=== PATIENT | male | born 1935 | race Caucasian/White ===

== ENCOUNTER → 2017-03-19 | Outpatient (CLI) | payer OTHER ==
[~2017-03-19] MED LIST: ASCO500T16 PO; ASPI325T45 PO; CHOL400C7 PO; DILT240C75 PO; TRIA37.5 PO
[2017-03-19 17:45] LABS: ALT/SGPT 17 U/L (12-78); AST/SGOT 17 U/L (15-37); BLOOD UREA NITROGEN 8 mg/dl (7-18); BUN/CREATININE RATIO 11.7 (10-20); CALCIUM 9.2 mg/dl (8.5-10.1); CARBON DIOXIDE 24 mmol/L (21-32); CHLORIDE 101 mmol/L (98-107); CREATININE 0.72 mg/dl (0.60-1.40); GLUCOSE 86 mg/dl (70-99); SODIUM 134 mmol/L (136-145)
[2017-03-19 17:55] LABS: ALB/GLOB RATIO 0.8 (0.9-2); ALKALINE PHOSPHATASE 102 U/L (45-117)
== END | disposition home or self-care (01) ==
LOC: C.LABPVFM 16:05
PROVIDERS: ATTEND Family Medicine
DX: R63.4 Abnormal weight loss (principal)

== ENCOUNTER 2018-07-21 07:35 | Inpatient (IN) ==
[2018-07-21] MEDS ORDERED: ALBUT/IPRATROP 3MG/0.5MG NEB 3 ML VIAL ONE (07:38)
[2018-07-21] MEDS ORDERED: SODIUM CHLORIDE 0.9% 500 ML IV SCH (07:45)
[2018-07-21] MEDS ORDERED: methylPREDNISolone 125 MG/2 ML VIAL IV STA (07:46)
[2018-07-21] MEDS ORDERED: ALBUT/IPRATROP 3MG/0.5MG NEB 3 ML VIAL NEB ONE (07:46)
--- NOTE | 2018-07-21 08:12 | XRay Report ---
XR chest 1V portable CLINICAL HISTORY: Chest Pain COMPARISON STUDY: Chest CT and chest radiograph July 20, 2018. FINDINGS: Moderate cardiomegaly is unchanged. There is no pneumothorax. Small bilateral pleural effus ions persist. Bibasilar opacities are again noted. Pulmonary edema has slightly increased. IMPRESSION: 1. Slight increase in pulmonary edema. 2. Persistent small bilateral pleural effusions and bibasilar opacities. Electronically signed by: Irving Hassan M.D. 07/21/2018 8:10 AM
[2018-07-21 08:46] LABS: Basophils # (auto) 0.02 K/uL (0-0.2); Basophils % (auto) 0.2 %; Eosinophils # (auto) 0.03 K/uL (0-0.5); Eosinophils % (auto) 0.4 %; Hematocrit (blood only) 37.8 % (42-52); Hemoglobin 12.8 g/dL (14.0-18.0); Immature Granulocytes # (auto) 0.02 K/uL (0.00-0.02); Immature Granulocytes % (auto) 0.2 %; Lymphocytes # (auto) 0.96 K/uL (1.2-3.4); Mean Corpuscular Hgb Conc 33.9 g/dL (32-36); Mean Corpuscular Volume 82.2 fL (80-100); Mean Platelet Volume 8.3 fL (7.4-10.4); Monocytes # (auto) 0.76 K/uL (0.11-0.59); Monocytes % (auto) 9.5 %; Neutrophils # (auto) 6.24 K/uL (1.4-6.5); Neutrophils % (auto) 77.7 %; Platelet Count 269 K/uL (130-400); RDW Coefficient of Variation 14.3 % (11.5-14.5); RDW Standard Deviation 42.9 fL (36.4-46.3); White Blood Count 8.03 K/uL (4.8-10.8)
[2018-07-21 08:52] LABS: Base Excess VBG -2.3 mEq/L; HCO3 VBG 23 mmol/L; PCO2 VBG 41 mmHg (38-50); PO2 VBG 24 mmHg; pH VBG 7.37 (7.36-7.41)
[2018-07-21] MEDS ORDERED: NITROGLYCERIN SL 0.4 MG/TAB TAB SL STA (09:01)
[2018-07-21 09:07] LABS: Alanine Aminotransferase 20 U/L (12-78); Albumin Level 3.4 gm/dl (3.4-5.0); Aspartate Aminotransferase 19 U/L (15-37); BUN Creatinine Ratio 16.1 (10-20); Blood Urea Nitrogen 15 mg/dl (7-18); Calcium 8.8 mg/dl (8.5-10.1); Carbon Dioxide 20 mmol/L (21-32); Chloride 99 mmol/L (98-107); Creatinine Clr Calc Pharmacy 51.3 ml/min; Est GFR (African American) 85.5; Est GFR (Non-African American) 73.7; Glucose 92 mg/dl (70-99); Magnesium 2.2 mg/dl (1.8-2.4); Oxygen Saturation VBG < 60.0 %; Sodium 132 mmol/L (136-145)
[2018-07-21 09:13] LABS: Albumin Globulin Ratio 0.8 (0.9-2); Alkaline Phosphatase 112 U/L (45-117); Globulin 4.4 gm/dl (2.5-4.0); NT Pro B Type Natriuretic Pept 2129 pg/ml (0-1800); Phosphorus 2.8 mg/dl (2.5-4.9); Total Protein 7.8 gm/dl (6.4-8.2); Troponin I < 0.015 ng/ml (0-0.045)
--- NOTE | 2018-07-21 10:39 | Emergency Department Note ---
Entered by Mitzi Shaver acting as a scribe for History of Present Illness General Chief complaint: Shortness of Breath/Dyspnea Time Seen by Provider: 07/21/18 07:38 Source: patient and other (nursing staff) History of Present Illness Onset (ago): day(s) (this morning) Location: chest Pain Consistency: + other (worsening) Quality: + other (shortness of breath) Relieved By: + medication (Duoneb) Associated symptoms: + denies other symptoms (diarrhea); no fever/chills (fever ) and no nausea/vomiting The patient is an 82 year old male who presents to the Emergency Room with complaints of worsening shortness of breath starting this morning. Per nursing staff, the patient was here yesterday for similar symptoms. He states that the patient was supposed to be admitted, but it sounds like he signed out AMA. He reports that that this morning the patient woke up and was unable to catch his breath so he called EMS. He reports that the patient received a Duoneb on the way in and it offered some relief, but not much. The patient notes that he is not normally on oxygen. The patient denies fever, nausea, vomiting, and diarrhea. Home Medications Home Medications Medication Instructions Recorded Confirmed Type aspirin 325 mg PO DAILY 06/12/18 07/21/18 History diltiazem HCl 360 mg PO QAM 06/12/18 07/21/18 History famotidine [Pepcid] 20 mg PO HS 06/12/18 07/21/18 History losartan [Cozaar] 25 mg PO QAM 06/12/18 07/21/18 History nitroglycerin [Nitrostat] 0.4 mg SUBLINGUAL UD PRN 06/12/18 07/21/18 History sennosides-docusate sodium 2 tab PO BID PRN 06/12/18 07/21/18 History [Senokot-S] albuterol sulfate [Ventolin HFA] 1 - 2 puff INHALATION QID PRN 07/20/18 History Allergies Allergy/AdvReac Type Severity Reaction Status Date / Time No Known Allergies Allergy Unverified 07/21/18 07:48 Past Med/Surg History Medical History Diaphragmatic hernia (Acute) Left sided chest pain (Acute) Chronic hyponatremia (Acute) Exposure to chemical inhalation (Acute) Hematuria (Acute) Generalized weakness (Acute) Hypokalemia (Acute) Hypomagnesemia (Acute) Hypokalemia (Chronic) Hypomagnesemia (Chronic) Surgical History Lower limb amputation status (Chronic) Family History Other Family history non-contributory Social History marital status: / Current Living Situation: Alone current occupational status: retired Other Information That Helps Us Care for You: No Feels Safe at Home: Yes Safety Concerns: Feels Safe At This Time Smoking Status: Current every day smoker Tobacco Type: pipe Do You Dip or Chew Tobacco: No Second Hand Exposure: Yes Tobacco Cessation Education Requested by Patient: No Hx Alcohol Use: Yes Alcohol type: hard liquor Alcohol Intake Frequency: a few times a week Hx Substance Use: No Beliefs That Will Affect Care: None Communication Ability: Effective Corrosion Technician Required: Yes Review of Systems See HPI for pertinent positives & negatives. and A total of 10 systems reviewed and were otherwise negative Physical Exam Vital Signs Vital Signs - 24 hr 07/21/18 07:46 07/21/18 07:49 07/21/18 08:00 Temperature 37 C Temperature Source Oral Sepsis Recent Fever Within 48 Hours No Sepsis Action Taken by Nursing No Action Required Pulse Rate 49 L 57 L 57 L Pulse Rate [Finger] Pulse Rhythm Regular Pulse Rhythm [Finger] Pulse Strength Normal Pulse Strength [Finger] Respiratory Rate 22 26 H 28 H Respiratory Effort / Characteristics Spontaneous Labored Respiratory Depth Shallow Respiratory Pattern Regular Blood Pressure 202/64 H 200/77 H Blood Pressure [Left Arm] Blood Pressure [Right Arm] Blood Pressure Mean 110 118 Blood Pressure Mean [Left Arm] Blood Pressure Mean [Right Arm] Blood Pressure Position Lying Blood Pressure Position [Left Arm] Blood Pressure Position [Right Arm] Pulse Oximetry 98 100 98 Oxygen Delivery Method Nasal Cannula Nasal Cannula Oxygen Flow Rate 3 Fraction of Inspired Oxygen 07/21/18 08:02 07/21/18 08:12 07/21/18 08:30 Temperature Temperature Source Sepsis Recent Fever Within 48 Hours Sepsis Action Taken by Nursing Pulse Rate 56 L 55 L Pulse Rate [Finger] 56 L Pulse Rhythm Pulse Rhythm [Finger] Pulse Strength Pulse Strength [Finger] Respiratory Rate 22 22 25 H Respiratory Effort / Characteristics Spontaneous Respiratory Depth Respiratory Pattern Blood Pressure 200/77 H Blood Pressure [Left Arm] Blood Pressure [Right Arm] Blood Pressure Mean 118 Blood Pressure Mean [Left Arm] Blood Pressure Mean [Right Arm] Blood Pressure Position Blood Pressure Position [Left Arm] Blood Pressure Position [Right Arm] Pulse Oximetry 100 98 100 Oxygen Delivery Method Nasal Cannula Nasal Cannula Nebulizer Oxygen Flow Rate 3 Fraction of Inspired Oxygen 07/21/18 08:31 07/21/18 08:32 07/21/18 09:00 Temperature Temperature Source Sepsis Recent Fever Within 48 Hours Sepsis Action Taken by Nursing Pulse Rate 54 L 58 L 58 L Pulse Rate [Finger] Pulse Rhythm Pulse Rhythm [Finger] Pulse Strength Pulse Strength [Finger] Respiratory Rate 26 H 25 H 28 H Respiratory Effort / Characteristics Respiratory Depth Respiratory Pattern Blood Pressure 211/65 H Blood Pressure [Left Arm] Blood Pressure [Right Arm] Blood Pressure Mean 113 Blood Pressure Mean [Left Arm] Blood Pressure Mean [Right Arm] Blood Pressure Position Blood Pressure Position [Left Arm] Blood Pressure Position [Right Arm] Pulse Oximetry 98 99 96 Oxygen Delivery Method Nebulizer Nasal Cannula Oxygen Flow Rate Fraction of Inspired Oxygen 07/21/18 09:02 07/21/18 09:03 07/21/18 09:20 Temperature Temperature Source Sepsis Recent Fever Within 48 Hours Sepsis Action Taken by Nursing Pulse Rate 62 60 55 L Pulse Rate [Finger] Pulse Rhythm Pulse Rhythm [Finger] Pulse Strength Pulse Strength [Finger] Respiratory Rate 16 30 H 28 H Respiratory Effort / Characteristics Spontaneous Respiratory Depth Normal Respiratory Pattern Regular Blood Pressure 181/70 H Blood Pressure [Left Arm] Blood Pressure [Right Arm] Blood Pressure Mean 107 Blood Pressure Mean [Left Arm] Blood Pressure Mean [Right Arm] Blood Pressure Position Blood Pressure Position [Left Arm] Blood Pressure Position [Right Arm] Pulse Oximetry 99 100 100 Oxygen Delivery Method Nasal Cannula Oxygen Flow Rate Fraction of Inspired Oxygen 30 07/21/18 09:30 07/21/18 09:31 07/21/18 10:00 Temperature Temperature Source Sepsis Recent Fever Within 48 Hours Sepsis Action Taken by Nursing Pulse Rate 56 L 55 L 57 L Pulse Rate [Finger] Pulse Rhythm Pulse Rhythm [Finger] Pulse Strength Pulse Strength [Finger] Respiratory Rate 26 H 22 23 Respiratory Effort / Characteristics Respiratory Depth Respiratory Pattern Blood Pressure 174/57 H Blood Pressure [Left Arm] Blood Pressure [Right Arm] Blood Pressure Mean 96 Blood Pressure Mean [Left Arm] Blood Pressure Mean [Right Arm] Blood Pressure Position Blood Pressure Position [Left Arm] Blood Pressure Position [Right Arm] Pulse Oximetry 98 98 97 Oxygen Delivery Method Oxygen Flow Rate Fraction of Inspired Oxygen 07/21/18 10:01 07/21/18 10:30 07/21/18 10:56 Temperature Temperature Source Sepsis Recent Fever Within 48 Hours Sepsis Action Taken by Nursing Pulse Rate 59 L 63 Pulse Rate [Finger] Pulse Rhythm Pulse Rhythm [Finger] Pulse Strength Pulse Strength [Finger] Respiratory Rate 22 21 Respiratory Effort / Characteristics Respiratory Depth Respiratory Pattern Blood Pressure 193/70 H Blood Pressure [Left Arm] Blood Pressure [Right Arm] Blood Pressure Mean 111 Blood Pressure Mean [Left Arm] Blood Pressure Mean [Right Arm] Blood Pressure Position Blood Pressure Position [Left Arm] Blood Pressure Position [Right Arm] Pulse Oximetry 99 96 Oxygen Delivery Method Nasal Cannula Oxygen Flow Rate 3 Fraction of Inspired Oxygen 07/21/18 11:42 07/21/18 15:36 07/21/18 19:04 Temperature 36.6 C 36.4 C L 36.7 C Temperature Source Oral Oral Oral Sepsis Recent Fever Within 48 Hours Sepsis Action Taken by Nursing Pulse Rate Pulse Rate [Finger] 66 64 83 Pulse Rhythm Pulse Rhythm [Finger] Regular Pulse Strength Pulse Strength [Finger] Normal Respiratory Rate 18 20 16 Respiratory Effort / Characteristics Non-Labored Spontaneous Non-Labored Spontaneous Respiratory Depth Normal Respiratory Pattern Regular Blood Pressure Blood Pressure [Left Arm] 199/67 H 184/70 H 94/71 L Blood Pressure [Right Arm] Blood Pressure Mean Blood Pressure Mean [Left Arm] 111 108 78 Blood Pressure Mean [Right Arm] Blood Pressure Position Blood Pressure Position [Left Arm] Sitting Sitting Sitting Blood Pressure Position [Right Arm] Pulse Oximetry 97 98 96 Oxygen Delivery Method Nasal Cannula Nasal Cannula Room Air Oxygen Flow Rate 3 1 Fraction of Inspired Oxygen 07/21/18 20:08 Temperature Temperature Source Sepsis Recent Fever Within 48 Hours Sepsis Action Taken by Nursing Pulse Rate Pulse Rate [Finger] Pulse Rhythm Pulse Rhythm [Finger] Pulse Strength Pulse Strength [Finger] Respiratory Rate Respiratory Effort / Characteristics Respiratory Depth Respiratory Pattern Blood Pressure Blood Pressure [Left Arm] Blood Pressure [Right Arm] 202/92 H Blood Pressure Mean Blood Pressure Mean [Left Arm] Blood Pressure Mean [Right Arm] 128 Blood Pressure Position Blood Pressure Position [Left Arm] Blood Pressure Position [Right Arm] Lying Pulse Oximetry 97 Oxygen Delivery Method Room Air Oxygen Flow Rate Fraction of Inspired Oxygen GENERAL: Awake, alert, dyspneic, in no distress HENT: Normocephalic, atraumatic. Oropharynx with dry mucous membranes and otherwise unremarkable. EYES: Normal conjunctiva. Sclera non-icteric. NECK: Supple. No nuchal rigidity. FROM. No JVD. RESPIRATORY: Scattered wheezes bilaterally. CARDIAC: Regular rate, normal rhythm. Extremities warm and well perfused. Pulses equal. ABDOMEN: Soft, non-distended. No tenderness to palpation. No rebound or guarding. No masses. RECTAL: Deferred. MUSCULOSKELETAL: Chest examination reveals no tenderness. The back is symmetrical on inspection without obvious abnormality. There is no CVA tenderness to palpation. No joint edema. LOWER EXTREMITIES: Right lower extremity BKA. Calf is non-tender. No edema. No discoloration. NEURO: Normal sensorium. No sensory or motor deficits noted. SKIN: No rash or jaundice noted. Course 0740: Past medical records reviewed. The patient was evaluated in room B2, and a complete history and physical examination were performed. 0902: I reevaluated the patient and updated him on his test results. I discussed the treatment plan with him. He verbally agrees and understands. 0931: I paged the hospitalist at this time. 0937: I reviewed the patient's case with Dr. Cruz Hospitalist. He will evaluate the patient for further management. 0943: I reevaluated the patient and he is feeling better. Consultations Consultation #1: I reviewed the patient's case with Dr. Cruz Hospitalist. He will evaluate the patient for further management. Time: 09:37 Administered Medications Albuterol (Duoneb) 3 ml NEB QIDR KAREN Stop: 08/20/18 15:59 Last Admin: 07/21/18 19:00 Dose: 3 ml Admin: 07/21/18 16:45 Dose: Not Given Clonidine HCl (Catapres) 0.1 mg PO Q8 PRN PRN Reason: Blood Pressure - High Stop: 08/20/18 11:41 Last Admin: 07/21/18 20:12 Dose: 0.1 mg Famotidine (Pepcid) 20 mg PO HS KAREN Stop: 08/20/18 20:59 Last Admin: 07/21/18 20:04 Dose: 20 mg Heparin Sodium (Porcine) (Heparin Sodium (Porcine)) 5,000 units SQ Q12 KAREN Stop: 08/20/18 20:59 Last Admin: 07/21/18 20:04 Dose: 5,000 units Losartan Potassium (Cozaar) 25 mg PO QAM KAREN Stop: 08/20/18 11:41 Last Admin: 07/21/18 14:04 Dose: 25 mg Prednisone (Prednisone) 40 mg PO DAILY KAREN Stop: 08/20/18 15:44 Last Admin: 07/21/18 17:22 Dose: 40 mg Discontinued Medications Albuterol (Duoneb) 12 ml NEB ONE ONE Stop: 07/21/18 07:47 Last Admin: 07/21/18 08:11 Dose: 12 ml Sodium Chloride (Nss) 500 mls @ 999 mls/hr IV .Q31M KAREN Stop: 07/21/18 08:15 Last Admin: 07/21/18 08:33 Dose: Not Given Methylprednisolone (Solumedrol) 125 mg IV NOW STA Stop: 07/21/18 07:47 Last Admin: 07/21/18 08:00 Dose: 125 mg Nitroglycerin (Nitrostat) 0.4 mg SL NOW STA Stop: 07/21/18 09:02 Last Admin: 07/21/18 09:05 Dose: 0.4 mg Medical Decision Making Differential Diagnosis Differential diagnosis: Etiologies such as infections, reactive airway disease, COPD, pneumonia, pleural effusion, pulmonary edema, ARDS, pneumothorax, CHF, cardiac ischemia, cardiac tamponade, dysrhythmia, anemia, pulmonary embolism, musculoskeletal, gastrointestinal process, as well as others were entertained. Medical Records Attestation: I reviewed the patient's medical records. Home Medications Current Medication List: was personally reviewed by me Laboratory Data Attestation: I reviewed the patient's lab results. Result diagrams: 07/21/18 08:32 07/21/18 08:32 Lab Results 07/21/18 07/21/18 07/21/18 Range/Units 08:32 08:32 08:32 WBC 8.03 (4.8-10.8) K/uL RBC 4.60 L (4.7-6.1) M/uL Hgb 12.8 L (14.0-18.0) g/dL Hct 37.8 L (42-52) % MCV 82.2 (80-100) fL MCH 27.8 (25-34) pg MCHC 33.9 (32-36) g/dL RDW Std Deviation 42.9 (36.4-46.3) fL RDW Coeff of Casimiro 14.3 (11.5-14.5) % Plt Count 269 (130-400) K/uL MPV 8.3 (7.4-10.4) fL Immature Gran % (Auto) 0.2 % Neut % (Auto) 77.7 % Lymph % (Auto) 12.0 % [place] % (Auto) 9.5 % Eos % (Auto) 0.4 % Baso % (Auto) 0.2 % Immature Gran # (Auto) 0.02 (0.00-0.02) K/uL Neut # (Auto) 6.24 (1.4-6.5) K/uL Lymph # (Auto) 0.96 L (1.2-3.4) K/uL Schoolcraft # (Auto) 0.76 H (0.11-0.59) K/uL Eos # (Auto) 0.03 (0-0.5) K/uL Baso # (Auto) 0.02 (0-0.2) K/uL PT (9.0-12.0) Seconds INR (0.9-1.1) VBG pH 7.37 (7.36-7.41) VBG pCO2 41 (38-50) mmHg VBG pO2 24 mmHg VBG HCO3 23 mmol/L VBG O2 Saturation < 60.0 % VBG Base Excess -2.3 mEq/L Barometric Pressure 736.4 mm/Hg Sodium 132 L (136-145) mmol/L Potassium 4.0 (3.5-5.1) mmol/L Chloride 99 (98-107) mmol/L Carbon Dioxide 20 L (21-32) mmol/L Anion Gap 13.0 H (3-11) BUN 15 (7-18) mg/dl Creatinine 0.95 (0.6-1.4) mg/dl Est Cr Clr Drug Dosing 51.3 ml/min Est GFR ( Amer) 85.5 Est GFR (Non-Af Amer) 73.7 BUN/Creatinine Ratio 16.1 (10-20) Glucose 92 (70-99) mg/dl Osmolality (280-300) mOsm/kg Calcium 8.8 (8.5-10.1) mg/dl Phosphorus 2.8 (2.5-4.9) mg/dl Magnesium 2.2 (1.8-2.4) mg/dl Total Bilirubin 1.0 (0.2-1) mg/dl AST 19 (15-37) U/L ALT 20 (12-78) U/L Alkaline Phosphatase 112 (45-117) U/L Troponin I < 0.015 (0-0.045) ng/ml NT-Pro-B Natriuret Pep 2129 H (0-1800) pg/ml Total Protein 7.8 (6.4-8.2) gm/dl Albumin 3.4 (3.4-5.0) gm/dl Globulin 4.4 H (2.5-4.0) gm/dl Albumin/Globulin Ratio 0.8 L (0.9-2) Lipase 81 (73-393) U/L 07/21/18 07/21/18 Range/Units 08:33 08:39 WBC (4.8-10.8) K/uL RBC (4.7-6.1) M/uL Hgb (14.0-18.0) g/dL Hct (42-52) % MCV (80-100) fL MCH (25-34) pg MCHC (32-36) g/dL RDW Std Deviation (36.4-46.3) fL RDW Coeff of Casimiro (11.5-14.5) % Plt Count (130-400) K/uL MPV (7.4-10.4) fL Immature Gran % (Auto) % Neut % (Auto) % Lymph % (Auto) % [place] % (Auto) % Eos % (Auto) % Baso % (Auto) % Immature Gran # (Auto) (0.00-0.02) K/uL Neut # (Auto) (1.4-6.5) K/uL Lymph # (Auto) (1.2-3.4) K/uL Schoolcraft # (Auto) (0.11-0.59) K/uL Eos # (Auto) (0-0.5) K/uL Baso # (Auto) (0-0.2) K/uL PT 10.6 (9.0-12.0) Seconds INR 1.1 (0.9-1.1) VBG pH (7.36-7.41) VBG pCO2 (38-50) mmHg VBG pO2 mmHg VBG HCO3 mmol/L VBG O2 Saturation % VBG Base Excess mEq/L Barometric Pressure mm/Hg Sodium (136-145) mmol/L Potassium (3.5-5.1) mmol/L Chloride (98-107) mmol/L Carbon Dioxide (21-32) mmol/L Anion Gap (3-11) BUN (7-18) mg/dl Creatinine (0.6-1.4) mg/dl Est Cr Clr Drug Dosing ml/min Est GFR ( Amer) Est GFR (Non-Af Amer) BUN/Creatinine Ratio (10-20) Glucose (70-99) mg/dl Osmolality 303 H (280-300) mOsm/kg Calcium (8.5-10.1) mg/dl Phosphorus (2.5-4.9) mg/dl Magnesium (1.8-2.4) mg/dl Total Bilirubin (0.2-1) mg/dl AST (15-37) U/L ALT (12-78) U/L Alkaline Phosphatase (45-117) U/L Troponin I (0-0.045) ng/ml NT-Pro-B Natriuret Pep (0-1800) pg/ml Total Protein (6.4-8.2) gm/dl Albumin (3.4-5.0) gm/dl Globulin (2.5-4.0) gm/dl Albumin/Globulin Ratio (0.9-2) Lipase (73-393) U/L Imaging Data Radiologist's Impression: Radiology results as stated below per my review and the radiologist's interpretation: XR chest 1V portable CLINICAL HISTORY: Chest Pain COMPARISON STUDY: Chest CT and chest radiograph July 20, 2018. FINDINGS: Moderate cardiomegaly is unchanged. There is no pneumothorax. Small bilateral pleural effusions persist. Bibasilar opacities are again noted. Pulmonary edema has slightly increased. IMPRESSION: 1. Slight increase in pulmonary edema. 2. Persistent small bilateral pleural effusions and bibasilar opacities. Electronically signed by: Irving Hassan M.D. 07/21/2018 8:10 AM ECG Data Attestation: I personally reviewed and interpreted this ECG as follows: Indication: SOB/dyspnea Rate (beats per minute): 55 Rhythm: sinus bradycardia Findings: + other (LVH with repolarization abnormality), + 1st degree AV block and + PVC; no acute ischemic change Comparison ECG Date: from (07/20/2018) Change: no significant change Blood Pressure Blood Pressure Findings: Elevated blood pressure Blood Pressure Disposition: further management by hospitalist DAMARIS Narrative The patient is a pleasant 82-year-old gentleman with a past medical history of paroxysmal A. fib not on Coumadin who presents emergency department with worsening shortness of breath after being seen in emergency department yesterday for shortness of breath per hpi. Yesterday the patient had a CT which demonstrated a hiatal hernia for which it was unclear if it was contributing the patient's symptoms. The patient was discharged although there is question of whether this was against medical advice as reported by EMS. On arrival the patient is mildly dyspneic but no acute distress, afebrile with blood pressure 200/70s and otherwise stable vital signs. Patient O2 saturation 94% on room air however with work of breathing. Chest x-ray demonstrates increasing pulmonary edema observed yesterday. EKG without acute ischemia and similar to prior. WBC within normal limits. Chemistry without signal acidosis. Troponin negative. BNP 2000s however without priors for comparison. Given the patient's persistent hypertension in the setting of pulmonary edema, symptoms suspicious for hypertensive emergency therefore patient was given nitroglycerin for afterload reduction and placed on BiPAP with improvement in his dyspnea. The patient does appear euvolemic at this time therefore will defer diuresis for now. Case was discussed with Dr. Escalante, [facility] hospitalist , who will evaluate the patient for admission. Impression & Plan Hypertensive emergency, Pulmonary edema Discharge Plan Visit Data *Final* Discharge Date/Time: 07/21/18 10:56 Chief Complaint: Shortness of Breath/Dyspnea ED Provider: Ford Gamino Discharge Problem: Hypertensive emergency, Pulmonary edema Patient Disposition: Admitted As Inpatient Discharge Instructions Interventions: ED Discharge Assessment Last Done: 07/21/18 10:56 The scribe's documentation has been prepared under my direction and personally reviewed by me in its entirety. I confirm that the note above accurately reflects all work, treatment, procedures, and medical decision making performed by me.
[2018-07-21] MEDS ORDERED: ONDANSETRON INJ 2 MG/ML 2 ML VIAL IV PRN (11:42)
[2018-07-21] MEDS ORDERED: NITROGLYCERIN SL 0.4 MG/TAB TAB SL PRN ×2 (11:42)
[2018-07-21] MEDS ORDERED: ALBUTEROL HFA 8 GM INHALER INH PRN (11:42)
[2018-07-21] MEDS: LOSARTAN POTASSIUM 25 MG TAB PO SCH (14:04)
--- NOTE | 2018-07-21 15:22 | History & Physical Report ---
Date of Service July 21, 2018 Assessment & Plan (1) Acute respiratory distress: Patient's acute respiratory distress is likely tobacco related and COPD. Emergency room doctor was concerned there may be some pulmonary edema seen on chest x-ray however this appears slight to my reading. The patient's clinical exam does reveal some wheezes and we will treat as such as COPD exacerbation. With oral prednisone and DuoNeb therapy (2) Diaphragmatic hernia: This was noted and apparently large. Dr. Almeida has been consulted (3) Left sided chest pain: Left-sided chest pain is not been ongoing will use aspirin therapy and recheck a troponin in the morning Regarding hypertensive urgency he will be started on his losartan with clonidine backup for blood pressure control if needed, he has relative bradycardia in the emergency department we will hold his diltiazem at this point in time but if we need rate and blood pressure control may consider a beta -radha (4) Chronic hyponatremia: Patient has had chronic hyponatremic which has been stable (5) DVT prophylaxis: heparin sc History of Present Illness Primary Care Provider: Nicole Quesada MD Patient is a difficult historian he comes in with increased shortness of breath and accelerated hypertension possible hypertensive urgency. Patient did not take any of his medications today. Patient states she had a 3-week history of having no energy and feeling short of breath. He has occasional chest discomfort associated with it. Patient has atrial fibrillation by history in his chart however he does not recollect ever being told atrial fibrillation. Other than not being on an anticoagulant he is on diltiazem which may support this. Patient states he lives alone does not have any local help. He was feeling better in the ER after having BiPAP and nitro started Allergies Allergy/AdvReac Type Severity Reaction Status Date / Time No Known Allergies Allergy Unverified 07/21/18 07:48 Home Medications Home Medications Medication Instructions Recorded Confirmed Type aspirin 325 mg PO DAILY 06/12/18 07/21/18 History diltiazem HCl 360 mg PO QAM 06/12/18 07/21/18 History famotidine [Pepcid] 20 mg PO HS 06/12/18 07/21/18 History losartan [Cozaar] 25 mg PO QAM 06/12/18 07/21/18 History nitroglycerin [Nitrostat] 0.4 mg SUBLINGUAL UD PRN 06/12/18 07/21/18 History sennosides-docusate sodium 2 tab PO BID PRN 06/12/18 07/21/18 History [Senokot-S] albuterol sulfate [Ventolin HFA] 1 - 2 puff INHALATION QID PRN 07/20/18 History Past Med/Surg History Medical History Diaphragmatic hernia (Acute) Left sided chest pain (Acute) Chronic hyponatremia (Acute) Exposure to chemical inhalation (Acute) Hematuria (Acute) Generalized weakness (Acute) Hypokalemia (Acute) Hypomagnesemia (Acute) Hypokalemia (Chronic) Hypomagnesemia (Chronic) Surgical History Lower limb amputation status (Chronic) Family History Other Family history non-contributory Social History marital status: / Current Living Situation: Alone current occupational status: retired Other Information That Helps Us Care for You: No Feels Safe at Home: Yes Safety Concerns: Feels Safe At This Time Smoking Status: Current every day smoker Tobacco Type: pipe Do You Dip or Chew Tobacco: No Second Hand Exposure: Yes Tobacco Cessation Education Requested by Patient: No Hx Alcohol Use: Yes Alcohol type: hard liquor Alcohol Intake Frequency: a few times a week Hx Substance Use: No Beliefs That Will Affect Care: None Communication Ability: Effective Shank Sorter Required: Yes Review of Systems ROS: Patient is thin has decreased strength and increased work of breathing No double vision blurry vision No problems with speech or swallowing No palpitations, suspension centralized chest pain which he describes as tight Dyspnea on exertion which is been significant progressive dyspnea at rest No abdominal pain nausea vomiting diarrhea changes in appetite or weight No burning urine urine frequency or changes in color No focal joint pain or muscle pain no pain to his left BKA stump area No skin rashes or oral lesions no skin breakdown on his BKA stump No unusual bruising or bleeding No focused back pain or numbness or loss of strength No changes in memory or confusion Physical Exam 2 Vital Signs (Past 24 Hours): Last Vital Signs Temp 36.6 C 07/21/18 11:42 Pulse 66 07/21/18 11:42 Resp 18 07/21/18 11:42 BP 199/67 H 07/21/18 11:42 Pulse Ox 97 07/21/18 11:42 The patient appeared well nourished and normally developed. Patient has some tobacco staining to his fingers Vital signs as documented. He is not stable vital signs after being treated with nitro and BiPAP Head exam is unremarkable. normocephalic, atraumatic Neck is without jugular venous distension, thyromegaly, or lymphademopathy Lungs are diminished bilaterally with expiratory wheezing Cardiac exam reveals Rhythm is regular. First and second heart sounds normal. Abdominal exam reveals normal bowel sounds, no masses, no organomegaly Right lower extremity is nonedematous Neurologic exam is A&Ox3, no focal deficits, strength is equal bilateral to upper extremities Psychologically seems neither anxious or depressed Skin is warm Dry without bruises or lesions _ (1) Diaphragmatic hernia Obstruction and gangrene presence: without obstruction or gangrene Qualified Code(s): K44.9 - Diaphragmatic hernia without obstruction or gangrene
[2018-07-21] MEDS ORDERED: METOPROLOL TARTRATE 1 MG/ML VIAL IV PRN (15:42)
[2018-07-21 16:16] LABS: INR 1.1 (0.9-1.1); Prothrombin Time 10.6 Seconds (9.0-12.0)
[2018-07-21] MEDS: ALBUT/IPRATROP 3MG/0.5MG NEB 3 ML VIAL NEB SCH ×2 (16:45→19:00)
[2018-07-21] MEDS: predniSONE 20 MG TAB PO SCH (17:22)
[2018-07-21] MEDS: HEPARIN SOD 5,000 UNIT/0.5 ML VIAL SQ SCH (20:04)
[2018-07-21] MEDS: FAMOTIDINE 20 MG TAB PO SCH (20:04)
[2018-07-21] MEDS: cloNIDine HCl 0.1 MG TAB PO PRN (20:12)
[2018-07-22] MEDS ORDERED: ACETAMINOPHEN 325 MG TAB PO PRN (06:12)
[2018-07-22 06:50] LABS: BUN Creatinine Ratio 20.6 (10-20); Calcium 8.6 mg/dl (8.5-10.1); Est GFR (African American) 93.8; Potassium 4.3 mmol/L (3.5-5.1)
[2018-07-22 06:54] LABS: Troponin I 0.019 ng/ml (0-0.045)
[2018-07-22] MEDS: ALBUT/IPRATROP 3MG/0.5MG NEB 3 ML VIAL NEB SCH ×4 (07:19→18:59)
[2018-07-22] MEDS: predniSONE 20 MG TAB PO SCH (07:38)
[2018-07-22] MEDS: LOSARTAN POTASSIUM 25 MG TAB PO SCH (07:38)
[2018-07-22] MEDS: HEPARIN SOD 5,000 UNIT/0.5 ML VIAL SQ SCH (07:38)
[2018-07-22] MEDS: ASPIRIN 325 MG ECTAB PO SCH (07:38)
[2018-07-22 10:11] LABS: Lyme Ab IgG w/WB Rflx Negative (Negative); Lyme Ab IgM w/WB Rflx Negative (Negative)
[2018-07-22] MEDS ORDERED: LIDOCAINE 2% JELLY 5 ML TUBE ONE (10:41)
[2018-07-22] MEDS ORDERED: COUGH DROP (SUGAR FREE) LOZ 24 LOZ/1 BOX BUCCAL ONE (10:46)
[2018-07-22] MEDS: LOSARTAN POTASSIUM 50 MG TAB PO SCH (12:12)
--- NOTE | 2018-07-22 14:57 | Hospitalist Progress Note ---
Date of Service July 22, 2018 Assessment & Plan (1) Acute respiratory distress: Patient's acute respiratory distress is likely tobacco related and COPD. Emergency room doctor was concerned there may be some pulmonary edema seen on chest x-ray however this appears slight to my reading. The patient's clinical exam does reveal some wheezes and we will treat as such as COPD exacerbation. Patient is improved with the steroids and inhaled medications will continue to use prednisone 40 with an outpatient taper echocardiogram is not you return to completely rule out the diagnosis of heart failure (2) Diaphragmatic hernia: This was noted and apparently large. Dr. Almeida has been consulted no surgical intervention is planned until his respiratory status is secured. The patient will see Dr. Almeida as an outpatient patient has no complaints of eating or other symptomatology associated with any chest pain is not return (3) Left sided chest pain: Left-sided chest pain is not been ongoing we will need to hold his aspirin therapy because of his gross hematuria There is been a favorable trend of his troponin to suggest this is not Court acute coronary syndrome Regarding hypertensive urgency escalation in dosing of his losartan with continue clonidine backup for blood pressure control if needed, he has relative bradycardia has improved with cessation of his diltiazem we will plan on stopping this at time of discharge (4) Chronic hyponatremia: Patient has had chronic hyponatremic which remains stable (5) DVT prophylaxis: heparin sc this will be held given his gross hematuria we will place him on SCDs (6) Hematuria: The patient is a Nguyễn catheter remain even at time of discharge due to his urinary retention. He will have a urine ultrasound and will follow up with urology Subjective Patient states he feels much better today and his breathing is better. He did have problems urinating overnight a Nguyễn catheter was placed with resultant gross hematuria this is not been lightening during the day but there is been no clots or decreased flow. We are pending an echocardiogram result Review of Systems ROS: well nourished well developed. No double vision blurry vision No problems with speech or swallowing No palpitations, chest pain or pressure No Wheezing or improve dyspnea on exertion but still present No abdominal pain nausea vomiting diarrhea changes in appetite or weight No burning urine urine frequency or does have blood in his urine was complaining of having some retention No focal joint pain or muscle pain No skin rashes or oral lesions No unusual bruising or bleeding No focused back pain or numbness or loss of strength No changes in memory or confusion Physical Exam 2 Vital Signs (Past 24 Hours): Last Vital Signs Temp 36.5 C 07/22/18 10:43 Pulse 67 07/22/18 11:34 Resp 16 07/22/18 11:34 BP 180/69 H 07/22/18 10:43 Pulse Ox 95 07/22/18 11:34 the patient appeared well nourished and normally developed. Vital signs as documented. Head exam is unremarkable. normocephalic, atraumatic Neck is without jugular venous distension, thyromegaly, or lymphademopathy Lungs wheezing is resolved the patient repeat remains mildly dyspneic at rest Cardiac exam reveals Rhythm is regular. First and second heart sounds normal. Abdominal exam reveals normal bowel sounds, no masses, no organomegaly Extremities are nonedematous and both pedal pulses are present Neurologic exam is A&Ox3, no focal deficits, strength is equal bilateral Psychologically seems neither anxious or depressed Skin is warm Dry without bruises or lesions Grossly bloody urine is seen _ (1) Diaphragmatic hernia Obstruction and gangrene presence: without obstruction or gangrene Qualified Code(s): K44.9 - Diaphragmatic hernia without obstruction or gangrene
[2018-07-22] MEDS: FAMOTIDINE 20 MG TAB PO SCH (21:57)
[2018-07-23] MEDS ORDERED: HALOPERIDOL LACTATE 5 MG/ML 1 ML VIAL IV STA (01:45)
--- NOTE | 2018-07-23 01:52 | Family Medicine Progress Note ---
Date of Service July 23, 2018 Subjective Spoke to RN at 2300 requesting order for soft non-violent restraints due to combative behaviour (throwing objects and kicking at the staff) Soft Restraints applied Around midnight spoke to RN that his pressures have been poorly controlled throughout entire admission. They have been unable to get a good reading at times because of his combative nature. Spoke to Dr. Correa at 0130 regarding blood pressure and combative nature. Recommendations made to discontinue restraints to prevent injury. Further recommendations to give Haldol 5mg IV for combativeness and 1mg Ativan if Haldol does not work. Soft restaints discontinued. 5mg Haldol held while Dr. Correa evaluates the patient. Day Team: Please address the patients uncontrolled hypertension and underlying causes/ reason for combative nature. Thank you. Physical Exam 2 Vital Signs (Past 24 Hours): Last Vital Signs Temp 36.5 C 07/22/18 23:15 Pulse 66 07/22/18 23:15 Resp 20 07/22/18 23:15 BP 195/79 H 07/22/18 23:15 Pulse Ox 98 07/22/18 23:15
[2018-07-23] MEDS ORDERED: HALOPERIDOL LACTATE 5 MG/ML 1 ML VIAL IV SCH (04:17)
[2018-07-23 06:20] LABS: Hemoglobin 11.4 g/dL (14.0-18.0); Mean Corpuscular Hgb Conc 33.5 g/dL (32-36); Mean Corpuscular Volume 81.5 fL (80-100); Mean Platelet Volume 8.9 fL (7.4-10.4); Platelet Count 223 K/uL (130-400); RDW Coefficient of Variation 14.3 % (11.5-14.5); RDW Standard Deviation 42.2 fL (36.4-46.3); Red Blood Count 4.17 M/uL (4.7-6.1); White Blood Count 14.08 K/uL (4.8-10.8)
[2018-07-23] MEDS ORDERED: ENALAPRILAT 2.5 MG in DEXTROSE 5% 25 ML IV ONE (06:30)
[2018-07-23 06:54] LABS: BUN Creatinine Ratio 21.1 (10-20); Calcium 8.4 mg/dl (8.5-10.1); Creatinine Clr Calc Pharmacy 60.7 ml/min; Est GFR (African American) 96.7; Est GFR (Non-African American) 83.5; Potassium 3.6 mmol/L (3.5-5.1)
[2018-07-23] MEDS: LOSARTAN POTASSIUM 50 MG TAB PO SCH ×2 (08:35→09:44)
[2018-07-23] MEDS: predniSONE 20 MG TAB PO SCH ×2 (08:36→09:45)
--- NOTE | 2018-07-23 08:51 | Hospitalist Progress Note ---
Date of Service July 23, 2018 Assessment & Plan (1) Delirium: Patient episode of hospital delirium last evening. It was associate with continued hypertension. His losartan has been increased on 07/22 and the patient had as needed clonidine for use. The patient did have hypertension while agitated. Is unclear whether he could have some alcohol withdrawal associated with it. He is now currently sedated we will continue to follow for symptom resolution. (2) Acute respiratory distress: COPD exacerbation. Patient is improved with the steroids and inhaled medications will continue to use prednisone 40 with an outpatient taper (3) Diaphragmatic hernia: This was noted and apparently large. Dr. Almeida has been consulted no surgical intervention is planned until his respiratory status is secured. The patient will see Dr. Almeida as an outpatient patient has no complaints of eating or other symptomatology associated with any chest pain is not return (4) Left sided chest pain: Left-sided chest pain is not been ongoing we will need to hold his aspirin therapy because of his gross hematuria There is been a favorable trend of his troponin to suggest this is supportive of acute coronary syndrome Regarding hypertensive urgency blood pressure was elevated with agitation, did have escalation in dosing of his losartan07/22, adding amlodipine 07/23 with continue clonidine backup for blood pressure control if needed, he has relative bradycardia has improved with cessation of his diltiazem we will plan on stopping this at time of discharge (5) Chronic hyponatremia: Patient has had chronic hyponatremic which remains stable (6) DVT prophylaxis: heparin sc this will be held given his gross hematuria we will place him on SCDs (7) Hematuria: The patient is a Nguyễn catheter remain even at time of discharge due to his urinary retention. Urine culture has been negative he will need outpatient follow-up with urology as he states he has had pre-hospital symptoms of urinary retention Subjective Patient has significant sundowning episode last evening requiring chemical restraints he is now sedate he does awake tell me his name knows is in the hospital but falls quickly back to sleep he denies focus problems he is laying flat in bed and breathing easily. He does have some suggestion of persistent hypertensive problems. Review of Systems Unobtainable due to cognitive status Physical Exam 2 Vital Signs (Past 24 Hours): Last Vital Signs Temp 36.4 C L 07/23/18 06:58 Pulse 48 L 07/23/18 06:58 Resp 18 07/23/18 06:58 BP 147/48 H 07/23/18 06:58 Pulse Ox 98 07/23/18 06:58 The patient appeared well nourished and normally developed. Is sedate Vital signs as documented. Blood pressure has been controlled by dose of enalapril IV Head exam is unremarkable. normocephalic, atraumatic Neck is without jugular venous distension, thyromegaly, or lymphademopathy Lungs are clear to auscultation and percussion but slightly diminished. Cardiac exam reveals Rhythm is regular with slightly bradycardic. First and second heart sounds normal. Abdominal exam reveals normal bowel sounds, no masses, no organomegaly Extremities are nonedematous and both pedal pulses are present Neurologic exam lethargic and sedate _ (1) Diaphragmatic hernia Obstruction and gangrene presence: without obstruction or gangrene Qualified Code(s): K44.9 - Diaphragmatic hernia without obstruction or gangrene
[2018-07-23] MEDS: ALBUT/IPRATROP 3MG/0.5MG NEB 3 ML VIAL NEB SCH ×4 (08:56→19:52)
[2018-07-23] MEDS: AMLODIPINE BESYLATE 5 MG TAB PO SCH (09:42)
[2018-07-23] MEDS: FAMOTIDINE 20 MG TAB PO SCH (20:47)
[2018-07-24] MEDS ORDERED: ENALAPRILAT 2.5 MG in DEXTROSE 5% 25 ML IV STA (04:41)
[2018-07-24] MEDS: ALBUT/IPRATROP 3MG/0.5MG NEB 3 ML VIAL NEB SCH ×2 (07:04→11:07)
[2018-07-24 07:31] LABS: Hematocrit (blood only) 35.6 % (42-52); Mean Corpuscular Hgb Conc 33.7 g/dL (32-36); Mean Corpuscular Volume 81.7 fL (80-100); Mean Platelet Volume 8.8 fL (7.4-10.4); Platelet Count 221 K/uL (130-400); RDW Coefficient of Variation 14.2 % (11.5-14.5); RDW Standard Deviation 42.4 fL (36.4-46.3); Red Blood Count 4.36 M/uL (4.7-6.1)
[2018-07-24] MEDS: AMLODIPINE BESYLATE 5 MG TAB PO SCH (08:08)
[2018-07-24] MEDS: LOSARTAN POTASSIUM 50 MG TAB PO SCH (08:08)
[2018-07-24] MEDS: predniSONE 20 MG TAB PO SCH (08:08)
[2018-07-24 08:13] LABS: BUN Creatinine Ratio 21.5 (10-20); Calcium 8.4 mg/dl (8.5-10.1); Creatinine Clr Calc Pharmacy 55.8 ml/min; Est GFR (African American) 93.8; Potassium 3.7 mmol/L (3.5-5.1)
--- NOTE | 2018-07-24 15:20 | Hospitalist Progress Note ---
Date of Service July 24, 2018 Assessment & Plan (1) Delirium: Patient episode of hospital delirium 07/22-. It was associate with continued hypertension. His losartan has been increased on 07/22 and amlodipine at 07/23 the patient has as needed clonidine for use. The patient did have hypertension while agitated. His mental status is cleared his systolic hypertension remains this will continue to be addressed (2) Acute respiratory distress: COPD exacerbation. Transitioning to metered-dose inhalers from nebulizers continuing prednisone with taper Patient is improved with the steroids and inhaled medications will continue to use prednisone 40 with an outpatient taper As mentioned is right lower lobe changes on auscultation exam chest x-ray is pending (3) Diaphragmatic hernia: This was noted and apparently large. Dr. Almeida has been consulted no surgical intervention is planned until his respiratory status is improved. The patient will see Dr. Almeida as an outpatient patient has no complaints of eating or other symptomatology associated with any chest pain is not return (4) Left sided chest pain: Left-sided chest pain is not been ongoing his gross hematuria has resolved we will restart his aspirin but continue to hold his chemoprophylaxis for DVT There is been a favorable trend of his troponin to suggest this is supportive of acute coronary syndrome Regarding hypertensive urgency blood pressure was elevated with agitation, did have escalation in dosing of his losartan07/22, adding amlodipine 07/23 with continue clonidine backup for blood pressure control if needed, he has relative bradycardia has improved with cessation of his diltiazem we will plan on stopping this at time of discharge (5) Chronic hyponatremia: Patient has had chronic hyponatremic which remains stable (6) DVT prophylaxis: heparin sc this will be held given his gross hematuria we will place him on SCDs (7) Hematuria: The patient is a Nguyễn catheter remain even at time of discharge due to his urinary retention. Urine culture has been negative he will need outpatient follow-up with urology as he states he has had pre-hospital symptoms of urinary retention Subjective Patient is much less agitated than the prior day he is now stating he is not sure about his final disposition. Initially he had some discordance with his son however son was in the room and he now asked his son to be his power of consumer attorney. Patient is still fairly weak he is resistant to considering a subacute rehab facility his breathing has improved but is still labored and he now has new found right lower lobe rales. This is concerning given the lethargy and a possible pneumonia x-ray is pending Review of Systems ROS: He is then and feels weak and tired No double vision blurry vision No problems with speech or swallowing No palpitations, chest pain or pressure No Wheezing or chronic coughing and dyspnea at rest No abdominal pain nausea vomiting diarrhea changes in appetite or weight No burning urine urine frequency or changes in color No focal joint pain or muscle pain No skin rashes or oral lesions No unusual bruising or bleeding No focused back pain or numbness or loss of strength No changes in memory or confusion Physical Exam 2 Vital Signs (Past 24 Hours): Last Vital Signs Temp 36.6 C 07/24/18 12:40 Pulse 68 07/24/18 12:40 Resp 16 07/24/18 12:40 BP 187/75 H 07/24/18 12:40 Pulse Ox 98 07/24/18 12:40 The patient appeared thin Vital signs as documented. Head exam is unremarkable. normocephalic, atraumatic Neck is without jugular venous distension, thyromegaly, or lymphademopathy Lungs are bibasilar rales and prolonged expiratory phase consistent with COPD Cardiac exam reveals Rhythm is regular. First and second heart sounds normal. Abdominal exam reveals normal bowel sounds, no masses, no organomegaly Extremities are nonedematous he does have a previous BKA Neurologic exam is A&Ox3, no focal deficits to cranial nerves Psychologically seems neither depressed he is concerned about his final disposition Skin is warm Dry without bruises or lesions _ (1) Diaphragmatic hernia Obstruction and gangrene presence: without obstruction or gangrene Qualified Code(s): K44.9 - Diaphragmatic hernia without obstruction or gangrene
--- NOTE | 2018-07-24 16:48 | XRay Report ---
XR chest 2V routine HISTORY: 82 years-old Male eval RLL ? aspiration acute shortness of breath with possible aspiration pneumonitis COMPARISON: CTA of the chest 07/20/2017, chest radiograph 07/21/2017 TECHNIQUE: Portable AP and lateral views of the chest FINDINGS: Cardiac silhouette is enlarged, unchanged. Lungs are hyperinflated. Pulmonary vascular congestion wit h interstitial coarsening redemonstrated. Bilateral pleural effusions with bibasilar opacities redemo nstrated. Slightly improved aeration noted about the left lung base. Degenerative changes of the shou lders and spine. IMPRESSION: 1. Cardiomegaly with mild pulmonary edema. 2. Small bilateral pleural effusions 3. Persistent bibasilar opacities, slightly decreased about the left lung base suggestive of atelecta sis with pneumonitis considered less likely. The above report was generated using voice recognition software. It may contain grammatical, syntax o r spelling errors. Electronically signed by: Sandro Art M.D. 07/24/2018 4:47 PM
[2018-07-24] MEDS: IPRATROPIUM BROMIDE/ALBUTEROL respimat INH INH SCH ×2 (17:06→21:13)
[2018-07-24] MEDS: TAMSULOSIN HCL 0.4 MG CAP PO SCH (21:14)
[2018-07-24] MEDS: FAMOTIDINE 20 MG TAB PO SCH (21:14)
[2018-07-25 06:41] LABS: Hematocrit (blood only) 37.2 % (42-52); Hemoglobin 12.6 g/dL (14.0-18.0); Mean Corpuscular Hgb Conc 33.9 g/dL (32-36); Mean Corpuscular Volume 81.2 fL (80-100); Mean Platelet Volume 8.8 fL (7.4-10.4); Platelet Count 240 K/uL (130-400); RDW Coefficient of Variation 14.1 % (11.5-14.5); Red Blood Count 4.58 M/uL (4.7-6.1); White Blood Count 9.96 K/uL (4.8-10.8)
[2018-07-25 07:15] LABS: Calcium 8.5 mg/dl (8.5-10.1); Creatinine Clr Calc Pharmacy 56.5 ml/min; Est GFR (African American) 94.3; Est GFR (Non-African American) 81.4; Potassium 3.7 mmol/L (3.5-5.1)
[2018-07-25] MEDS: LOSARTAN POTASSIUM 50 MG TAB PO SCH (08:39)
[2018-07-25] MEDS: IPRATROPIUM BROMIDE/ALBUTEROL respimat INH INH SCH ×4 (08:39→20:53)
[2018-07-25] MEDS: ASPIRIN 325 MG ECTAB PO SCH (08:39)
[2018-07-25] MEDS: predniSONE 20 MG TAB PO SCH (08:40)
[2018-07-25] MEDS: cloNIDine HCl 0.1 MG TAB PO PRN (08:40)
[2018-07-25] MEDS: AMLODIPINE BESYLATE 5 MG TAB PO SCH (08:40)
[2018-07-25] MEDS: FINASTERIDE 5 MG TAB PO SCH (08:40)
[2018-07-25] MEDS ORDERED: LOSARTAN POTASSIUM 25 MG TAB PO ONE (09:29)
[2018-07-25] MEDS ORDERED: hydroCHLOROthiazide 25 MG TAB PO STA (09:30)
[2018-07-25] MEDS: FLUTICASONE/SALMETEROL 250/50 (ADVAIR) 14 PUFF/1 INHALER INH SCH ×2 (10:10→20:53)
--- NOTE | 2018-07-25 15:29 | Hospitalist Progress Note ---
Date of Service July 25, 2018 Assessment & Plan (1) Delirium: Patient episode of hospital delirium 07/22-. It was associate with continued hypertension. His losartan has been increased on 07/22 and amlodipine at 07/23 the patient has as needed clonidine for use. The patient did have hypertension while agitated. His mental status is cleared his systolic hypertension remains this will continue to be addressed (2) Acute respiratory distress: COPD exacerbation. Transitioning to metered-dose inhalers adding Advair on 07/25 continuing prednisone with taper Patient is improved with the steroids and inhaled medications but not significantly over the last 2 days A chest x-ray from 07/24 is without infiltrate or concern for aspiration pneumonia (3) Diaphragmatic hernia: This was noted and apparently large. Dr. Almeida has been consulted no surgical intervention is planned until his respiratory status is improved. The patient will see Dr. Almeida as an outpatient patient has no complaints of eating or other symptomatology associated with any chest pain is not return (4) Left sided chest pain: Left-sided chest pain had recurred on 07/25 EKG without significant recurrence of acute injury seems to be sharp in nature and likely may be related to his hiatal hernia and is did follow administration of medication by mouth Regarding hypertensive urgency blood pressure was elevated with agitation, did have escalation in dosing of his losartan07/22, adding amlodipine 07/23 with scheduled and as needed clonidine backup for blood pressure control if needed, he has relative bradycardia has improved with cessation of his diltiazem we will plan on stopping this at time of discharge (5) Chronic hyponatremia: Patient has had chronic hyponatremic which remains stable (6) DVT prophylaxis: heparin sc this will be held given his gross hematuria we will place him on SCDs hematuria is resolved (7) Hematuria: The patient is a Nguyễn catheter remain even at time of discharge due to his urinary retention. Urine culture has been negative he will need outpatient follow-up with urology as he states he has had pre-hospital symptoms of urinary retention Subjective Patient is not clear about his decision for final disposition. He is still having some persistent shortness of breath and his blood pressures been challenging to control. Hydrochlorothiazide is been added to his losartan will add additional scheduled clonidine is not seem to be affecting his blood pressures much as diltiazem has reduced heart rate Review of Systems ROS: well patient is weak and tired he seems short of breath No double vision blurry vision No problems with speech or swallowing No palpitations, chest pain or pressure Persistently dyspneic nonproductive cough No abdominal pain nausea vomiting diarrhea changes in appetite or weight No burning urine urine frequency or changes in color No focal joint pain or muscle pain No skin rashes or oral lesions No unusual bruising or bleeding No focused back pain or numbness or loss of strength No changes in memory or confusion Physical Exam 2 Vital Signs (Past 24 Hours): Last Vital Signs Temp 36.5 C 07/25/18 08:03 Pulse 69 07/25/18 09:08 Resp 16 07/25/18 09:08 BP 189/70 H 07/25/18 09:08 Pulse Ox 99 07/25/18 09:08 The patient appeared thin poor self-care still short of breath Vital signs as documented. Tachypneic and hypertensive Head exam is unremarkable. normocephalic, atraumatic Neck is without jugular venous distension, thyromegaly, or lymphademopathy Lungs are diminished throughout with prolonged expiratory phase Cardiac exam reveals Rhythm is regular. Systolic murmur is heard Abdominal exam reveals normal bowel sounds, no masses, no organomegaly Extremitie BK is present other legs without edema Neurologic exam is A&Ox3, no focal deficits, strength is equal bilateral Psychologically seems neither depressed Skin is warm Dry without bruises or lesions _ (1) Diaphragmatic hernia Obstruction and gangrene presence: without obstruction or gangrene Qualified Code(s): K44.9 - Diaphragmatic hernia without obstruction or gangrene
[2018-07-25] MEDS: cloNIDine HCl 0.1 MG TAB PO SCH (20:54)
[2018-07-25] MEDS: FAMOTIDINE 20 MG TAB PO SCH (20:54)
[2018-07-25] MEDS: TAMSULOSIN HCL 0.4 MG CAP PO SCH (20:54)
[2018-07-26] MEDS: IPRATROPIUM BROMIDE/ALBUTEROL respimat INH INH SCH ×4 (09:16→21:31)
[2018-07-26] MEDS: FLUTICASONE/SALMETEROL 250/50 (ADVAIR) 14 PUFF/1 INHALER INH SCH ×2 (09:16→21:30)
[2018-07-26] MEDS: ASPIRIN 325 MG ECTAB PO SCH (09:17)
[2018-07-26] MEDS: cloNIDine HCl 0.1 MG TAB PO SCH ×2 (09:17→21:31)
[2018-07-26] MEDS: AMLODIPINE BESYLATE 5 MG TAB PO SCH (09:18)
[2018-07-26] MEDS: LOSARTAN POTASSIUM 50 MG TAB PO SCH (09:18)
[2018-07-26] MEDS: FINASTERIDE 5 MG TAB PO SCH (09:19)
[2018-07-26] MEDS: hydroCHLOROthiazide 25 MG TAB PO SCH (09:19)
[2018-07-26] MEDS: predniSONE 10 MG TABLET PO SCH (09:20)
[2018-07-26] MEDS: DOCUSATE SODIUM/SENNA 50/8.6MG TAB PO PRN (13:40)
--- NOTE | 2018-07-26 14:39 | Hospitalist Progress Note ---
Date of Service July 26, 2018 Assessment & Plan (1) Delirium: Patient episode of hospital delirium 07/22-. It was associate with continued hypertension. His losartan has been increased on 07/22 and amlodipine at 07/23, hctz added to lorsartan and scheduled clonidine also added (2) Acute respiratory distress: COPD exacerbation. Transitioning to metered-dose inhalers improved after adding Advair on 07/25 continuing prednisone with taper A chest x-ray from 07/24 is without infiltrate or concern for aspiration pneumonia (3) Diaphragmatic hernia: This was noted and apparently large. Dr. Almeida has been consulted no surgical intervention is planned until his respiratory status is improved. The patient will see Dr. Almeida as an outpatient patient has no complaints of eating or other symptomatology associated with any chest pain is not return (4) Left sided chest pain: Left-sided chest pain had recurred on 07/25 EKG without significant recurrence of acute injury seems to be sharp in nature and likely may be related to his hiatal hernia and is did follow administration of medication by mouth he has relative bradycardia has improved with cessation of his diltiazem we will plan on stopping this at time of discharge (5) Chronic hyponatremia: Patient has had chronic hyponatremia which remains stable (6) DVT prophylaxis: heparin sc this will be held given his gross hematuria we will place him on SCDs hematuria has subsequently resolved (7) Hematuria: pt wishes to try to void witout martines, will still recommend urology follow up after discharge if able to remove martines Subjective Patient states he feels much better he looks improved after adding the Advair to his pulmonary regimen. He is encouraged to try to have his Martines catheter removed his hematuria has resolved we did start Proscar and Flomax and hopefully he will be able to tolerate Review of Systems ROS: well nourished well developed. No double vision blurry vision No problems with speech or swallowing No palpitations, chest pain or pressure No Wheezing or breathing issues No abdominal pain nausea vomiting diarrhea changes in appetite or weight No burning urine urine frequency or changes in color No skin rashes or oral lesions No unusual bruising or bleeding No focused back pain or numbness or loss of strength No changes in memory or confusion Physical Exam 2 Vital Signs (Past 24 Hours): Last Vital Signs Temp 36.6 C 07/26/18 07:30 Pulse 54 L 07/26/18 07:30 Resp 18 07/26/18 07:30 BP 165/58 H 07/26/18 07:30 Pulse Ox 100 07/26/18 07:30 The patient appeared thin and in no distress Vital signs as documented. Head exam is unremarkable. normocephalic, atraumatic Neck is without jugular venous distension, thyromegaly, or lymphademopathy Lungs are clear but with poor air movement no wheezes Cardiac exam reveals Rhythm is regular. First and second heart sounds normal. Abdominal exam reveals normal bowel sounds, no masses, no organomegaly Neurologic exam is A&Ox3, there is no deficits of facial innervation Psychologically seems neither anxious or depressed Skin is warm Dry without bruises or lesions _ (1) Diaphragmatic hernia Obstruction and gangrene presence: without obstruction or gangrene Qualified Code(s): K44.9 - Diaphragmatic hernia without obstruction or gangrene
[2018-07-26] MEDS: FAMOTIDINE 20 MG TAB PO SCH (21:31)
[2018-07-26] MEDS: TAMSULOSIN HCL 0.4 MG CAP PO SCH (21:32)
[2018-07-26] MEDS ORDERED: COUGH DROP (SUGAR FREE) LOZ 24 LOZ/1 BOX BUCCAL PRN (21:40)
[2018-07-27 07:55] LABS: Hematocrit (blood only) 39.2 % (42-52); Hemoglobin 13.2 g/dL (14.0-18.0); Mean Corpuscular Hgb Conc 33.7 g/dL (32-36); Mean Corpuscular Volume 81.5 fL (80-100); Mean Platelet Volume 8.8 fL (7.4-10.4); Platelet Count 292 K/uL (130-400); RDW Coefficient of Variation 13.9 % (11.5-14.5); RDW Standard Deviation 41.6 fL (36.4-46.3); Red Blood Count 4.81 M/uL (4.7-6.1); White Blood Count 9.21 K/uL (4.8-10.8)
--- NOTE | 2018-07-27 08:47 | Hospitalist Progress Note ---
Date of Service July 27, 2018 Assessment & Plan (1) Delirium: Patient episode of hospital delirium 07/22-. It was associate with continued hypertension. His losartan has been increased on 07/22 and amlodipine at 07/27, hctz added to lorsartan and stopped scheduled clonidine due to recurrence of bradycardia (2) Acute respiratory distress: COPD exacerbation. Transitioning to metered-dose inhalers improved after adding Advair on 07/25 continuing prednisone with taper A chest x-ray from 07/24 is without infiltrate or concern for aspiration pneumonia (3) Diaphragmatic hernia: This was noted and apparently large. Dr. Almeida has been consulted no surgical intervention is planned until his respiratory status is improved. The patient will see Dr. Almeida as an outpatient patient has no complaints of eating or other symptomatology associated with any chest pain is not return (4) Left sided chest pain: Left-sided chest pain had recurred on 07/25 EKG without significant recurrence of acute injury seems to be sharp in nature and likely may be related to his hiatal hernia and is did follow administration of medication by mouth he has return of bradycardia seems to be sensitive to diltiazem and clonidine (5) Chronic hyponatremia: Patient has had chronic hyponatremia which remains stable (6) DVT prophylaxis: heparin sc this will be held given his gross hematuria we will place him on SCDs hematuria has subsequently resolved (7) Hematuria: pt wishes to try to void witout martines, will still recommend urology follow up after discharge if able to remove martines Subjective Patient is improved greatly however he is now changing his treatment about his disposition. He still does not wish to go to group home he says he cannot afford a boarding home he does not want to go to assisted living but he feels his own home is unfit for living he says it is a mobile home in bad condition he is heating it with kerosene heaters a lot of work. I been in touch with case management area association of aging is involved Review of Systems ROS: Thin and weak No double vision blurry vision No problems with speech or swallowing No palpitations, chest pain or pressure No Wheezing baseline dyspnea No abdominal pain nausea vomiting diarrhea changes in appetite or weight No burning urine urine frequency or changes in color No focal joint pain or muscle pain does have an amputation No skin rashes or oral lesions No unusual bruising or bleeding No focused back pain or numbness or loss of strength globally weak No changes in memory or confusion Physical Exam 2 Vital Signs (Past 24 Hours): Last Vital Signs Temp 36.4 C L 07/27/18 07:51 Pulse 46 L 07/27/18 07:51 Resp 16 07/27/18 07:51 BP 137/62 07/27/18 07:51 Pulse Ox 98 07/27/18 07:51 The patient appeared thin and initially was uncapped Vital signs as documented. Head exam is unremarkable. normocephalic, atraumatic Neck is without jugular venous distension, thyromegaly, or lymphademopathy Lungs are diminished bilaterally no wheezes Cardiac exam reveals Rhythm is regular. First and second heart sounds normal. Abdominal exam reveals normal bowel sounds, no masses, soft nontender Patient is an amputation and prosthesis no lower extremity edema Neurologic exam is A&Ox3, globally weak but can move about the room with a wheelchair and his prosthesis when applied Psychologically seems anxious and depressed _ (1) Diaphragmatic hernia Obstruction and gangrene presence: without obstruction or gangrene Qualified Code(s): K44.9 - Diaphragmatic hernia without obstruction or gangrene
[2018-07-27] MEDS: IPRATROPIUM BROMIDE/ALBUTEROL respimat INH INH SCH ×4 (08:50→21:19)
[2018-07-27] MEDS: FLUTICASONE/SALMETEROL 250/50 (ADVAIR) 14 PUFF/1 INHALER INH SCH ×2 (08:51→21:18)
[2018-07-27] MEDS: LOSARTAN POTASSIUM 50 MG TAB PO SCH (08:52)
[2018-07-27] MEDS: FINASTERIDE 5 MG TAB PO SCH (08:53)
[2018-07-27] MEDS: hydroCHLOROthiazide 25 MG TAB PO SCH (08:53)
[2018-07-27] MEDS: ASPIRIN 325 MG ECTAB PO SCH (08:53)
[2018-07-27] MEDS: predniSONE 10 MG TABLET PO SCH (08:54)
[2018-07-27] MEDS: DOCUSATE SODIUM/SENNA 50/8.6MG TAB PO PRN (08:57)
[2018-07-27] MEDS: AMLODIPINE BESYLATE 5 MG TAB PO SCH (09:20)
[2018-07-27] MEDS: TAMSULOSIN HCL 0.4 MG CAP PO SCH (21:20)
[2018-07-27] MEDS: FAMOTIDINE 20 MG TAB PO SCH (21:20)
[2018-07-28] MEDS: IPRATROPIUM BROMIDE/ALBUTEROL respimat INH INH SCH ×4 (09:03→16:59)
[2018-07-28] MEDS: FLUTICASONE/SALMETEROL 250/50 (ADVAIR) 14 PUFF/1 INHALER INH SCH (09:03)
[2018-07-28] MEDS: LOSARTAN POTASSIUM 50 MG TAB PO SCH (09:04)
[2018-07-28] MEDS: hydroCHLOROthiazide 25 MG TAB PO SCH (09:05)
[2018-07-28] MEDS: AMLODIPINE BESYLATE 5 MG TAB PO SCH (09:05)
[2018-07-28] MEDS: ASPIRIN 325 MG ECTAB PO SCH (09:05)
[2018-07-28] MEDS: FINASTERIDE 5 MG TAB PO SCH (09:06)
[2018-07-28] MEDS: predniSONE 10 MG TABLET PO SCH (09:06)
[2018-07-28] MEDS: TAMSULOSIN HCL 0.4 MG CAP PO SCH (16:59)
--- NOTE | 2018-07-31 16:20 | Discharge Summary ---
Date of Service July 28, 2018 Admission HPI Per Admitting Provider Patient is a difficult historian he comes in with increased shortness of breath and accelerated hypertension possible hypertensive urgency. Patient did not take any of his medications today. Patient states she had a 3-week history of having no energy and feeling short of breath. He has occasional chest discomfort associated with it. Patient has atrial fibrillation by history in his chart however he does not recollect ever being told atrial fibrillation. Other than not being on an anticoagulant he is on diltiazem which may support this. Patient states he lives alone does not have any local help. He was feeling better in the ER after having BiPAP and nitro started Principal Diagnosis Delirium Discharge Exam The patient appeared thin and initially was uncapped Vital signs as documented. Head exam is unremarkable. normocephalic, atraumatic Neck is without jugular venous distension, thyromegaly, or lymphademopathy Lungs are clear, no wheezing. Cardiac exam reveals Rhythm is regular. First and second heart sounds normal. Abdominal exam reveals normal bowel sounds, no masses, soft nontender Patient is an amputation and prosthesis no lower extremity edema Neurologic exam is A&Ox3, globally weak but can move about the room with a wheelchair and his prosthesis when applied Discharge Data Allergies Allergy/AdvReac Type Severity Reaction Status Date / Time No Known Allergies Allergy Unverified 07/21/18 07:48 Consultations 07/21/18 09:32 ED Decision to Admit Stat 07/21/18 11:42 Consult Case Management - Discharge Planning Routine 07/24/18 13:28 Consult Case Management - Discharge Planning Routine Hospital Course (1) Delirium: Patient episode of hospital delirium 07/22-. It was associate with continued hypertension. His losartan has been increased on 07/22 and amlodipine at 07/27, hctz added to lorsartan and stopped scheduled clonidine due to recurrence of bradycardia. His delirium has resolved. (2) Acute respiratory distress: COPD exacerbation. Transitioning to metered-dose inhalers improved after adding Advair on 07/25 continuing prednisone with taper A chest x-ray from 07/24 is without infiltrate or concern for aspiration pneumonia Patient improved on Advair during hospital course. Will continue this as an outpatinet. (3) Diaphragmatic hernia: This was noted and apparently large. Dr. Almeida has been consulted no surgical intervention is planned until his respiratory status is improved. The patient will see Dr. Almeida as an outpatient patient has no complaints of eating or other symptomatology associated with any chest pain is not return (4) Left sided chest pain: Left-sided chest pain had recurred on 07/25 EKG without significant recurrence of acute injury seems to be sharp in nature and likely may be related to his hiatal hernia and is did follow administration of medication by mouth he has return of bradycardia seems to be sensitive to diltiazem and clonidine. These medications were stopped prior to discharge. In regards to his Hypertension, patient was discharged on Losartan, amlodipine, HCTZ (5) Chronic hyponatremia: Patient has had chronic hyponatremia which remains stable (6) DVT prophylaxis: heparin sc this will be held given his gross hematuria we will place him on SCDs hematuria has subsequently resolved (7) Hematuria: pt wishes to try to void witout martines, will still recommend urology follow up after discharge if able to remove martines. Patient was able to remove martines on day of discharge. Patient was able to void, no hematuria noted, however will have patient f/u with Urology as an outpatient. Total Time Total Time Spent Total Time Spent (In Minutes): 33 minutes Discharge Plan Discharge Items Patient Disposition: Home - Self-Care Reason For Visit: HYPERTENSIVE URGENCY Discharge Diagnosis: Hypertensive Urgency Discharge Goals: Decrease discomfort Activity: Resume your previous activity Non-emergency contact: Primary Care Provider Call non-emergency contact if: you have any medication questions Follow-up/Referrals: Cesar Colon MD [Surgeon] - 08/20/18 3:50 pm (Please, follow up at [facility] Urology Office with Dr. Cesar Colon on SaturdayAugust 20 at 3:50 pm. *This office is located at [address] [place] [address] in [facility] [place]. If you need to change this appointment, call the office at [phone].) Nicole Quesada MD [Primary Care Provider] - 08/01/18 11:30 am (Please, follow up at [facility] with Dr. Quesada on SaturdayAugust 01 at 11:30 am. *If you need to change this appointment, call the office at [phone].) Diet: Regular Addtl Provider Instructions: Start Advair tonight. Rinse mouth after each use. Followup with Urology as an outpatient. Prescriptions: New losartan 50 mg Tablet 50 mg PO QAM Qty: 30 RF: 0 amlodipine [Norvasc] 5 mg Tablet 10 mg PO QAM Qty: 30 RF: 0 tamsulosin 0.4 mg Capsule 0.4 mg PO HS Qty: 30 RF: 0 hydrochlorothiazide 25 mg Tablet 25 mg PO QAM Qty: 30 RF: 0 fluticasone-salmeterol [Advair Diskus] 250-50 mcg/dose Blister With Device 1 puff Inhalation BID Qty: 1 RF: 0 finasteride [Proscar] 5 mg Tablet 5 mg PO QAM Qty: 30 RF: 0 prednisone 10 mg tablet 10 mg PO DAILY Qty: 12 RF: 0 Continue aspirin 325 mg Tablet 325 mg PO DAILY RF: 0 sennosides-docusate sodium [Senokot-S] 8.6-50 mg Tablet 2 tab PO BID PRN (Reason: Constipation) RF: 0 famotidine [Pepcid] 20 mg tablet 20 mg PO HS RF: 0 nitroglycerin [Nitrostat] 0.4 mg Tablet, Sublingual 0.4 mg Sublingual UD PRN (Reason: Chest Pain) RF: 0 albuterol sulfate [Ventolin HFA] 90 mcg/actuation Hfa Aerosol Inhaler 1 - 2 puff INHALATION QID PRN (Reason: Shortness Of Breath Or Wheezing) RF: 0 Discontinued diltiazem HCl 360 mg capsule,extended release 24 hr 360 mg PO QAM RF: 0 losartan [Cozaar] 25 mg tablet 25 mg PO QAM RF: 0 Stand-Alone Forms: [facility] Discharge Orders: Discharge Order (Routine); Ordered 07/28/18 Ordered By: German Sanchez Admission Data Admit Date/Time: 07/21/18 10:16 Attending Provider: German Sanchez Admit Provider: David Escalanet Primary Care Provider: Nicole Quesada Other Providers: David Escalante Service: Medical Other Interventions: Discharge Summary Assessment (RN) Last Done: 07/28/18 16:49 DC Date/Time DO NOT enter until pt leaves facility: 07/28/18 17:42
== END 2018-07-28 17:42 | disposition home or self-care (01) | DRG 191 ==
LOC: ED 07:35 → SUATTDRO 10:16 → 2S 10:16 → 4W 07-24 13:07

== ENCOUNTER 2019-02-22 07:55 | Inpatient (IN) ==
[2019-02-22] MEDS ORDERED: LIDOCAINE 5% 1 PATCH TD STA (08:00)
[2019-02-22] MEDS ORDERED: ALBUTEROL 0.083% NEBU SOLN 3 ML VIAL NEB STA (08:00)
[2019-02-22] MEDS ORDERED: HYDROmorphone INJ 0.5 MG/0.5 ML SYR IV PRN ×2 (08:00→11:45)
--- NOTE | 2019-02-22 08:28 | XRay Report ---
XR chest 1V portable HISTORY: 83 years-old Male Chest Pain acute atypical chest pain COMPARISON: Chest radiograph 02/20/2019 TECHNIQUE: Portable AP view of the chest FINDINGS: Cardiac silhouette is enlarged, unchanged. Left hemidiaphragmatic elevation with mild gaseous distent ion of the splenic flexure just beneath the hemidiaphragm redemonstrated. There is no pneumothorax, p leural effusion, focal airspace consolidation or overt pulmonary edema. Mild subsegmental left basila r atelectasis/scarring. Degenerative changes of the shoulders and spine. IMPRESSION: 1. Cardiomegaly without acute process. 2. Chronic left hemidiaphragmatic elevation. The above report was generated using voice recognition software. It may contain grammatical, syntax o r spelling errors. Electronically signed by: Sandro Art M.D. 02/22/2019 8:27 AM
[2019-02-22 08:39] LABS: Basophils # (auto) 0.02 K/uL (0-0.2); Basophils % (auto) 0.2 %; Eosinophils # (auto) 0.03 K/uL (0-0.5); Eosinophils % (auto) 0.3 %; Hematocrit (blood only) 26.5 % (42-52); Hemoglobin 8.9 g/dL (14.0-18.0); Immature Granulocytes # (auto) 0.02 K/uL (0.00-0.02); Immature Granulocytes % (auto) 0.2 %; Lymphocytes # (auto) 0.95 K/uL (1.2-3.4); Lymphocytes % (auto) 10.3 %; Mean Corpuscular Hemoglobin 27.1 pg (25-34); Mean Corpuscular Hgb Conc 33.6 g/dL (32-36); Mean Corpuscular Volume 80.5 fL (80-100); Mean Platelet Volume 8.5 fL (7.4-10.4); Monocytes # (auto) 0.99 K/uL (0.11-0.59); Monocytes % (auto) 10.7 %; Neutrophils # (auto) 7.22 K/uL (1.4-6.5); Neutrophils % (auto) 78.3 %; Platelet Count 304 K/uL (130-400); RDW Coefficient of Variation 14.2 % (11.5-14.5); RDW Standard Deviation 41.9 fL (36.4-46.3); Red Blood Count 3.29 M/uL (4.7-6.1); White Blood Count 9.23 K/uL (4.8-10.8)
[2019-02-22 08:52] LABS: Alanine Aminotransferase 17 U/L (12-78); Albumin Level 3.5 gm/dl (3.4-5.0); Aspartate Aminotransferase 41 U/L (15-37); BUN Creatinine Ratio 23.5 (10-20); Blood Urea Nitrogen 41 mg/dl (7-18); Calcium 8.7 mg/dl (8.5-10.1); Carbon Dioxide 22 mmol/L (21-32); Chloride 102 mmol/L (98-107); Est GFR (African American) 41.4; Est GFR (Non-African American) 35.7; Glucose 104 mg/dl (70-99); Lipase 60 U/L (73-393); Potassium 3.7 mmol/L (3.5-5.1); Sodium 133 mmol/L (136-145)
[2019-02-22] MEDS ORDERED: SODIUM CHLORIDE 0.9% 1000ML 1,000 ML IV ONE ×2 (08:56→09:54)
[2019-02-22 09:07] LABS: Albumin Globulin Ratio 0.9 (0.9-2); Alkaline Phosphatase 85 U/L (45-117); Bilirubin,Total 0.6 mg/dl (0.2-1); Creatine Kinase 1161 U/L (39-308); Creatine Kinase MB 12.1 ng/ml (0.5-3.6); Globulin 3.8 gm/dl (2.5-4.0); Total Protein 7.3 gm/dl (6.4-8.2); Troponin I < 0.015 ng/ml (0-0.045)
[2019-02-22] MEDS ORDERED: IOVERSOL 100ml IV PRN (09:25)
--- NOTE | 2019-02-22 09:57 | CT Scan Report ---
ABDOMEN AND PELVIS CT WITH IV CONTRAST CT DOSE: 266.23 mGy.cm HISTORY: Acute anemia with abdominal trauma. Pt c/o loss of HGB, trauma TECHNIQUE: Multiaxial CT images of the abdomen and pelvis were performed following the use of intrave nous contrast. A dose lowering technique was utilized adhering to the principles of ALARA. COMPARISON STUDY: CT abdomen and pelvis 07/25/2014 FINDINGS: Chronic left hemidiaphragmatic elevation with subsegmental left basilar atelectasis/scarring. Respira tory motion limits evaluation of the lung bases. Study is mildly motion degraded. There is no pneumat osis or pneumoperitoneum. Marked cardiomegaly with coronary arterial calcifications. No pericardial e ffusion. Mild gallbladder distention containing hyperattenuating intraluminal material suggestive of gallbladder sludge and/or vicarious excretion of IV contrast. No gallbladder wall thickening or cata lithiasis identified. No biliary ductal dilation. Hypodense 3 mm lesion of the left hepatic lobe is t oo small to characterize however suggests probable cyst. Liver is otherwise unremarkable. Spleen is u nremarkable with a few adjacent splenule is present. Pancreas and adrenal glands are unremarkable. Ki dneys are unremarkable. Probable cyst of the inferior pole left kidney, 4 mm. No renal or ureteral ca lculi or obstructive uropathy. Ureters are unremarkable. Marked urinary bladder distention measures u p to 15.5 cm in length. Thickened urinary bladder isaac with trabeculation multiple diverticula noted . Prostamegaly. Severe mixed plaque about the abdominal aorta and iliac arteries without aneurysm. No nspecific mildly prominent bilateral inguinal chain lymph nodes. No pathologically enlarged nodes by CT size criteria. Small hiatal hernia with mild distal esophageal wall thickening. No bowel obstruction or bowel wall t hickening. Mild gaseous distention of the colon with mild to moderate fecal retention. Nonvisualizati on of the appendix. No secondary signs to suggest acute appendicitis. No ascites or mesenteric inflam mation. There is asymmetric mild enlargement of the left sartorius muscle with mild surrounding stran ding. Partially imaged increased attenuation, heterogeneity and enlargement about the left proximal q uadriceps noted on image 436 of series 3. No retroperitoneal hematoma. Convex right curvature of the lumbar spine. Degenerative changes of the spine, pelvis and hips. No acute fracture identified. IMPRESSION: 1. Partially imaged heterogeneity with increased attenuation about the left proximal quadriceps muscu lature is suggestive of intramuscular hematoma. This could be correlated with clinical exam and focus ed ultrasound. 2. No retroperitoneal hematoma. 3. No bowel obstruction or bowel wall thickening. 4. Prostamegaly with chronic bladder outlet obstruction. 5. Additional findings as above. Electronically signed by: Sandro Art M.D. 02/22/2019 9:55 AM
--- NOTE | 2019-02-22 10:52 | History & Physical Report ---
Date of Service February 22, 2019 Assessment & Plan (1) Rhabdomyolysis: -Admit to med surg w/ tele - CK elevated at 1161 -Has received 2 L of fluid so far in the ER, continue NSS at 125 mL/h -Holding ARB, HCTZ -Follow am ck level -PT/OT consults (2) TREY (acute kidney injury): - Holding ARB, HCTZ and other nephrotoxins - Continue fluids as above - Follow am PRP (3) Left rib fracture: - Imaging reviewed from 02/20/2019-showing 6, 7, 8 left rib fractures - Pain control with lidocaine patch, Dilaudid IV as needed, oxycodone p.o. as needed, will place on scheduled Tylenol - Bowel regimen ordered as pt notes has not had a BM in past 2 days (4) Chronic anemia: - Acute drop on chronic - Hgb is decreased at 8.9 today, has dropped from 10.7 where was initially check ed on 02/19/19 during first ER visit. Baseline appears to be 11-12. No need for blood transfusion currently. - CT imaging reviewed left proximal quadricieps musculature which has new intramuscular hematoma. Likely source of acute drop. - Heme negative by ER physician check. No complaints of hematuria. - follow cbc with am labs (5) Atrial fibrillation: - Hx of such, paroxysmal - Pt noted to have this back in 2010 where he was seen by Dr. Fernando - he is not on any blood thinning agents, possible due to falls and gait dysfunction from the left leg prosthetic. But he also appears to be a very noncompliant pt with medication from previous providers notes. Will need close follow up upon discharge. - Pt noted to be bradycardic with HR in the 50s on exam (6) COPD (chronic obstructive pulmonary disease): - Continue advair, duonebs qid prn - Smoking cessation encouraged - pt denies need for nicotine patch (7) GERD without esophagitis: - Continue pepcid 20 mg HS (8) Hyponatremia: - Appears to be chronic, follow am prp - 133 on admission, this appears to be around the patient baseline (9) DVT prophylaxis: - rimma on RLE, heparin subq Disposition: From home, lives with son, likely to remain in the hospital for 1-2 days History of Present Illness Primary Care Provider: Nicole Quesada MD This is an 83-year-old male with past medical history of HTN, atrial fibrillation, COPD, history of chronic hyponatremia and hematuria, 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 Patient initially presented on 02/19/2019 to the ER with complaint of falling from his motorized scooter, stating that it happened several days prior to his visit there, documented that he fell off his scooter twice and that the scooter possibly landed on top of his left chest. This is a new motorized scooter so he was a slightly unfamiliar with the controls. He was found to have had injury to the left leg and 3 left-sided rib fractures. He represented yesterday on 02/20 as his pain was uncontrolled and although his son was given a prescription to have it filled, the son did not return to the house before the ambulance arrived due to the patient calling because his pain was so great. Patient comes back today again because his pain is unable to be controlled. He was found to be in TREY, with a CK elevation greater than 1000, and in mild rhabdomyolysis. His hemoglobin is decreased at 8.9, which is down from his baseline of 10. Allergies Allergy/AdvReac Type Severity Reaction Status Date / Time No Known Drug Allergies Allergy Verified 02/22/19 09:49 Home Medications Home Medications Medication Instructions Recorded Confirmed Type aspirin 325 mg PO DAILY 06/12/18 02/22/19 History famotidine [Pepcid] 20 mg PO HS 06/12/18 02/22/19 History nitroglycerin [Nitrostat] 0.4 mg SUBLINGUAL UD PRN 06/12/18 02/22/19 History sennosides-docusate sodium 2 tab PO BID PRN 06/12/18 02/22/19 History [Senokot-S] albuterol sulfate [Ventolin HFA] 1 - 2 puff INHALATION QID PRN 07/20/18 02/22/19 History fluticasone propion-salmeterol 1 puff INHALATION BID #1 ea 07/28/18 02/22/19 Rx [Advair Diskus] hydrochlorothiazide 25 mg PO QAM #30 tab 07/28/18 02/22/19 Rx losartan 50 mg PO QAM #30 tab 07/28/18 02/22/19 Rx amlodipine 10 mg tablet 10 mg PO DAILY #30 tab 12/05/18 02/22/19 Rx tamsulosin 0.4 mg capsule 0.4 mg PO HS #30 cap 12/05/18 02/22/19 Rx hydrocodone-acetaminophen [Creola] 1 tab PO Q6H PRN #10 tab 02/19/19 02/22/19 Rx lidocaine [Lidoderm] 1 patch TOP DAILY #30 ea 02/19/19 02/22/19 Rx Past Med/Surg History Medical History TREY (acute kidney injury) Rhabdomyolysis Fall from motorized mobility scooter, initial encounter (Acute) Left rib fracture (Acute) Benign essential hypertension (Chronic) COPD (chronic obstructive pulmonary disease) (Chronic) GERD without esophagitis (Acute) Macular degeneration (Acute) Problem with literacy (Acute) Exposure to chemical inhalation (Acute) Hematuria (Acute) Generalized weakness (Acute) Hypokalemia (Acute) Hypomagnesemia (Acute) Hypokalemia (Chronic) Hypomagnesemia (Chronic) Chronic hyponatremia (Inactive) Diaphragmatic hernia (Inactive) Left sided chest pain (Inactive) Surgical History Lower limb amputation status (Chronic) Family History Other Family history non-contributory Social History Preferred Language: Mongolian Communication Ability: Effective Bottle Cleaner Required: Yes Beliefs That Will Affect Care: None marital status: / Current Living Situation: Family Current Living Situation Comment: son lives with him current occupational status: retired Other Information That Helps Us Care for You: No Feels Safe at Home: Yes Safety Concerns: Feels Safe At This Time Smoking Status: Current every day smoker Tobacco Type: pipe ; Second Hand Exposure: Yes ; Tobacco Cessation Education Requested by Patient: No Hx Alcohol Use: Yes Alcohol type: beer and hard liquor Hx Substance Use: No Review of Systems Review of Systems: Constitutional: No fever, sweats or chills Eyes: No diplopia, no worsening or blurred vision ENT: normal hearing, no trouble swallowing Respiratory: No cough, sputum, dyspnea at rest or on exertion, + pain with deep inspiration Cardiovascular: No chest pain, tightness or palpitations Abdomen: No pain, nausea, vomiting, diarrhea or constipation Musculoskeletal: No joint pain, calf pain, swelling Neurologic: No weakness, numbness/tingling, or balance problems, + uses motorized scooter for ambulation assistance Psychiatric: No anxiety or depression Skin: No rash or itch Physical Exam Physical Exam: General: awake, alert, no apparent distress, + thin, + smells of smoke Head: Normocephalic, atraumatic ENT: PERRL, EOMI, no pharyngeal exudate, mucous membranes moist Chest: Clear to auscultation, on room air, + barrel chested, ecchymotic area over the left chest wall, Lidoderm patch in place, pain with deep inspiration, faint crackles bibasilarly. Cardiac: + Bradycardic HR in 50s, no murmur, no JVD, normal peripheral pulses, good capillary refill Abdominal: NABS x 4 quadrants, soft, nondistended, nontender to palpation, no rebound, guarding or tenderness Extremities: + Left mid femur prosthetic, otherwise normal inspection, no per ipheral edema or erythema, calfs nontender to palpation Psych: Normal mood and affect Neuro: AAO x 3, strength intact bilaterally and related 5/5, no motor deficits, speech is clear, no peripheral sensory deficits Skin: no rash or erythema Results & Data Vital Signs (Past 12 Hours) Vital Signs Temp Pulse Pulse Resp BP BP Pulse Ox 02/22/19 09:39 53 L 18 105/42 L 96 02/22/19 08:34 42 L 20 111/50 L 99 02/22/19 08:23 45 L 16 98 02/22/19 08:08 99 02/22/19 08:02 36.5 C 69 18 102/58 L 98 Diagnostic Findings XR chest 1V portable HISTORY: 83 years-old Male Chest Pain acute atypical chest pain COMPARISON: Chest radiograph 02/20/2019 TECHNIQUE: Portable AP view of the chest FINDINGS: Cardiac silhouette is enlarged, unchanged. Left hemidiaphragmatic elevation with mild gaseous distention of the splenic flexure just beneath the hemidiaphragm redemonstrated. There is no pneumothorax, pleural effusion, focal airspace consolidation or overt pulmonary edema. Mild subsegmental left basilar atelecta sis/scarring. Degenerative changes of the shoulders and spine. IMPRESSION: 1. Cardiomegaly without acute process. 2. Chronic left hemidiaphragmatic elevation. The above report was generated using voice recognition software. It may contain grammatical, syntax or spelling errors. ABDOMEN AND PELVIS CT WITH IV CONTRAST CT DOSE: 266.23 mGy.cm HISTORY: Acute anemia with abdominal trauma. Pt c/o loss of HGB, trauma TECHNIQUE: Multiaxial CT images of the abdomen and pelvis were performed following the use of intravenous contrast. A dose lowering technique was utilized adhering to the principles of ALARA. COMPARISON STUDY: CT abdomen and pelvis 07/25/2014 FINDINGS: Chronic left hemidiaphragmatic elevation with subsegmental left basilar atelectasis/scarring. Respiratory motion limits evaluation of the lung bases. Study is mildly motion degraded. There is no pneumatosis or pneumoperitoneum. Marked cardiomegaly with coronary arterial calcifications. No pericardial effusion. Mild gallbladder distention containing hyperattenuating intraluminal material suggestive of gallbladder sludge and/or vicarious excretion of IV contrast. No gallbladder wall thickening or cholelithiasis identified. No biliary ductal dilation. Hypodense 3 mm lesion of the left hepatic lobe is too small to characterize however suggests probable cyst. Liver is otherwise unremarkable. Spleen is unremarkable with a few adjacent splenule is present. Pancreas and adrenal glands are unremarkable. Kidneys are unremarkable. Probable cyst of the inferior pole left kidney, 4 mm. No renal or ureteral calculi or ob structive uropathy. Ureters are unremarkable. Marked urinary bladder distention measures up to 15.5 cm in length. Thickened urinary bladder isaac with trabeculation multiple diverticula noted. Prostamegaly. Severe mixed plaque about the abdominal aorta and iliac arteries without aneurysm. Nonspecific mildly prominent bilateral inguinal chain lymph nodes. No pathologically enlarged nodes by CT size criteria. Small hiatal hernia with mild distal esophageal wall thickening. No bowel obstruction or bowel wall thickening. Mild gaseous distention of the colon with mild to moderate fecal retention. Nonvisualization of the appendix. No secondary signs to suggest acute appendicitis. No ascites or mesenteric inflammation. There is asymmetric mild enlargement of the left sartorius muscle with mild s urrounding stranding. Partially imaged increased attenuation, heterogeneity and enlargement about the left proximal quadriceps noted on image 436 of series 3. No retroperitoneal hematoma. Convex right curvature of the lumbar spine. Degenerative changes of the spine, pelvis and hips. No acute fracture identified. IMPRESSION: 1. Partially imaged heterogeneity with increased attenuation about the left proximal quadriceps musculature is suggestive of intramuscular hematoma. This could be correlated with clinical exam and focused ultrasound. 2. No retroperitoneal hematoma. 3. No bowel obstruction or bowel wall thickening. 4. Prostamegaly with chronic bladder outlet obstruction. 5. Additional findings as above. ECG Additional Comments: 22-FEB-2019 08:25:23 [facility]-EDSTAT ROUTINE RETRIEVAL Undetermined rhythm (sinus bradycardic on my exam) Nonspecific ST and T wave abnormality Abnormal ECG When compared with ECG of 20-FEB-2019 11:49, Current undetermined rhythm precludes rhythm comparison, needs review Inverted T waves have replaced nonspecific T wave abnormality in Lateral leads 25mm/s 10mm/mV 150Hz 9.0.9 12SL 241 LEWIS: 13 Referred by: REFERRED SELF Unconfirmed Vent. rate 41 BPM VT interval * ms QRS duration 102 ms QT/QTc 494/407 ms P-R-T axes * 17 7 Code Status & VTE Plan Code Status Full code -discussed with the patient at bedside Supervising Physician Co-Signing Physician Notes I supervised Nanda Denton PA-C on this patient's care. I examined the patient today independently of her. I discussed the plan of care with her with the plan being as written in her note except for any following changes/exceptions: None. 83-year-old male with a history of high blood pressure and COPD who presents with rhabdomyolysis and TREY after falling off his lawn tractor several times several days ago. The patient was at the [facility] and I guess was using his lawn tractor (not a great historian) and fell off several times while trying to drive it. It is unclear why he did not present immediately after his falls. At present he has no complaints other than some left-sided rib pain. We will treat with IV fluids, pain control, and continue his home meds. PG Care Time/CCT Total # of Minutes Spent Total Time Spent with Patient: Total time spent is greater than 50% in coordination of care (as documented) at patient's floor/unit and/or counseling patient: (1) Left rib fracture Encounter type: initial encounter Fracture type: closed Rib fracture type: multiple ribs Qualified Code(s): S22.42XA - Multiple fractures of ribs, left side, initial encounter for closed fracture
[2019-02-22] MEDS ORDERED: HYDROCODONE/ACETAMOPHEN 5/325MG TAB PO PRN ×2 (11:45)
[2019-02-22] MEDS ORDERED: SENNA 8.6 MG TAB PO PRN (11:45)
[2019-02-22] MEDS ORDERED: BISACODYL 5 MG TABEC PO PRN (11:45)
[2019-02-22] MEDS ORDERED: ALBUTEROL HFA 8 GM INHALER INH PRN (11:45)
[2019-02-22] MEDS ORDERED: POLYETHYLENE (MIRALAX) 17 GM PACK PO PRN (11:45)
[2019-02-22] MEDS ORDERED: DOCUSATE SODIUM/SENNA 50/8.6MG TAB PO PRN (11:45)
[2019-02-22] MEDS ORDERED: ACETAMINOPHEN 325 MG TAB PO PRN (11:45)
[2019-02-22] MEDS ORDERED: ONDANSETRON INJ 2 MG/ML 2 ML VIAL IV PRN (11:45)
[2019-02-22] MEDS: SODIUM CHLORIDE 0.9% 1000ML 1,000 ML IV SCH ×2 (12:07→20:29)
[2019-02-22] MEDS: ACETAMINOPHEN 500 MG TAB PO SCH ×2 (14:05→20:32)
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
[2019-02-22] MEDS: FLUTICASONE/SALMETEROL 250/50 (ADVAIR) 14 PUFF/1 INHALER INH SCH (20:29)
[2019-02-22] MEDS: FAMOTIDINE 20 MG TAB PO SCH (20:31)
[2019-02-23] MEDS: ACETAMINOPHEN 500 MG TAB PO SCH ×3 (05:15→22:33)
[2019-02-23] MEDS: SODIUM CHLORIDE 0.9% 1000ML 1,000 ML IV SCH (06:13)
[2019-02-23 07:06] LABS: Hematocrit (blood only) 23.3 % (42-52); Hemoglobin 7.9 g/dL (14.0-18.0); Mean Corpuscular Hemoglobin 27.5 pg (25-34); Mean Corpuscular Hgb Conc 33.9 g/dL (32-36); Mean Corpuscular Volume 81.2 fL (80-100); Mean Platelet Volume 7.9 fL (7.4-10.4); Platelet Count 289 K/uL (130-400); RDW Coefficient of Variation 14.6 % (11.5-14.5); RDW Standard Deviation 43.4 fL (36.4-46.3); Red Blood Count 2.87 M/uL (4.7-6.1); White Blood Count 5.72 K/uL (4.8-10.8)
[2019-02-23 07:40] LABS: Albumin Level 3.1 gm/dl (3.4-5.0); BUN Creatinine Ratio 28.9 (10-20); Calcium 8.1 mg/dl (8.5-10.1); Creatinine Clr Calc Pharmacy 45.8 ml/min; Est GFR (Non-African American) 66.4
[2019-02-23] MEDS: FLUTICASONE/SALMETEROL 250/50 (ADVAIR) 14 PUFF/1 INHALER INH SCH ×2 (07:51→22:24)
[2019-02-23] MEDS: LIDOCAINE 5% 1 PATCH TD SCH (07:51)
[2019-02-23 07:54] LABS: Bilirubin,Total 0.8 mg/dl (0.2-1); Globulin 3.2 gm/dl (2.5-4.0); Total Protein 6.3 gm/dl (6.4-8.2)
[2019-02-23] MEDS ORDERED: ASPIRIN 325 MG ECTAB PO SCH (09:00)
[2019-02-23] MEDS: OXYCODONE HCL IR 5 MG TAB (IMMEDIATE RELEASE) PO PRN ×3 (09:49→23:55)
--- NOTE | 2019-02-23 10:34 | CT Scan Report ---
CT hip LT wo con HISTORY: 83 years-old Male left hip pain s/p fall acute left hip and left leg pain status post fall COMPARISON: CT abdomen and pelvis 02/22/2019, radiographs of the left femur 02/20/2019 TECHNIQUE: Multiple axial CT images of the left hip were obtained without the use of IV contrast. A d ose lowering technique was used consistent with the principals of CHARY. FINDINGS: Prostamegaly with urinary bladder wall thickening, trabeculation and bladder diverticula are noted wi th distention and retained IV contrast. Nonspecific prominent left inguinal chain lymph nodes measure up to 9 mm. Partially imaged moderate subcutaneous and deep tissue edema about the proximal anterome dial left thigh with intramuscular hematoma of the vastus intermedius measuring up to 4.5 x 4.5 x 8.7 cm. The craniocaudal extent is only partially imaged. Hematoma likely extends into the proximal aspe ct of the vastus lateralis as well. Bone windows demonstrate no acute fracture or dislocation of the left hip or pelvis. Moderate osteoar thritis of the left femoral acetabular joint. No avascular necrosis or opaque foreign body. IMPRESSION: 1. No acute fracture or dislocation. 2. Large intramuscular hematoma of the vastus intermedius and vastus lateralis measures up to 8.7 cm in length. 3. Prostamegaly with evidence of chronic bladder outlet obstruction redemonstrated. The above report was generated using voice recognition software. It may contain grammatical, syntax o r spelling errors. Electronically signed by: Sandro Art M.D. 02/23/2019 10:33 AM
[2019-02-23 12:14] LABS: Hematocrit (blood only) 24.3 % (42-52); Hemoglobin 8.3 g/dL (14.0-18.0); Mean Corpuscular Hemoglobin 27.9 pg (25-34); Mean Corpuscular Hgb Conc 34.2 g/dL (32-36); Mean Corpuscular Volume 81.5 fL (80-100); Platelet Count 248 K/uL (130-400); RDW Coefficient of Variation 14.7 % (11.5-14.5); RDW Standard Deviation 43.3 fL (36.4-46.3); Red Blood Count 2.98 M/uL (4.7-6.1); White Blood Count 6.13 K/uL (4.8-10.8)
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
[2019-02-23] MEDS ORDERED: TAMSULOSIN HCL 0.4 MG CAP PO SCH (21:00)
[2019-02-23] MEDS: FAMOTIDINE 20 MG TAB PO SCH (22:26)
[2019-02-23] MEDS: DOCUSATE SODIUM/SENNA 50/8.6MG TAB PO SCH (22:27)
[2019-02-24] MEDS: ACETAMINOPHEN 500 MG TAB PO SCH ×2 (06:11→13:47)
[2019-02-24] MEDS: DOCUSATE SODIUM/SENNA 50/8.6MG TAB PO SCH (08:09)
[2019-02-24] MEDS: FLUTICASONE/SALMETEROL 250/50 (ADVAIR) 14 PUFF/1 INHALER INH SCH (08:09)
[2019-02-24] MEDS: LIDOCAINE 5% 1 PATCH TD SCH (08:10)
[2019-02-24 08:17] LABS: Hematocrit (blood only) 24.3 % (42-52); Hemoglobin 8.2 g/dL (14.0-18.0); Mean Corpuscular Hemoglobin 27.7 pg (25-34); Mean Corpuscular Hgb Conc 33.7 g/dL (32-36); Mean Corpuscular Volume 82.1 fL (80-100); Mean Platelet Volume 8.1 fL (7.4-10.4); Platelet Count 276 K/uL (130-400); RDW Standard Deviation 44.5 fL (36.4-46.3); Red Blood Count 2.96 M/uL (4.7-6.1); White Blood Count 7.96 K/uL (4.8-10.8)
[2019-02-24 08:55] LABS: Albumin Level 3.1 gm/dl (3.4-5.0); BUN Creatinine Ratio 23.2 (10-20); Calcium 8.3 mg/dl (8.5-10.1); Creatinine Clr Calc Pharmacy 46.8 ml/min; Est GFR (African American) 80.7; Est GFR (Non-African American) 69.6; Potassium 3.9 mmol/L (3.5-5.1)
[2019-02-24] MEDS ORDERED: FINASTERIDE 5 MG TAB PO SCH (09:00)
[2019-02-24] MEDS ORDERED: FERROUS SULFATE 325 MG TAB PO SCH (09:00)
[2019-02-24 09:09] LABS: Globulin 3.2 gm/dl (2.5-4.0); Total Protein 6.3 gm/dl (6.4-8.2)
--- NOTE | 2019-02-24 10:13 | Orthopedic Progress Note ---
Date of Service February 24, 2019 Assessment & Plan (1) Hematoma: 83 yo male with improved left hip pain/hematoma 1. Med management 2. RICE, conservative care left hip, activity as tolerated 3. Ortho to sign off, please notify if change in pt's condition Subjective Pt resting in bed, denies pain about left hip, has been transferring to toilet without pain Physical Exam Physical Exam: Hip not painful to gentle PROM, mildly tender over lateral hip Results & Data Vital Signs (Past 12 Hours) Vital Signs Temp Pulse Pulse Resp BP Pulse Ox 02/24/19 07:37 36.5 C 84 18 136/61 96 02/24/19 07:34 84 02/24/19 04:00 36.6 C 96 H 22 132/62 97 02/23/19 22:59 36.1 C L 88 140/57 L 95
[2019-02-24] MEDS ORDERED: SODIUM CHLORIDE 0.9% 500 ML IV SCH (13:15)
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
== END 2019-02-24 16:41 | DRG 184 ==
LOC: ED 07:55 → SUATTDRO 10:24 → 3W 10:24 → 2N 13:41

== ENCOUNTER 2021-04-05 08:38 | Observation (INO) ==
[2021-04-05] MEDS ORDERED: SODIUM CHLORIDE 0.9% 500 ML IV SCH (09:00)
--- NOTE | 2021-04-05 09:05 | Emergency Department Note ---
History of Present Illness General Chief complaint: Urinary Symptoms Stated complaint: CONSTIPATION & URINARY ISSUES Time Seen by Provider: 04/05/21 08:48 Source: patient Mode of arrival: ambulatory Limitations: no limitations History of Present Illness This patient is a 85-year-old male who comes in after having urinary frequency. He was seen a couple days ago with constipation and urinary retention. He says the constipation is gotten better he had a normal bowel and last night without blood. He said frequency for about a week he is not been eating. EMS brought him in and were very concerned about the living conditions he is in. He has had no blood in his urine. No fever. He has lost some weight and tells me he just eats when he wants to eat. He had no fall. He felt a little short of breath of the last 3 to 4 weeks. No chest pain or cough. He has not had the Covid vaccine he feels generally weak but nonfocal. No rash no abdominal pain. 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 Home Medications Medication Instructions Recorded Confirmed Type acetaminophen 500 mg tablet 1,000 mg PO Q8H #30 tab 02/24/19 04/05/21 Rx (Tylenol Extra Strength) aspirin 325 mg tablet,delayed 325 mg PO QAM 07/23/19 04/05/21 History release (Ecotrin) hydrochlorothiazide 25 mg tablet 25 mg PO QAM #30 tab 12/27/20 04/05/21 Rx amlodipine 10 mg tablet (Norvasc) 10 mg PO QAM 04/01/21 04/05/21 History bisacodyl 5 mg tablet 5 mg PO BID PRN #20 tab 04/01/21 04/05/21 Rx docusate sodium 50 mg capsule 50 mg PO BID PRN #60 cap 04/01/21 04/05/21 Rx (Colace Clear) famotidine 20 mg tablet (Pepcid) 20 mg PO HS 04/01/21 04/05/21 History finasteride 5 mg tablet (Proscar) 5 mg PO QAM 04/01/21 04/05/21 History losartan 50 mg tablet (Cozaar) 50 mg PO DAILY 04/01/21 04/05/21 History melatonin 5 mg capsule 5 mg PO HS 04/01/21 04/05/21 History sennosides 8.6 mg-docusate sodium 2 tab PO DAILY PRN 04/01/21 04/05/21 History 50 mg tablet (Senokot-S) tamsulosin 0.4 mg capsule (Flomax) 0.4 mg PO QAM 04/01/21 04/05/21 History Allergies Allergy/AdvReac Type Severity Reaction Status Date / Time No Known Drug Allergies Allergy Verified 04/05/21 10:15 Past Med/Surg History Medical History (Updated 04/05/21 @ 15:14 by Taiwo Burton MD) Benign essential hypertension Chronic hyponatremia COPD (chronic obstructive pulmonary disease) Diaphragmatic hernia Fall from motorized mobility scooter, initial encounter GERD without esophagitis Hypokalemia Hypomagnesemia Left rib fracture Left sided chest pain Macular degeneration Problem with literacy Rhabdomyolysis Surgical History Lower limb amputation status Family History Other Family history non-contributory Denies family history of Ovarian cancer Prostate cancer Myocardial infarction Breast cancer Colorectal cancer Social History Smoking Status: Unknown if ever smoked Second Hand Exposure: Yes; Hx Alcohol Use: Yes Alcohol type: beer and hard liquor Hx Substance Use: No Preferred Language: Ukrainian Communication Ability: Effective Dress Draper Required: Yes Beliefs That Will Affect Care: None marital status: / Current Living Situation: Family Current Living Situation Comment: son lives with him current occupational status: retired Feels Safe at Home: Yes Dental Care, Regularly: No Seatbelt Use: always Sunscreen Use: No Assistive Devices: Prosthesis Review of Systems A total of 10 systems reviewed and were otherwise negative Physical Exam Vital Signs Vital Signs - 24 hr 04/05/21 08:49 04/05/21 08:56 04/05/21 09:44 Temperature 37.5 C 37.5 C Temperature Source Oral Oral Pulse Rate 62 64 Pulse Rate [Apical] 75 Pulse Rhythm Regular Irregular Pulse Rhythm [Apical] Regular Pulse Strength Normal Pulse Strength [Apical] Normal Respiratory Rate 22 22 20 Respiratory Effort / Characteristics Non-Labored Spontaneous Non-Labored Spontaneous Respiratory Depth Normal Normal Respiratory Pattern Blood Pressure 167/58 H Blood Pressure [Right Arm] 167/58 H Blood Pressure Mean 94 Blood Pressure Mean [Right Arm] 94 Blood Pressure Position Semi-fowlers Blood Pressure Position [Right Arm] Semi-fowlers Pulse Oximetry 99 99 97 Oxygen Delivery Method Room Air Room Air Room Air Sepsis Recent Fever Within 48 Hours No Sepsis New/Unexplained Change in Mental Status No Sepsis Action Taken by Nursing No Action Required 04/05/21 10:56 04/05/21 13:54 04/05/21 15:00 Temperature Temperature Source Pulse Rate Pulse Rate [Apical] 66 83 61 Pulse Rhythm Pulse Rhythm [Apical] Regular Regular Pulse Strength Pulse Strength [Apical] Normal Normal Respiratory Rate 20 18 18 Respiratory Effort / Characteristics Non-Labored Spontaneous Non-Labored Spontaneous Non-Labored Spontaneous Respiratory Depth Normal Normal Normal Respiratory Pattern Regular Regular Blood Pressure Blood Pressure [Right Arm] 165/77 H 165/77 H 143/72 H Blood Pressure Mean Blood Pressure Mean [Right Arm] 106 106 95 Blood Pressure Position Blood Pressure Position [Right Arm] Semi-fowlers Semi-fowlers Semi-fowlers Pulse Oximetry 99 96 99 Oxygen Delivery Method Room Air Room Air Room Air Sepsis Recent Fever Within 48 Hours Sepsis New/Unexplained Change in Mental Status Sepsis Action Taken by Nursing General: Well developed well nourished somewhat disheveled older male who appears in no acute distress, breathing comfortably on room air. Normal speech HEENT: Normal cephalic atraumatic. Pupils are equal round and reactive to light. Extraocular movements are intact. Oropharynx is pink with moist mucous membranes. No swelling of the mouth lips or tongue. Neck: Supple with a midline trachea. No meningeal signs or stiffness, no JVD or bruits. No Stridor. Chest: Clear to auscultation bilaterally. No wheezes or rhonchi. No increased work of breathing. Heart: Irregularly irregular rate and rhythm without murmurs or gallops. Abdomen: Soft nontender, nondistended without rebound guarding or rigidity. Extremities: No cyanosis clubbing or edema. No calf tenderness. He has an artificial right lower extremity secondary to old traumatic injury Spine/Back. Non tender to palpation. No CVA tenderness Skin: Good turgor without rashes. Neurologic exam: Cranial nerves two through 12 are intact. Motor and sensation are intact and symmetrical throughout with the exception of artificial right lower extremity. Course Administered Medications Discontinued Medications Sodium Chloride (Nss) 500 mls @ 999 mls/hr IV .Q31M KAREN Stop: 04/05/21 09:30 Last Infusion: 04/05/21 10:55 Dose: 0 mls/hr Documented by: [id number] Admin: 04/05/21 10:03 Dose: 999 mls/hr Documented by: [id number] Ceftriaxone Sodium (Rocephin) 2,000 mg in 70 mls @ 140 mls/hr IV NOW STA Stop: 04/05/21 12:31 Last Infusion: 04/05/21 14:59 Dose: 0 mls/hr Documented by: [id number] Admin: 04/05/21 13:21 Dose: 140 mls/hr Documented by: [id number] Medical Decision Making Differential Diagnosis Urinary retention, UTI, cauda equina/spinal process, intra-abdominal process, kidney stone, Covid, electrolyte or metabolic abnormality, infection/sepsis, inability to care for self, weakness Medical Records Attestation: I reviewed the patient's medical records. Home Medications Current Medication List: was personally reviewed by me Laboratory Data Attestation: I reviewed the patient's lab results. Result diagrams: 04/05/21 09:55 04/05/21 09:55 Lab Results 04/05/21 04/05/21 04/05/21 Range/Units 09:55 09:55 09:55 WBC 12.62 H (4.8-10.8) K/uL RBC 3.97 L (4.7-6.1) M/uL Hgb 11.1 L (14.0-18.0) g/dL Hct 34.2 L (42-52) % MCV 86.1 (80-100) fL MCH 28.0 (25-34) pg MCHC 32.5 (32-36) g/dL RDW Std Deviation 46.2 (36.4-46.3) fL RDW Coeff of Casimiro 14.6 H (11.5-14.5) % Plt Count 316 (130-400) K/uL MPV 8.8 (7.4-10.4) fL Immature Gran % (Auto) 0.2 % Neut % (Auto) 85.3 % Lymph % (Auto) 6.1 % [place] % (Auto) 7.7 % Eos % (Auto) 0.5 % Baso % (Auto) 0.2 % Neut # (Auto) 10.77 H (1.4-6.5) K/uL Lymph # (Auto) 0.77 L (1.2-3.4) K/uL [place] # (Auto) 0.97 H (0.11-0.59) K/uL Eos # (Auto) 0.06 (0-0.5) K/uL Baso # (Auto) 0.02 (0-0.2) K/uL Immature Gran # (Auto) 0.03 H (0.00-0.02) K/uL Sodium 138 (136-145) mmol/L Potassium 4.3 (3.5-5.1) mmol/L Chloride 106 (98-107) mmol/L Carbon Dioxide 25 (21-32) mmol/L Anion Gap 6.0 (3-11) BUN 19 H (7-18) mg/dl Creatinine 0.96 (0.6-1.4) mg/dl Est Cr Clr Drug Dosing 41.3 ml/min Est GFR ( Amer) 82.6 ml/min Est GFR (Non-Af Amer) 71.3 ml/min BUN/Creatinine Ratio 20.3 H (10-20) Glucose 82 (70-99) mg/dl Calcium 9.1 (8.5-10.1) mg/dl Magnesium 2.6 H (1.8-2.4) mg/dl Total Bilirubin 1.2 H (0.2-1) mg/dl AST 9 L (15-37) U/L ALT 9 L (12-78) U/L Alkaline Phosphatase 81 (45-117) U/L Total Creatine Kinase 52 (39-308) U/L CK-MB (CK-2) < 1.0 (0.5-3.6) ng/ml CK/CKMB % Calc TNP Troponin I < 0.015 (0-0.045) ng/ml Total Protein 7.3 (6.4-8.2) gm/dl Albumin 3.1 L (3.4-5.0) gm/dl Globulin 4.2 H (2.5-4.0) gm/dl Albumin/Globulin Ratio 0.7 L (0.9-2) TSH 0.756 (0.300-4.500) uIu/ml Urine Color Urine Appearance (Clear) Urine pH (4.5-7.5) POC Urine pH (4.5-7.5) Ur Specific [place] (1.000-1.030) Urine Protein (Negative) POC Urine Protein (Negative) Urine Glucose (UA) (Negative) POC Ur Glucose (UA) (Normal) Urine Ketones (Negative) POC Urine Ketones (Negative) Urine Blood (Negative) POC Urine Blood (Negative) Urine Nitrite (Negative) POC Urine Nitrite (Negative) Urine Bilirubin (Negative) POC Urine Bilirubin (Negative) Urine Urobilinogen (Negative) POC Urine Urobilinogen (Normal) Ur Leukocyte Esterase (Negative) POC U Leukocyte Esteras (Negative) Urine WBC (Auto) (0-5) /hpf Urine RBC (Auto) (0-4) /hpf U Hyaline Cast (Auto) (0-5) /lpf U Epithel Cells (Auto) (0-5) /lpf Urine Bacteria (Auto) (Negative) COVID-19 Eval Order Covid19 at [facility] SARS-CoV-2 (PCR) (Negative) 04/05/21 04/05/21 04/05/21 Range/Units 09:55 11:11 11:17 WBC (4.8-10.8) K/uL RBC (4.7-6.1) M/uL Hgb (14.0-18.0) g/dL Hct (42-52) % MCV (80-100) fL MCH (25-34) pg MCHC (32-36) g/dL RDW Std Deviation (36.4-46.3) fL RDW Coeff of Casimiro (11.5-14.5) % Plt Count (130-400) K/uL MPV (7.4-10.4) fL Immature Gran % (Auto) % Neut % (Auto) % Lymph % (Auto) % [place] % (Auto) % Eos % (Auto) % Baso % (Auto) % Neut # (Auto) (1.4-6.5) K/uL Lymph # (Auto) (1.2-3.4) K/uL [place] # (Auto) (0.11-0.59) K/uL Eos # (Auto) (0-0.5) K/uL Baso # (Auto) (0-0.2) K/uL Immature Gran # (Auto) (0.00-0.02) K/uL Sodium (136-145) mmol/L Potassium (3.5-5.1) mmol/L Chloride (98-107) mmol/L Carbon Dioxide (21-32) mmol/L Anion Gap (3-11) BUN (7-18) mg/dl Creatinine (0.6-1.4) mg/dl Est Cr Clr Drug Dosing ml/min Est GFR ( Amer) ml/min Est GFR (Non-Af Amer) ml/min BUN/Creatinine Ratio (10-20) Glucose (70-99) mg/dl Calcium (8.5-10.1) mg/dl Magnesium (1.8-2.4) mg/dl Total Bilirubin (0.2-1) mg/dl AST (15-37) U/L ALT (12-78) U/L Alkaline Phosphatase (45-117) U/L Total Creatine Kinase (39-308) U/L CK-MB (CK-2) (0.5-3.6) ng/ml CK/CKMB % Calc Troponin I (0-0.045) ng/ml Total Protein (6.4-8.2) gm/dl Albumin (3.4-5.0) gm/dl Globulin (2.5-4.0) gm/dl Albumin/Globulin Ratio (0.9-2) TSH (0.300-4.500) uIu/ml Urine Color Dark Yellow Urine Appearance Cloudy A (Clear) Urine pH 8.5 H (4.5-7.5) POC Urine pH 9 H (4.5-7.5) Ur Specific [place] 1.020 (1.000-1.030) Urine Protein 3+ H (Negative) POC Urine Protein Negative (Negative) Urine Glucose (UA) Negative (Negative) POC Ur Glucose (UA) Normal (Normal) Urine Ketones 2+ H (Negative) POC Urine Ketones 2+ (Moderate) H (Negative) Urine Blood 3+ H (Negative) POC Urine Blood 250 H (Negative) Urine Nitrite Positive A (Negative) POC Urine Nitrite Positive A (Negative) Urine Bilirubin Negative (Negative) POC Urine Bilirubin Negative (Negative) Urine Urobilinogen Negative (Negative) POC Urine Urobilinogen Normal (Normal) Ur Leukocyte Esterase 2+ H (Negative) POC U Leukocyte Esteras 2+ H (Negative) Urine WBC (Auto) >30 H (0-5) /hpf Urine RBC (Auto) >30 H (0-4) /hpf U Hyaline Cast (Auto) 1-5 (0-5) /lpf U Epithel Cells (Auto) 5-10 H (0-5) /lpf Urine Bacteria (Auto) 3+ H (Negative) COVID-19 Eval Order SARS-CoV-2 (PCR) NEGATIVE (Negative) Imaging Data Attestation: I personally reviewed and interpreted this imaging study as follo ws: My Impression: Chest x-rayno acute infiltrate, failure, pneumothorax seen Radiologist's Impression: Chest X-Ray 04/05/21 08:59 XR chest 1V portable INDICATION: MN ^weakness . TECHNIQUE: Single frontal radiograph of the chest was obtained. Comparison: Comparison is made to chest one view 02/22/2019 FINDINGS: No lines and tubes are seen. Cardiomegaly is noted. The lungs are clear. No evidence of pleural effusion or pneumothorax. Again noted is eventration/elevation of the left hemidiaphragm. IMPRESSION: Stable cardiomegaly. Otherwise no acute abnormalities. ACT 112: Negative or not required by law. Electronically signed by: Nikolas Coello M.D. 04/05/2021 9:38 AM Abdomen/Pelvis CT 04/05/21 09:00 CT abd pelvis wo con CLINICAL INDICATION: MN ^CTR C4 ^urine rentention, urinary symptoms. TECHNIQUE: Helical axial images of the abdomen and pelvis were obtained. Automated dose lowering techniques and/or adjustment according to patient size were utilized for this exam. This exam was performed without intravenous contrast. COMPARISON: Comparison is made to CT abdomen and pelvis 02/22/2019 FINDINGS: Lower chest: Eventration of the left hemidiaphragm is again noted. There is marked cardiomegaly. Liver: Unremarkable. No focal lesions are seen. Gallbladder and biliary tree: Cholelithiasis is seen without evidence of cholecystitis. No intra- or extrahepatic biliary ductal dilation. Pancreas: Unremarkable, no focal lesions. Spleen: Unremarkable. Adrenals: Thickening of the bilateral adrenal glands is again seen. Kidneys and ureters: Perinephric stranding is noted bilaterally. Bladder: Diffuse smooth bladder wall thickening is seen. Layering radiodense material is seen in the bladder. Reproductive organs: Prostatomegaly is seen. Bowel: Unremarkable. Lymph nodes Retroperitoneal: Unremarkable. Mesenteric: Unremarkable. Pelvic: Unremarkable. Peritoneum: Normal Vessels: Atherosclerotic calcifications are seen. Abdominal wall: Unremarkable. Bones: Degenerative changes in the visualized spine. IMPRESSION: 1. Marked thickening of the bladder wall, new from prior exam, compatible with chronic bladder outlet obstruction this patient with prostatomegaly. Layering material in the bladder is favored to represent stones. No hydronephrosis or nephroureterolithiasis is seen. 2. Additional findings as above. ACT 112: Negative or not required by law. Electronically signed by: Nikolas Coello M.D. 04/05/2021 11:[address] 04/05/21 09:00 CT lumbar spine wo con HISTORY: 85 years-old Male urinary retention chronic low back pain with reported urinary retention. COMPARISON: CT abdomen and pelvis of same day and also 02/22/2019 TECHNIQUE: Multiple axial CT images of the lumbar spine were obtained without the use of IV contrast A dose lowering technique was used consistent with the principals of ALARA. FINDINGS: Demineralized appearance of the bones. 20 degrees lumbar levoscoliosis redemonst rated measured from L3-L5. Mild to moderate multilevel intervertebral disc space narrowing with vacuum disc phenomena and advanced spondylitic spurring with severe facet arthrosis. Unchanged endplate irregularity at L5. 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 No acute fracture, subluxation or endplate erosion. The imaged sacrum and iliac bones appear intact. No suspicious bone lesions. Evaluation of the central canal and neuroforamina is better assessed by MRI. Multilevel neural foraminal narrowing. There is at least moderate central canal stenosis at L3-L4. No paravertebral edema identified. Bilateral perinephric edema. Moderate fecal retention. Extensive calcified plaque of the abdominal aorta. IMPRESSION: 1. No acute fracture or subluxation. 2. Scoliosis with multilevel intervertebral disc space narrowing, spondylitic spurring and facet arthrosis as detailed above. 3. 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 ACT 112: Negative or not required by law. The above report was generated using voice recognition software. It may contain grammatical, syntax or spelling errors. Electronically signed by: Shin Art M.D. 04/05/2021 11:50 AM ECG Data Attestation: I personally reviewed and interpreted this ECG as follows: Indication: + weakness Rate (beats per minute): 65 Rhythm: + atrial fibrillation ECG Intervals/blocks: + Normal QRS and + Normal QT ECG Findings: + PVCs; no PACs Comparison ECG Date: from (02/22/19) Change: the following changes noted (Rate has increased) MDM Narrative This patient comes in as described above. He was placed on a quality assurance monitor body in room C4. He comes back with urinary frequency. I did a bladder scan to evaluate for possible retention. He has no acute neurologic deficits on exam. no numbness in his buttocks to suggest cauda equina. He is generally weak and EMS was concerned about his living conditions. Extensive work-up was done here. Looking back through his chart he does have history of A. fib but is not on any blood thinners. IV access established, blood work was obtained he was hydrated with an IV normal saline bolus. I did CAT scans of the abdomen and back. CAT scan does not show any acute abnormalities which would explain his symptoms there is no obstructive uropathy there are findings consistent with a cystitis. His urinalysis does suggest a UTI as well. Does have an elevated white count. He was given Rocephin 2 g IV. I do think he needs to be admitted for his weakness UTI I am concerned about his inability to care for himself at home. EM S was concerned about the situation at his house. I did consult Dr. Gerard to see him in ER for these measures. Continuous cardiac monitoring: Orders placed in EMR for continuous quality assurance monitor body. Upon my interpretation the patient was noted to be in a rate controlled A. fib with a rate of 65. Impression & Plan Weakness, Atrial fibrillation, Acute UTI (urinary tract infection), Lab test negative for COVID-19 virus Discharge Plan Visit Data Chief Complaint: Urinary Symptoms Stated Complaint: CONSTIPATION & URINARY ISSUES ED Provider: Taiwo Burton Discharge Problem: Weakness, Atrial fibrillation, Acute UTI (urinary tract infection), Lab test negative for COVID-19 virus Forms Stand Alone Forms: My [facility] Prescriptions Prescriptions: No Action hydrochlorothiazide 25 mg tablet 25 mg PO QAM Qty: 30 RF: 5 aspirin [Ecotrin] 325 mg tablet,delayed release (DR/EC) 325 mg PO QAM RF: 0 acetaminophen [Tylenol Extra Strength] 500 mg Tablet 1,000 mg PO Q8H Qty: 30 RF: 0 tamsulosin [Flomax] 0.4 mg capsule 0.4 mg PO QAM RF: 0 losartan [Cozaar] 50 mg tablet 50 mg PO DAILY RF: 0 sennosides-docusate sodium [Senokot-S] 8.6-50 mg tablet 2 tab PO DAILY PRN (Reason: constipation) RF: 0 famotidine [Pepcid] 20 mg tablet 20 mg PO HS RF: 0 amlodipine [Norvasc] 10 mg tablet 10 mg PO QAM RF: 0 finasteride [Proscar] 5 mg tablet 5 mg PO QAM RF: 0 melatonin 5 mg capsule 5 mg PO HS RF: 0 Colace Clear 50 mg capsule 50 mg PO BID PRN (Reason: constipation) Qty: 60 RF: 0 bisacodyl 5 mg tablet 5 mg PO BID PRN (Reason: constipation) Qty: 20 RF: 0 Referrals Referrals: Nicole Quesada MD [Primary Care Provider] -
--- NOTE | 2021-04-05 09:39 | XRay Report ---
XR chest 1V portable INDICATION: MN ^weakness . TECHNIQUE: Single frontal radiograph of the chest was obtained. Comparison: Comparison is made to chest one view 02/22/2019 FINDINGS: No lines and tubes are seen. Cardiomegaly is noted. The lungs are clear. No evidence of pleural effus ion or pneumothorax. Again noted is eventration/elevation of the left hemidiaphragm. IMPRESSION: Stable cardiomegaly. Otherwise no acute abnormalities. ACT 112: Negative or not required by law. Electronically signed by: Nikolas Coello M.D. 04/05/2021 9:38 AM
[2021-04-05 10:11] LABS: Basophils # (auto) 0.02 K/uL (0-0.2); Basophils % (auto) 0.2 %; Eosinophils # (auto) 0.06 K/uL (0-0.5); Eosinophils % (auto) 0.5 %; Hematocrit (blood only) 34.2 % (42-52); Hemoglobin 11.1 g/dL (14.0-18.0); Immature Granulocytes # (auto) 0.03 K/uL (0.00-0.02); Immature Granulocytes % (auto) 0.2 %; Lymphocytes # (auto) 0.77 K/uL (1.2-3.4); Lymphocytes % (auto) 6.1 %; Mean Corpuscular Hgb Conc 32.5 g/dL (32-36); Mean Corpuscular Volume 86.1 fL (80-100); Mean Platelet Volume 8.8 fL (7.4-10.4); Monocytes # (auto) 0.97 K/uL (0.11-0.59); Monocytes % (auto) 7.7 %; Neutrophils # (auto) 10.77 K/uL (1.4-6.5); Neutrophils % (auto) 85.3 %; Platelet Count 316 K/uL (130-400); RDW Coefficient of Variation 14.6 % (11.5-14.5); RDW Standard Deviation 46.2 fL (36.4-46.3); Red Blood Count 3.97 M/uL (4.7-6.1); White Blood Count 12.62 K/uL (4.8-10.8)
[2021-04-05 10:34] LABS: Alanine Aminotransferase 9 U/L (12-78); Albumin Level 3.1 gm/dl (3.4-5.0); Aspartate Aminotransferase 9 U/L (15-37); BUN Creatinine Ratio 20.3 (10-20); Blood Urea Nitrogen 19 mg/dl (7-18); Calcium 9.1 mg/dl (8.5-10.1); Carbon Dioxide 25 mmol/L (21-32); Chloride 106 mmol/L (98-107); Creatinine Clr Calc Pharmacy 41.3 ml/min; Est GFR (African American) 82.6 ml/min; Est GFR (Non-African American) 71.3 ml/min; Glucose 82 mg/dl (70-99); Magnesium 2.6 mg/dl (1.8-2.4); Potassium 4.3 mmol/L (3.5-5.1); Sodium 138 mmol/L (136-145)
[2021-04-05 10:45] LABS: Albumin Globulin Ratio 0.7 (0.9-2); Alkaline Phosphatase 81 U/L (45-117); Bilirubin,Total 1.2 mg/dl (0.2-1); Creatine Kinase 52 U/L (39-308); Creatine Kinase MB < 1.0 ng/ml (0.5-3.6); Globulin 4.2 gm/dl (2.5-4.0); Thyroid Stimulating Hormone 0.756 uIu/ml (0.300-4.500); Total Protein 7.3 gm/dl (6.4-8.2); Troponin I < 0.015 ng/ml (0-0.045)
[2021-04-05 11:22] LABS: POC Urine Bilirubin Negative (Negative); POC Urine Blood 250 (Negative); POC Urine Glucose Normal (Normal); POC Urine Leukocytes 2+ (Negative); POC Urine Nitrite Positive (Negative); POC Urine Protein Negative (Negative); POC Urine Urobilinogen Normal (Normal); POC Urine pH 9 (4.5-7.5)
[2021-04-05 11:36] LABS: Appearance Urine Cloudy (Clear); Bacteria Urine Automated 3+ (Negative); Bilirubin Urine Negative (Negative); Blood Urine 3+ (Negative); Color Urine Dark Yellow; Glucose Urine UA Negative (Negative); Ketones Urine 2+ (Negative); Leukocyte Esterase Urine 2+ (Negative); Nitrite Urine Positive (Negative); Protein Urine 3+ (Negative); RBC Urine Automated >30 /hpf (0-4); Urobilinogen Urine Negative (Negative); WBC Urine Automated >30 /hpf (0-5); pH Urine 8.5 (4.5-7.5)
--- NOTE | 2021-04-05 11:51 | CT Scan Report ---
CT lumbar spine wo con HISTORY: 85 years-old Male urinary retention chronic low back pain with reported urinary retention. COMPARISON: CT abdomen and pelvis of same day and also 02/22/2019 TECHNIQUE: Multiple axial CT images of the lumbar spine were obtained without the use of IV contrast A dose lowering technique was used consistent with the principals of CHARY. FINDINGS: Demineralized appearance of the bones. 20 degrees lumbar levoscoliosis redemonstrated measured from L 3-L5. Mild to moderate multilevel intervertebral disc space narrowing with vacuum disc phenomena and advanced spondylitic spurring with severe facet arthrosis. Unchanged endplate irregularity at L5. Chr onic ununited fractures of the left L3 and L4 transverse processes. No acute fracture, subluxation or endplate erosion. The imaged sacrum and iliac bones appear intact. No suspicious bone lesions. Evalu ation of the central canal and neuroforamina is better assessed by MRI. Multilevel neural foraminal n arrowing. There is at least moderate central canal stenosis at L3-L4. No paravertebral edema identifi ed. Bilateral perinephric edema. Moderate fecal retention. Extensive calcified plaque of the abdominal ao rta. IMPRESSION: 1. No acute fracture or subluxation. 2. Scoliosis with multilevel intervertebral disc space narrowing, spondylitic spurring and facet arth rosis as detailed above. 3. 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 ACT 112: Negative or not required by law. The above report was generated using voice recognition software. It may contain grammatical, syntax o r spelling errors. Electronically signed by: Shin Art M.D. 04/05/2021 11:50 AM
--- NOTE | 2021-04-05 12:01 | CT Scan Report ---
CT abd pelvis wo con CLINICAL INDICATION: MN ^CTR C4 ^urine rentention, urinary symptoms. TECHNIQUE: Helical axial images of the abdomen and pelvis were obtained. Automated dose lowering tech niques and/or adjustment according to patient size were utilized for this exam. This exam was perfor med without intravenous contrast. COMPARISON: Comparison is made to CT abdomen and pelvis 02/22/2019 FINDINGS: Lower chest: Eventration of the left hemidiaphragm is again noted. There is marked cardiomegaly. Liver: Unremarkable. No focal lesions are seen. Gallbladder and biliary tree: Cholelithiasis is seen without evidence of cholecystitis. No intra- or extrahepatic biliary ductal dilation. Pancreas: Unremarkable, no focal lesions. Spleen: Unremarkable. Adrenals: Thickening of the bilateral adrenal glands is again seen. Kidneys and ureters: Perinephric stranding is noted bilaterally. Bladder: Diffuse smooth bladder wall thickening is seen. Layering radiodense material is seen in the bladder. Reproductive organs: Prostatomegaly is seen. Bowel: Unremarkable. Lymph nodes Retroperitoneal: Unremarkable. Mesenteric: Unremarkable. Pelvic: Unremarkable. Peritoneum: Normal Vessels: Atherosclerotic calcifications are seen. Abdominal wall: Unremarkable. Bones: Degenerative changes in the visualized spine. IMPRESSION: 1. Marked thickening of the bladder wall, new from prior exam, compatible with chronic bladder outle t obstruction this patient with prostatomegaly. Layering material in the bladder is favored to repres ent stones. No hydronephrosis or nephroureterolithiasis is seen. 2. Additional findings as above. ACT 112: Negative or not required by law. Electronically signed by: Nikolas Coello M.D. 04/05/2021 11:59 AM
[2021-04-05] MEDS ORDERED: cefTRIAXone SODIUM 2,000 MG/70 ML BAG IV STA (12:02)
--- NOTE | 2021-04-05 13:00 | History & Physical Report ---
Date of Service April 05, 2021 Assessment & Plan (1) BPH w urinary obs/LUTS: Plan: BPH with LUTS/urinary retention- Follow urine culture and sensitivity Increase tamsulosin from 0.4 mg to 0.8 mg and change back to before bedtime Ceftriaxone 1 g IV daily NSS + KCl 20 mEq at 80 mils per hour Continue finasteride. If symptoms persist despite above, would change finasteride to dutasteride (2) Constipation: Plan: In part likely secondary to inadequate fluid intake. Continue with bowel regimen (3) Urinary retention: Plan: See above (4) Weakness: Plan: Weakness/frequent falls/failure to thrive- customer services manager for help regarding assessment of home environment. He has had significant weight loss, looks quite emaciated, and should be considered for either home services or some type of facility (5) Frequent falls: Plan: See above (6) Atrial fibrillation: Plan: Atrial fibrillation/hypertension- Hold HCTZ Hold losartan Continue amlodipine 10 mg daily and aspirin daily. (7) COPD (chronic obstructive pulmonary disease): Plan: Does not report any symptoms of shortness of breath or dyspnea exertion, but likely does not move around his home enough to exert symptoms (8) Benign essential hypertension: Plan: See above (9) GERD without esophagitis: Plan: Continue famotidine (10) Lower limb amputation status: Plan: Has no complaints regarding device, however, looks to have need for routine maintenance History of Present Illness Chief Complaint: The patient presents to the emergency department for assessment of urinary frequency, having been seen in the ED few days ago regarding issues with constipation and urinary retention Primary Care Provider: Nicole Quesada MD The patient is an 85-year-old male with a past medical history including urinary retention, confusion, insomnia, BPH with LUTS, bowel dysfunction, frequent falls, rhabdomyolysis, chronic anemia, atrial fibrillation, hypertension, COPD, GERD without esophagitis, macular degeneration and right lower limb amputation status. He was initially seen in the emergency department on April 01 for constipation and urinary retention issues, and returns today for continued urinary frequency. EMS reports that when they entered his house, they became very concerned about his living conditions. Patient reports he does not eat very often but eats when he wants to. He reports that he does not often feel like cooking and so does not eat very much. He reports that his son does live in the house, but does not see him often, and does not get much help from him as he works a lot. Allergies Allergy/AdvReac Type Severity Reaction Status Date / Time No Known Drug Allergies Allergy Verified 04/05/21 10:15 Home Medications Medication Instructions Recorded Confirmed Type acetaminophen 500 mg tablet 1,000 mg PO Q8H #30 tab 02/24/19 04/05/21 Rx (Tylenol Extra Strength) aspirin 325 mg tablet,delayed 325 mg PO QAM 07/23/19 04/05/21 History release (Ecotrin) hydrochlorothiazide 25 mg tablet 25 mg PO QAM #30 tab 12/27/20 04/05/21 Rx amlodipine 10 mg tablet (Norvasc) 10 mg PO QAM 04/01/21 04/05/21 History bisacodyl 5 mg tablet 5 mg PO BID PRN #20 tab 04/01/21 04/05/21 Rx docusate sodium 50 mg capsule 50 mg PO BID PRN #60 cap 04/01/21 04/05/21 Rx (Colace Clear) famotidine 20 mg tablet (Pepcid) 20 mg PO HS 04/01/21 04/05/21 History finasteride 5 mg tablet (Proscar) 5 mg PO QAM 04/01/21 04/05/21 History losartan 50 mg tablet (Cozaar) 50 mg PO DAILY 04/01/21 04/05/21 History melatonin 5 mg capsule 5 mg PO HS 04/01/21 04/05/21 History sennosides 8.6 mg-docusate sodium 2 tab PO DAILY PRN 04/01/21 04/05/21 History 50 mg tablet (Senokot-S) tamsulosin 0.4 mg capsule (Flomax) 0.4 mg PO QAM 04/01/21 04/05/21 History Past Med/Surg History Medical History (Updated 04/05/21 @ 13:18 by Simon Cherry MD) Benign essential hypertension Chronic hyponatremia COPD (chronic obstructive pulmonary disease) Diaphragmatic hernia Fall from motorized mobility scooter, initial encounter GERD without esophagitis Hypokalemia Hypomagnesemia Left rib fracture Left sided chest pain Macular degeneration Problem with literacy Rhabdomyolysis Surgical History Lower limb amputation status Family History Other Family history non-contributory Denies family history of Ovarian cancer Prostate cancer Myocardial infarction Breast cancer Colorectal cancer Social History Smoking Status: Unknown if ever smoked Second Hand Exposure: Yes; Hx Alcohol Use: Yes Alcohol type: beer and hard liquor Hx Substance Use: No Preferred Language: Indonesian Communication Ability: Effective Car Inspector Required: Yes Beliefs That Will Affect Care: None marital status: / Current Living Situation: Family Current Living Situation Comment: son lives with him current occupational status: retired Feels Safe at Home: Yes Dental Care, Regularly: No Seatbelt Use: always Sunscreen Use: No Assistive Devices: Prosthesis Review of Systems Review of Systems: The patient denies chest pain, palpitations, shortness of breath, dyspnea on exertion, cough, lower extremity swelling, sore throat, fevers, chills, sweats, nausea, vomiting, diarrhea, abdominal pain, pelvic pain, blood in urine or stool, lightheadedness, dizziness, headache, memory loss, loss of consciousness, rash, abnormal bruising or bleeding, focal or generalized weakness, numbness or tingling in arms, generalized arthralgias or myalgias, back or neck pain, or night sweats. The review of systems is otherwise negative other than for that already noted above, and at least 10 systems have been reviewed. Physical Exam Physical Exam: The patient is awake, alert and oriented 3, looks emaciated, normocephalic and atraumatic, lying in bed and in no acute distress. HEENT--PERRL, EOMI, mucous membranes and oropharynx moderately dry. Neck--supple. No JVD. No bruits. Thyroid normal, trachea midline, no adenopathy. Heart--normal S1 and S2. No murmurs, rubs or gallops. Lungs--clear bilaterally, no respiratory distress, no accessory muscle use. Abdomen--normal bowel sounds and soft. Nontender. Nondistended, no hernias or masses, no organomegaly. Extremities--no cyanosis or clubbing. No edema. Dermatologic--skin is very dry Neurologic--cranial nerves II through XII grossly intact. Rheumatologic--limited exam Psychiatric--normal affect. Results & Data Results & Data ([facility]) Vital Signs (Past 12 Hours) Vital Signs Temp Pulse Pulse Resp BP BP Pulse Ox 04/05/21 10:56 66 20 165/77 H 99 04/05/21 09:44 64 20 97 04/05/21 08:56 99.5 F 62 22 167/58 H 99 04/05/21 08:49 99.5 F 75 22 167/58 H 99 Laboratory Results Laboratory Results WBC 12.62 K/uL (4.8-10.8) H 04/05/21 09:55 RBC 3.97 M/uL (4.7-6.1) L 04/05/21 09:55 Hgb 11.1 g/dL (14.0-18.0) L 04/05/21 09:55 Hct 34.2 % (42-52) L 04/05/21 09:55 MCV 86.1 fL (80-100) 04/05/21 09:55 MCH 28.0 pg (25-34) 04/05/21 09:55 MCHC 32.5 g/dL (32-36) 04/05/21 09:55 RDW Std Deviation 46.2 fL (36.4-46.3) 04/05/21 09:55 RDW Coeff of Casimiro 14.6 % (11.5-14.5) H 04/05/21 09:55 Plt Count 316 K/uL (130-400) 04/05/21 09:55 MPV 8.8 fL (7.4-10.4) 04/05/21 09:55 Immature Gran % (Auto) 0.2 % 04/05/21 09:55 Neut % (Auto) 85.3 % 04/05/21 09:55 Lymph % (Auto) 6.1 % 04/05/21 09:55 [place] % (Auto) 7.7 % 04/05/21 09:55 Eos % (Auto) 0.5 % 04/05/21 09:55 Baso % (Auto) 0.2 % 04/05/21 09:55 Neut # (Auto) 10.77 K/uL (1.4-6.5) H 04/05/21 09:55 Lymph # (Auto) 0.77 K/uL (1.2-3.4) L 04/05/21 09:55 [place] # (Auto) 0.97 K/uL (0.11-0.59) H 04/05/21 09:55 Eos # (Auto) 0.06 K/uL (0-0.5) 04/05/21 09:55 Baso # (Auto) 0.02 K/uL (0-0.2) 04/05/21 09:55 Immature Gran # (Auto) 0.03 K/uL (0.00-0.02) H 04/05/21 09:55 Sodium 138 mmol/L (136-145) 04/05/21 09:55 Potassium 4.3 mmol/L (3.5-5.1) 04/05/21 09:55 Chloride 106 mmol/L (98-107) 04/05/21 09:55 Carbon Dioxide 25 mmol/L (21-32) 04/05/21 09:55 Anion Gap 6.0 (3-11) 04/05/21 09:55 BUN 19 mg/dl (7-18) H 04/05/21 09:55 Creatinine 0.96 mg/dl (0.6-1.4) 04/05/21 09:55 Est Cr Clr Drug Dosing 41.3 ml/min 04/05/21 09:55 Est GFR ( Amer) 82.6 ml/min 04/05/21 09:55 Est GFR (Non-Af Amer) 71.3 ml/min 04/05/21 09:55 BUN/Creatinine Ratio 20.3 (10-20) H 04/05/21 09:55 Glucose 82 mg/dl (70-99) 04/05/21 09:55 Calcium 9.1 mg/dl (8.5-10.1) 04/05/21 09:55 Magnesium 2.6 mg/dl (1.8-2.4) H 04/05/21 09:55 Total Bilirubin 1.2 mg/dl (0.2-1) H 04/05/21 09:55 AST 9 U/L (15-37) L 04/05/21 09:55 ALT 9 U/L (12-78) L 04/05/21 09:55 Alkaline Phosphatase 81 U/L (45-117) 04/05/21 09:55 Total Creatine Kinase 52 U/L (39-308) 04/05/21 09:55 CK-MB (CK-2) < 1.0 ng/ml (0.5-3.6) 04/05/21 09:55 CK/CKMB % Calc TNP 04/05/21 09:55 Troponin I < 0.015 ng/ml (0-0.045) 04/05/21 09:55 Total Protein 7.3 gm/dl (6.4-8.2) 04/05/21 09:55 Albumin 3.1 gm/dl (3.4-5.0) L 04/05/21 09:55 Globulin 4.2 gm/dl (2.5-4.0) H 04/05/21 09:55 Albumin/Globulin Ratio 0.7 (0.9-2) L 04/05/21 09:55 TSH 0.756 uIu/ml (0.300-4.500) 04/05/21 09:55 Urine Color Dark Yellow 04/05/21 11:11 Urine Appearance Cloudy (Clear) A 04/05/21 11:11 Urine pH 8.5 (4.5-7.5) H 04/05/21 11:11 POC Urine pH 9 (4.5-7.5) H 04/05/21 11:17 Ur Specific [place] 1.020 (1.000-1.030) 04/05/21 11:11 Urine Protein 3+ (Negative) H 04/05/21 11:11 POC Urine Protein Negative (Negative) 04/05/21 11:17 Urine Glucose (UA) Negative (Negative) 04/05/21 11:11 POC Ur Glucose (UA) Normal (Normal) 04/05/21 11:17 Urine Ketones 2+ (Negative) H 04/05/21 11:11 POC Urine Ketones 2+ (Moderate) (Negative) H 04/05/21 11:17 Urine Blood 3+ (Negative) H 04/05/21 11:11 POC Urine Blood 250 (Negative) H 04/05/21 11:17 Urine Nitrite Positive (Negative) A 04/05/21 11:11 POC Urine Nitrite Positive (Negative) A 04/05/21 11:17 Urine Bilirubin Negative (Negative) 04/05/21 11:11 POC Urine Bilirubin Negative (Negative) 04/05/21 11:17 Urine Urobilinogen Negative (Negative) 04/05/21 11:11 POC Urine Urobilinogen Normal (Normal) 04/05/21 11:17 Ur Leukocyte Esterase 2+ (Negative) H 04/05/21 11:11 POC U Leukocyte Esteras 2+ (Negative) H 04/05/21 11:17 Urine WBC (Auto) >30 /hpf (0-5) H 04/05/21 11:11 Urine RBC (Auto) >30 /hpf (0-4) H 04/05/21 11:11 U Hyaline Cast (Auto) 1-5 /lpf (0-5) 04/05/21 11:11 U Epithel Cells (Auto) 5-10 /lpf (0-5) H 04/05/21 11:11 Urine Bacteria (Auto) 3+ (Negative) H 04/05/21 11:11 COVID-19 Eval Order Covid19 at [facility] 04/05/21 09:55 SARS-CoV-2 (PCR) NEGATIVE (Negative) 04/05/21 09:55 Impressions Chest X-Ray 04/05/21 08:59 XR chest 1V portable INDICATION: MN ^weakness . TECHNIQUE: Single frontal radiograph of the chest was obtained. Comparison: Comparison is made to chest one view 02/22/2019 FINDINGS: No lines and tubes are seen. Cardiomegaly is noted. The lungs are clear. No evidence of pleural effusion or pneumothorax. Again noted is eventration/elevation of the left hemidiaphragm. IMPRESSION: Stable cardiomegaly. Otherwise no acute abnormalities. ACT 112: Negative or not required by law. Electronically signed by: Nikolas Coello M.D. 04/05/2021 9:38 AM Abdomen/Pelvis CT 04/05/21 09:00 CT abd pelvis wo con CLINICAL INDICATION: MN ^CTR C4 ^urine rentention, urinary symptoms. TECHNIQUE: Helical axial images of the abdomen and pelvis were obtained. Automated dose lowering techniques and/or adjustment according to patient size were utilized for this exam. This exam was performed without intravenous contrast. COMPARISON: Comparison is made to CT abdomen and pelvis 02/22/2019 FINDINGS: Lower chest: Eventration of the left hemidiaphragm is again noted. There is marked cardiomegaly. Liver: Unremarkable. No focal lesions are seen. Gallbladder and biliary tree: Cholelithiasis is seen without evidence of cholecystitis. No intra- or extrahepatic biliary ductal dilation. Pancreas: Unremarkable, no focal lesions. Spleen: Unremarkable. Adrenals: Thickening of the bilateral adrenal glands is again seen. Kidneys and ureters: Perinephric stranding is noted bilaterally. Bladder: Diffuse smooth bladder wall thickening is seen. Layering radiodense material is seen in the bladder. Reproductive organs: Prostatomegaly is seen. Bowel: Unremarkable. Lymph nodes Retroperitoneal: Unremarkable. Mesenteric: Unremarkable. Pelvic: Unremarkable. Peritoneum: Normal Vessels: Atherosclerotic calcifications are seen. Abdominal wall: Unremarkable. Bones: Degenerative changes in the visualized spine. IMPRESSION: 1. Marked thickening of the bladder wall, new from prior exam, compatible with chronic bladder outlet obstruction this patient with prostatomegaly. Layering material in the bladder is favored to represent stones. No hydronephrosis or nephroureterolithiasis is seen. 2. Additional findings as above. ACT 112: Negative or not required by law. Electronically signed by: Nikolas Coello M.D. 04/05/2021 11:[address] 04/05/21 09:00 CT lumbar spine wo con HISTORY: 85 years-old Male urinary retention chronic low back pain with reported urinary retention. COMPARISON: CT abdomen and pelvis of same day and also 02/22/2019 TECHNIQUE: Multiple axial CT images of the lumbar spine were obtained without the use of IV contrast A dose lowering technique was used consistent with the principals of ALARA. FINDINGS: Demineralized appearance of the bones. 20 degrees lumbar levoscoliosis redemonstrated measured from L3-L5. Mild to moderate multilevel intervertebral disc space narrowing with vacuum disc phenomena and advanced spondylitic spurring with severe facet arthrosis. Unchanged endplate irregularity at L5. 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 No acute fracture, subluxation or endplate erosion. The imaged sacrum and iliac bones appear intact. No suspicious bone lesions. Evaluation of the central canal and neuroforamina is better assessed by MRI. Multilevel neural foraminal narrowing. There is at least moderate central canal stenosis at L3-L4. No paravertebral edema identified. Bilateral perinephric edema. Moderate fecal retention. Extensive calcified plaque of the abdominal aorta. IMPRESSION: 1. No acute fracture or subluxation. 2. Scoliosis with multilevel intervertebral disc space narrowing, spondylitic spurring and facet arthrosis as detailed above. 3. 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 ACT 112: Negative or not required by law. The above report was generated using voice recognition software. It may contain grammatical, syntax or spelling errors. Electronically signed by: Shin Art M.D. 04/05/2021 11:50 AM Code Status & VTE Plan Code Status Full code VTE Prophylaxis Plan VTE Prophylaxis will be ordered: Yes PG Care Time/CCT Total # of Minutes Spent Total Time Spent with Patient: Total time spent is greater than 50% in coordination of care (as documented) at patient's floor/unit and/or counseling patient: Coding Level of Care Code 76101 Initial Inpt Care Lvl 3 Diagnoses BPH w urinary obs/LUTS N40.1; N13.8 Constipation K59.09 Constipation type: other constipation type Urinary retention R33.9 Weakness R53.1 Frequent falls R29.6 Atrial fibrillation I48.91 COPD (chronic obstructive pulmonary disease) J44.9 Benign essential hypertension I10 GERD without esophagitis K21.9 Lower limb amputation status Z89.619 (1) Constipation Constipation type: other constipation type Qualified Code(s): K59.09 - Other constipation
[2021-04-05] MEDS ORDERED: ACETAMINOPHEN 325 MG TAB PO PRN (16:17)
[2021-04-05] MEDS ORDERED: DOCUSATE SODIUM/SENNA 50/8.6MG TAB PO PRN (16:17)
[2021-04-05] MEDS ORDERED: ONDANSETRON INJ 2 MG/ML 2 ML VIAL IV PRN (16:17)
[2021-04-05] MEDS: ENOXAPARIN INJ 30 MG/0.3 ML SYR SQ SCH (17:39)
--- NOTE | 2021-04-05 17:52 | Electrocardiogram Report ---
Test Reason : Blood Pressure : / mmHG Vent. Rate : 065 BPM Atrial Rate : 070 BPM P-R Int : 000 ms QRS Dur : 098 ms QT Int : 438 ms P-R-T Axes : 000 002 033 degrees QTc Int : 455 ms Atrial fibrillation with premature ventricular or aberrantly conducted complexes Nonspecific ST and T wave abnormality Abnormal ECG When compared with ECG of 22-FEB-2019 08:25, Vent. rate has increased BY 24 BPM Nonspecific T wave abnormality, improved in Lateral leads QT has lengthened Confirmed by Marquis Block ([id number]) on 04/05/2021 5:52:45 PM Referred By: REFERRED SELF Confirmed By:Arturo Block
[2021-04-05] MEDS: NSS + 20MEQ KCL 20 MEQ/1,000 ML BAG IV SCH (18:49)
[2021-04-05] MEDS: TAMSULOSIN HCL 0.4 MG CAP PO SCH (20:11)
[2021-04-05] MEDS: DOCUSATE SODIUM 100 MG CAP PO SCH (20:11)
[2021-04-05] MEDS: MELATONIN 3 MG TAB PO SCH (20:12)
[2021-04-05] MEDS: FAMOTIDINE 20 MG TAB PO SCH (20:12)
[2021-04-06 06:21] LABS: Basophils # (auto) 0.02 K/uL (0-0.2); Basophils % (auto) 0.2 %; Eosinophils # (auto) 0.12 K/uL (0-0.5); Hematocrit (blood only) 32.3 % (42-52); Hemoglobin 10.6 g/dL (14.0-18.0); Immature Granulocytes # (auto) 0.01 K/uL (0.00-0.02); Immature Granulocytes % (auto) 0.1 %; Lymphocytes # (auto) 0.87 K/uL (1.2-3.4); Lymphocytes % (auto) 7.4 %; Mean Corpuscular Hemoglobin 27.8 pg (25-34); Mean Corpuscular Hgb Conc 32.8 g/dL (32-36); Mean Corpuscular Volume 84.8 fL (80-100); Mean Platelet Volume 9.2 fL (7.4-10.4); Monocytes # (auto) 1.26 K/uL (0.11-0.59); Monocytes % (auto) 10.7 %; Neutrophils # (auto) 9.46 K/uL (1.4-6.5); Neutrophils % (auto) 80.6 %; Platelet Count 321 K/uL (130-400); RDW Coefficient of Variation 14.7 % (11.5-14.5); RDW Standard Deviation 45.9 fL (36.4-46.3); Red Blood Count 3.81 M/uL (4.7-6.1); White Blood Count 11.74 K/uL (4.8-10.8)
[2021-04-06] MEDS: NSS + 20MEQ KCL 20 MEQ/1,000 ML BAG IV SCH ×2 (07:57→21:04)
[2021-04-06] MEDS: FINASTERIDE 5 MG TAB PO SCH (09:00)
[2021-04-06] MEDS: DOCUSATE SODIUM 100 MG CAP PO SCH ×2 (09:01→21:05)
[2021-04-06] MEDS: ASPIRIN 325 MG ECTAB PO SCH (09:01)
--- NOTE | 2021-04-06 10:22 | Hospitalist Progress Note ---
Date of Service April 06, 2021 Assessment & Plan (1) BPH w urinary obs/LUTS: Plan: BPH with LUTS/urinary retention-evidence of cystitis seen on Ct imaging urine culture suggests Gram negative pending identification and sensitivity Increased tamsulosin from 0.4 mg to 0.8 mg and change back to before bedtime Ceftriaxone 1 g IV daily NSS + KCl 20 mEq at 80 mils per hour Continue finasteride. (2) Constipation: Plan: In part likely secondary to inadequate fluid intake. Continue with escalating bowel regimen (3) Urinary retention: Plan: See above (4) Weakness: Plan: Weakness/frequent falls/failure to thrive-could also be an element of sarcopenia and pre existing right lower extremity amputation and prosthesis product manager financial services for help regarding assessment of home environment. He has had significant weight loss, looks quite emaciated, and should be con sidered for either home services or some type of facility PT recommended acute rehab (5) Frequent falls: Plan: PT/OT evaluation recommended rehab, has prostetic limb, attempt reassesment if improved (6) Atrial fibrillation: Plan: permanant Atrial fibrillation/hypertension-not on chronic anticoagulation Hold HCTZ Hold losartan Continue amlodipine 10 mg daily and aspirin daily. (7) COPD (chronic obstructive pulmonary disease): Plan: Does not report any symptoms of shortness of breath or dyspnea exertion, but likely does not move around his home enough to exert symptoms (8) Benign essential hypertension: Plan: controlled with cozaar and amlodipine, continue these (9) GERD without esophagitis: Plan: Continue famotidine (10) Lower limb amputation status: Plan: Has no complaints regarding device, however, will need to ambulate safely with this to go home or have significant help at home Admission and Anticipated Discharge Date Admission Date: April 05, 2021 Subjective this pt wants to go home, he states he does not want to go to rehab. he has his prosthesis and will attempt to ambulate with this Physical Exam Physical Exam: The patient appeared thin and slightly mis kept Vital signs as documented. Head exam is normocephalic atraumatic Neck is without JVD, thyromegaly, or carotid bruits. Lungs are diminished at the bases, no focal loss of breath sounds Cardiac exam, Rhythm is regular.. No murmurs, rubs or gallops. Abdominal exam reveals normal bowel sounds, soft non tender, no masses right bka Neurologic exam is alert and oriented, gruff at times just wants to go home, no focal loss of strength or sensation Skin is without bruises or rashes Psychologically is with concerns for mild dementia Results & Data Results & Data ([facility]) Vital Signs (Past 12 Hours) Vital Signs Temp Pulse Resp BP BP Pulse Ox 04/06/21 08:01 98.2 F 56 L 16 156/52 H 97 04/05/21 23:11 97.3 F L 82 18 185/74 H 100 PG Care Time/CCT Total # of Minutes Spent Total Time Spent with Patient: Total time spent is greater than 50% in coordination of care (as documented) at patient's floor/unit and/or counseling patient: Coding Level of Care Code 38617 Subseq Hosp Care Lvl 3 Diagnoses BPH w urinary obs/LUTS N40.1; N13.8 Constipation K59.09 Constipation type: other constipation type Urinary retention R33.9 Weakness R53.1 Frequent falls R29.6 Atrial fibrillation I48.11 Atrial fibrillation type: longstanding persistent COPD (chronic obstructive pulmonary disease) J44.9 Benign essential hypertension I10 GERD without esophagitis K21.9 Lower limb amputation status Z89.619 (1) Atrial fibrillation Atrial fibrillation type: longstanding persistent Qualified Code(s): I48.11 - Longstanding persistent atrial fibrillation (2) Constipation Constipation type: other constipation type Qualified Code(s): K59.09 - Other constipation
[2021-04-06] MEDS: cefTRIAXone SODIUM 1,000 MG in DEXTROSE 5% 50 ML IV SCH (14:43)
[2021-04-06] MEDS: ENOXAPARIN INJ 30 MG/0.3 ML SYR SQ SCH (16:52)
[2021-04-06] MEDS: MELATONIN 3 MG TAB PO SCH (21:04)
[2021-04-06] MEDS: TAMSULOSIN HCL 0.4 MG CAP PO SCH (21:05)
[2021-04-06] MEDS: FAMOTIDINE 20 MG TAB PO SCH (21:05)
[2021-04-07 08:05] LABS: Basophils # (auto) 0.02 K/uL (0-0.2); Basophils % (auto) 0.2 %; Eosinophils # (auto) 0.09 K/uL (0-0.5); Eosinophils % (auto) 1.1 %; Hematocrit (blood only) 31.9 % (42-52); Hemoglobin 10.6 g/dL (14.0-18.0); Immature Granulocytes # (auto) 0.02 K/uL (0.00-0.02); Immature Granulocytes % (auto) 0.2 %; Lymphocytes # (auto) 0.95 K/uL (1.2-3.4); Lymphocytes % (auto) 11.6 %; Mean Corpuscular Hgb Conc 33.2 g/dL (32-36); Mean Corpuscular Volume 84.2 fL (80-100); Mean Platelet Volume 8.9 fL (7.4-10.4); Monocytes # (auto) 0.82 K/uL (0.11-0.59); Neutrophils # (auto) 6.31 K/uL (1.4-6.5); Neutrophils % (auto) 76.9 %; Platelet Count 344 K/uL (130-400); RDW Coefficient of Variation 14.6 % (11.5-14.5); RDW Standard Deviation 45.3 fL (36.4-46.3); Red Blood Count 3.79 M/uL (4.7-6.1); White Blood Count 8.21 K/uL (4.8-10.8)
[2021-04-07] MEDS: DOCUSATE SODIUM 100 MG CAP PO SCH ×2 (09:20→20:05)
[2021-04-07] MEDS: FINASTERIDE 5 MG TAB PO SCH (09:20)
[2021-04-07] MEDS: ASPIRIN 325 MG ECTAB PO SCH (09:21)
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
[2021-04-07] MEDS: NSS + 20MEQ KCL 20 MEQ/1,000 ML BAG IV SCH (13:19)
[2021-04-07] MEDS: cefTRIAXone SODIUM 1,000 MG in DEXTROSE 5% 50 ML IV SCH (13:46)
[2021-04-07] MEDS ORDERED: HALOPERIDOL LACTATE 5 MG/ML 1 ML VIAL IM STA (16:42)
[2021-04-07] MEDS ORDERED: cefTRIAXone SODIUM 2,000 MG in DEXTROSE 5% 50 ML IV SCH (16:45)
[2021-04-07] MEDS: ENOXAPARIN INJ 30 MG/0.3 ML SYR SQ SCH (18:16)
[2021-04-07] MEDS: TAMSULOSIN HCL 0.4 MG CAP PO SCH (20:04)
[2021-04-07] MEDS: MELATONIN 3 MG TAB PO SCH (20:04)
[2021-04-07] MEDS: CEFDINIR 300 MG CAP PO SCH (20:04)
[2021-04-07] MEDS: FAMOTIDINE 20 MG TAB PO SCH (20:05)
[2021-04-07] MEDS ORDERED: QUEtiapine FUMARATE 25 MG TABLET PO SCH (21:00)
[2021-04-08] MEDS: DOCUSATE SODIUM 100 MG CAP PO SCH (08:50)
[2021-04-08] MEDS: CEFDINIR 300 MG CAP PO SCH (08:50)
[2021-04-08] MEDS: FINASTERIDE 5 MG TAB PO SCH (08:50)
[2021-04-08] MEDS: ASPIRIN 325 MG ECTAB PO SCH (08:50)
[2021-04-08 12:56] LABS: Basophils # (auto) 0.01 K/uL (0-0.2); Basophils % (auto) 0.1 %; Creatinine Clr Calc Pharmacy 59.5 ml/min; Eosinophils # (auto) 0.11 K/uL (0-0.5); Eosinophils % (auto) 1.4 %; Est GFR (African American) 99.6 ml/min; Hematocrit (blood only) 33.1 % (42-52); Hemoglobin 10.9 g/dL (14.0-18.0); Immature Granulocytes # (auto) 0.02 K/uL (0.00-0.02); Immature Granulocytes % (auto) 0.3 %; Lymphocytes # (auto) 0.98 K/uL (1.2-3.4); Lymphocytes % (auto) 12.7 %; Magnesium 2.3 mg/dl (1.8-2.4); Mean Corpuscular Hemoglobin 27.9 pg (25-34); Mean Corpuscular Hgb Conc 32.9 g/dL (32-36); Mean Corpuscular Volume 84.7 fL (80-100); Monocytes % (auto) 10.4 %; Neutrophils % (auto) 75.1 %; Platelet Count 381 K/uL (130-400); RDW Coefficient of Variation 14.6 % (11.5-14.5); RDW Standard Deviation 45.7 fL (36.4-46.3); Red Blood Count 3.91 M/uL (4.7-6.1); White Blood Count 7.72 K/uL (4.8-10.8)
--- NOTE | 2021-04-08 19:01 | Discharge Summary ---
Date of Service April 08, 2021 Admission HPI Per Admitting Provider The patient is an 85-year-old male with a past medical history including urinary retention, confusion, insomnia, BPH with LUTS, bowel dysfunction, frequent falls, rhabdomyolysis, chronic anemia, atrial fibrillation, hypertension, COPD, GERD without esophagitis, macular degeneration and right lower limb amputation status. He was initially seen in the emergency department on April 01 for constipation and urinary retention issues, and returns today for continued urinary frequency. EMS reports that when they entered his house, they became very concerned about his living conditions. Patient reports he does not eat very often but eats when he wants to. He reports that he does not often feel like cooking and so does not eat very much. He reports that his son does live in the house, but does not see him often, and does not get much help from him as he works a lot. Principal Diagnosis metabolic encephalopathy from uti poa Discharge Exam The patient appeared chronically ill and mildly ill kempt Vital signs as documented. Lungs are clear to auscultation and appear unlabored Cardiac exam, Rhythm is regular.. No murmurs, rubs or gallops. Abdominal exam reveals normal bowel sounds, soft non tender, no masses Extremities are nonedematous and both pedal pulses are normal. Neurologic exam is alert and oriented, he is grumbling at times at times with mild confusion spoke to family they said this is typical for him that he needs to get home and he will get better. No focal loss of strength or sensation Skin is without bruises or rashes Psychologically is with concerns for advancing dementia Discharge Data Allergies Allergy/AdvReac Type Severity Reaction Status Date / Time No Known Drug Allergies Allergy Verified 04/05/21 10:15 Consultations 04/05/21 12:19 ED Decision to Admit Stat Ordered Studies 04/05/21 09:00 CT abd pelvis wo con Stat CT lumbar spine wo con Stat Hospital Course (1) Encephalopathy: Pt has waxing and waning metabolic encephalopathy from urinary tract infection present on admission this is improved to the point where I feel he can go home we can have a association of aging home nursing care and his family support him at home patient is a high risk for readmission and is likely on the bubble for needing jail facility. Speaking with son Christiano he feels that his mental status will prove once he comes home. We will continue to treat his infection (2) BPH w urinary obs/LUTS: BPH with LUTS/urinary retention-evidence of cystitis seen on Ct imaging urine culture confirms providencia uti, present on admission he did pull out hi s IV and will have Cefdinir po instead Increased tamsulosin to 0.8 mg before bedtime Continue finasteride. (3) Constipation: Continue with escalating bowel regimen (4) Urinary retention: attempt alpha radha improvement (5) Weakness: Weakness/frequent falls/failure to thrive-could also be an element of sarcopenia and pre existing right lower extremity amputation and prosthesis director of ancillary services for help regarding assessment of home environment. He has had significant weight loss, looks quite emaciated, and will have home nursing and her association of aging involved in post discharge care. PT recommended acute rehab, pt refuses and wants to go home (6) Frequent falls: PT/OT evaluation recommended rehab, has prostetic limb, attempt reassesment if improved (7) Atrial fibrillation: permanant Atrial fibrillation/hypertension-not on chronic anticoagulation not on rate controlling medications patient states he was not interested in these Hold HCTZ Hold losartan Continue amlodipine 10 mg daily and aspirin daily. (8) COPD (chronic obstructive pulmonary disease): Does not report any symptoms of shortness of breath or dyspnea exertion, but likely does not move around his home enough to exert symptoms (9) Benign essential hypertension: controlled with cozaar and amlodipine, continue these (10) GERD without esophagitis: Continue famotidine (11) Lower limb amputation status: Has no complaints regarding device, however, will need to ambulate safely with this to go home or have significant help at home (12) Severe protein-calorie malnutrition: pt raeli has had poor intake at home as is left to himself, will offer supplements here Total Time Total Time Spent Total Time Spent (In Minutes): It required greater than 30 minutes to prepare this patient for discharge Discharge Plan Discharge Items Patient Disposition: Home - Home Health Services Reason For Visit: UTI, BPH/LUTS, FTT Discharge Diagnosis: confusion from urinary tract infection present on admission Activity: Resume your previous activity Non-emergency contact: Primary Care Provider Call non-emergency contact if: you have any medication questions and you have a fever Follow-up/Referrals: Nicole Quesada MD [Primary Care Provider] - Diet: Regular Addtl Attending Provider Instructions: please finish your antibiotics , have good food and drink intake. Keeping well hydrated allows you to treat your urine infection more easily and get rid of it please call your family doctor on saturday to make appointment to see consider a nutritional supplement at home to boost his nutrition Pending Studies at Discharge: No Stand-Alone Forms: My [facility], Smoking Cessation Medications and DC Order Prescriptions: New cefdinir 300 mg Capsule 300 mg PO BID Qty: 14 RF: 0 Continued aspirin [Ecotrin] 325 mg tablet,delayed release (DR/EC) 325 mg PO QAM RF: 0 acetaminophen [Tylenol Extra Strength] 500 mg Tablet 1,000 mg PO Q8H Qty: 30 RF: 0 sennosides-docusate sodium [Senokot-S] 8.6-50 mg tablet 2 tab PO DAILY PRN (Reason: constipation) RF: 0 famotidine [Pepcid] 20 mg tablet 20 mg PO HS RF: 0 finasteride [Proscar] 5 mg tablet 5 mg PO QAM RF: 0 melatonin 5 mg capsule 5 mg PO HS RF: 0 Colace Clear 50 mg capsule 50 mg PO BID PRN (Reason: constipation) Qty: 60 RF: 0 bisacodyl 5 mg tablet 5 mg PO BID PRN (Reason: constipation) Qty: 20 RF: 0 Changed tamsulosin [Flomax] 0.4 mg capsule 0.8 mg PO HS Qty: 60 RF: 3 Discontinued hydrochlorothiazide 25 mg tablet 25 mg PO QAM Qty: 30 RF: 5 losartan [Cozaar] 50 mg tablet 50 mg PO DAILY RF: 0 amlodipine [Norvasc] 10 mg tablet 10 mg PO QAM RF: 0 Discharge Orders: Discharge Order (Routine); Ordered 04/08/21 Ordered By: David Escalante Admission Data Admit Date/Time: 04/05/21 12:58 Attending Provider: David Escalante Admit Provider: Simon Cherry Primary Care Provider: Nicole Quesada Other Providers: Simon Cherry ; [facility] Other Interventions: Discharge Summary Assessment (RN) Last Done: 04/08/21 14:31 Coding Level of Care Code D/C DAY MANAGEMENT >30 MINS Diagnoses Encephalopathy G93.40 BPH w urinary obs/LUTS N40.1; N13.8 Constipation K59.09 Constipation type: other constipation type Urinary retention R33.9 Weakness R53.1 Frequent falls R29.6 Atrial fibrillation I48.11 Atrial fibrillation type: longstanding persistent COPD (chronic obstructive pulmonary disease) J44.9 Benign essential hypertension I10 GERD without esophagitis K21.9 Lower limb amputation status Z89.619 Severe protein-calorie malnutrition E43
== END 2021-04-08 16:16 | disposition home health service (06) ==
LOC: ED 08:38 → SUATTDRO 12:58 → INTOOBSV 12:58 → 3E 12:58

== ENCOUNTER 2021-05-25 11:27 | Observation (INO) ==
[2021-05-25] MEDS ORDERED: dexAMETHasone**PF** 10 MG/ML VIAL IV ONE (11:42)
--- NOTE | 2021-05-25 11:44 | Emergency Department Note ---
Impression & Plan Chest pain, Abnormal EKG, SOB (shortness of breath), Pleural effusion ED Provider Note NAME: TALISHA RIDROXANNA AGE: 85 SEX: M : 1935 ARRIVES VIA: Ambulance INFORMANT: Patient, ED PROVIDER(S): Nuno Chavez DO CHIEF COMPLAINT: Shortness of breath and chest pain HPI: The patient is an 85-year-old male who presented to emergency department for an evaluation of shortness of breath and chest pain. The patient states that he started having symptoms this morning. He states he started to have very severe shortness of breath with any exertion. Has been coughing as well. He denies having any fever. He started to develop chest pain prior to arrival and called 911. He was given nitroglycerin as well as aspirin prior to arrival by the prehospital personnel. At this time his chest pain is completely resolved. He still complains of some shortness of breath. Reportedly he was hypoxic prior to arrival. He was placed on supplemental oxygen. At this time he states his shortness of breath is better as well that he is at rest. He does complain of worsening symptoms with exertion. He states he has been compliant with his usual outpatient medications. The patient denies having any exposure to COVID- 19. He is not vaccinated against COVID-19. He does have a history of atrial fibrillation. He does not take any blood thinners according to the patient. ROS: See above HPI for pertinent positives & negatives. A total of 10 systems reviewed and were otherwise negative. PAST MEDICAL HISTORY: See Below PAST SURGICAL HISTORY: See Below FAMILY HISTORY: See Below SOCIAL HISTORY: See Below HOME MEDICATIONS: See Below ALLERGIES: See Below VITALS: See Below PHYSICAL EXAMINATION: GENERAL: The patient is awake and alert. He is somewhat anxious appearing. EYES: The conjunctivae are clear. The pupils are round and reactive. EARS, NOSE, MOUTH AND THROAT: The nose is without any evidence of any deformity. NECK: The neck is nontender and supple. RESPIRATORY: Diminished breath sounds are noted throughout. There is expiratory wheezing in both upper lung malagon. Mild conversational dyspnea was noted. CARDIOVASCULAR: Irregular heart sounds are noted to auscultation. No definite murmur could be noted to auscultation. GASTROINTESTINAL: The abdomen is soft. Abdomen is nontender. MUSCULOSKELETAL/EXTREMITIES: There is no evidence of gross deformity full range of motion is noted in the hips and shoulders. SKIN: There is no obvious evidence of any rash. NEUROLOGIC: Patient is awake alert and oriented x3 MEDICAL DECISION MAKING: The patient is a 85-year-old male who presented to the emergency department for an evaluation of chest pain. The patient arrived via ambulance. He was given aspirin and nitroglycerin prior to arrival. His symptoms were significantly improved. I discussed the patient's laboratory and radiographic studies with him. I also discussed the limitations of the emergency department work-up for chest pain with him. Ultimately I do feel the patient's risk factors are such that he may require further inpatient management. For this reason [facility] have agreed to evaluate the patient in the emergency department for further management and d isposition. Triage Nursing notes reviewed. Prior medical records reviewed Vital Signs: reviewed and remarkable for elevated blood pressure Differential diagnosis: Cardiac ischemia, aortic dissection, pulmonary embolism, pneumothorax, pneumonia, pericarditis, myocarditis, esophageal rupture, GERD, cholecystitis, pancreatitis, musculoskeletal, as well as other pathologies. ER treatment provided: See below Diagnostics interpreted by me: ECG: EKG was obtained in the emergency department. My interpretation is atrial fibrillation at 77 bpm. LVH was noted by voltage criteria. Lateral and inferior ST depressions were noted. Lateral T wave versions were also noted. This was compared to a tracing from February 032020. The T wave versions are increased compared to the previous tracing otherwise no changes. Cardiac Monitoring: An order was placed for continuous cardiac monitoring. The monitor shows a rate of 75 bpm with sinus rhythm. Laboratory studies: As stated above and show below. Imaging studies: See below Consultation(s): I discussed this case with Dr. Zelaya who is on-call for the [facility] hospitalist group. They will evaluate the patient in the emergency department for further management and disposition. Past Med/Surg History Medical History (Updated 05/25/21 @ 16:21 by Nuno Chavez DO) Benign essential hypertension Chronic hyponatremia COPD (chronic obstructive pulmonary disease) Diaphragmatic hernia Fall from motorized mobility scooter, initial encounter GERD without esophagitis Hypokalemia Hypomagnesemia Left rib fracture Left sided chest pain Macular degeneration Problem with literacy Rhabdomyolysis Surgical History Lower limb amputation status Family History Other Family history non-contributory Denies family history of Ovarian cancer Prostate cancer Myocardial infarction Breast cancer Colorectal cancer Social History Smoking Status: Current every day smoker Second Hand Exposure: Yes; Hx Alcohol Use: No Hx Substance Use: No Preferred Language: Welsh Communication Ability: Effective Die Trouble Shooter Required: No Beliefs That Will Affect Care: None marital status: / Current Living Situation: Family Current Living Situation Comment: son 47yo lives w pt current occupational status: retired Feels Safe at Home: Yes Dental Care, Regularly: No Seatbelt Use: always Sunscreen Use: No Assistive Devices: Glasses Allergies Allergies Allergy/AdvReac Type Severity Reaction Status Date / Time No Known Drug Allergies Allergy Verified 05/25/21 14:35 Home Meds Home Medications Medication Instructions Recorded Confirmed aspirin 325 mg tablet,delayed 325 mg PO QAM 07/23/19 05/25/21 release (Ecotrin) finasteride 5 mg tablet (Proscar) 5 mg PO QAM 04/01/21 05/25/21 sennosides 8.6 mg-docusate sodium 2 tab PO QAM PRN 04/01/21 05/25/21 50 mg tablet (Senokot-S) amlodipine 10 mg tablet 10 mg PO QAM 05/25/21 05/25/21 beta-sitosterol 125 mg-vit D3 10 2 tab PO QAM 05/25/21 05/25/21 hqm-glgxmrhm-tprbqfsmn 250 mg tablet famotidine 10 mg tablet 20 mg PO QAM 05/25/21 05/25/21 hydrochlorothiazide 25 mg tablet 25 mg PO QAM 05/25/21 05/25/21 loperamide-simethicone 2 mg-125 mg 1 tab PO Q3H PRN 05/25/21 05/25/21 tablet losartan 50 mg tablet 50 mg PO QAM 05/25/21 05/25/21 Previous Rx's Medication Instructions Recorded docusate sodium 50 mg capsule 50 mg PO BID PRN #60 cap 04/01/21 (Colace Clear) tamsulosin 0.4 mg capsule (Flomax) 0.8 mg PO HS #60 cap 04/08/21 sulfamethoxazole 800 1 tab PO BID 7 Days #14 tab 05/15/21 mg-trimethoprim 160 mg tablet (Bactrim DS) Results & Data (ED) Vital Signs Vital Signs - 24 hr 05/25/21 11:33 05/25/21 11:40 05/25/21 12:00 Pulse Rate 79 82 92 H Pulse Rate [Left] Pulse Rate from SpO2 Sensor 79 83 Pulse Rhythm [Left] Pulse Strength Normal Pulse Strength [Left] Respiratory Rate 24 25 H 30 H Respiratory Effort / Characteristics Non-Labored Respiratory Depth Normal Respiratory Pattern Regular Blood Pressure 178/106 H 174/85 H Blood Pressure [Right Arm] Blood Pressure Mean 130 114 Blood Pressure Mean [Right Arm] Blood Pressure Position Sitting Blood Pressure Position [Right Arm] Pulse Oximetry 100 100 100 Oxygen Delivery Method Nasal Cannula Room Air Room Air Oxygen Flow Rate 2 Sepsis Recent Fever Within 48 Hours No Sepsis New/Unexplained Change in Mental Status N/A Sepsis Action Taken by Nursing No Action Required 05/25/21 12:30 05/25/21 12:45 05/25/21 12:51 Pulse Rate 58 L Pulse Rate [Left] Pulse Rate from SpO2 Sensor Pulse Rhythm [Left] Pulse Strength Pulse Strength [Left] Respiratory Rate 20 Respiratory Effort / Characteristics Respiratory Depth Respiratory Pattern Blood Pressure Blood Pressure [Right Arm] Blood Pressure Mean Blood Pressure Mean [Right Arm] Blood Pressure Position Blood Pressure Position [Right Arm] Pulse Oximetry 98 98 97 Oxygen Delivery Method Room Air Room Air Room Air Oxygen Flow Rate Sepsis Recent Fever Within 48 Hours Sepsis New/Unexplained Change in Mental Status Sepsis Action Taken by Nursing 05/25/21 13:00 05/25/21 13:30 05/25/21 14:00 Pulse Rate 100 H 92 H 91 H Pulse Rate [Left] Pulse Rate from SpO2 Sensor 95 H 86 Pulse Rhythm [Left] Pulse Strength Pulse Strength [Left] Respiratory Rate 30 H 30 H 34 H Respiratory Effort / Characteristics Respiratory Depth Respiratory Pattern Blood Pressure 179/84 H 191/104 H Blood Pressure [Right Arm] Blood Pressure Mean 115 133 Blood Pressure Mean [Right Arm] Blood Pressure Position Blood Pressure Position [Right Arm] Pulse Oximetry 100 100 96 Oxygen Delivery Method Room Air Room Air Room Air Oxygen Flow Rate Sepsis Recent Fever Within 48 Hours Sepsis New/Unexplained Change in Mental Status Sepsis Action Taken by Nursing 05/25/21 15:10 05/25/21 16:18 Pulse Rate Pulse Rate [Left] 75 Pulse Rate from SpO2 Sensor Pulse Rhythm [Left] Regular Pulse Strength Pulse Strength [Left] Normal Respiratory Rate 19 19 Respiratory Effort / Characteristics Non-Labored Respiratory Depth Normal Normal Respiratory Pattern Regular Regular Blood Pressure Blood Pressure [Right Arm] 126/102 H 179/97 H Blood Pressure Mean Blood Pressure Mean [Right Arm] 110 124 Blood Pressure Position Blood Pressure Position [Right Arm] Lying Lying Pulse Oximetry 97 99 Oxygen Delivery Method Room Air Room Air Oxygen Flow Rate Sepsis Recent Fever Within 48 Hours Sepsis New/Unexplained Change in Mental Status Sepsis Action Taken by Assisted Medications Current Medication List: was personally reviewed by me Laboratory Data Attestation: I reviewed the patient's lab results. Result diagrams: 05/25/21 12:02 05/25/21 12:02 Lab Results 05/25/21 05/25/21 05/25/21 Range/Units 11:46 12:02 12:02 WBC 6.09 (4.8-10.8) K/uL RBC 4.46 L (4.7-6.1) M/uL Hgb 12.2 L (14.0-18.0) g/dL Hct 37.9 L (42-52) % MCV 85.0 (80-100) fL MCH 27.4 (25-34) pg MCHC 32.2 (32-36) g/dL RDW Std Deviation 47.9 H (36.4-46.3) fL RDW Coeff of Casimiro 15.5 H (11.5-14.5) % Plt Count 254 (130-400) K/uL MPV 9.3 (7.4-10.4) fL Immature Gran % (Auto) 0.3 % Neut % (Auto) 76.4 % Lymph % (Auto) 14.1 % Grant % (Auto) 8.2 % Eos % (Auto) 0.3 % Baso % (Auto) 0.7 % Neut # (Auto) 4.65 (1.4-6.5) K/uL Lymph # (Auto) 0.86 L (1.2-3.4) K/uL Grant # (Auto) 0.50 (0.11-0.59) K/uL Eos # (Auto) 0.02 (0-0.5) K/uL Baso # (Auto) 0.04 (0-0.2) K/uL Immature Gran # (Auto) 0.02 (0.00-0.02) K/uL PT (9.0-12.0) Seconds INR (0.9-1.1) APTT (21.0-31.0) Seconds PTT Ratio D-Dimer (0-500) ug/L FEU Sodium 143 (136-145) mmol/L Potassium 4.3 (3.5-5.1) mmol/L Chloride 112 H (98-107) mmol/L Carbon Dioxide 20 L (21-32) mmol/L Anion Gap 10.0 (3-11) BUN 21 H (7-18) mg/dl Creatinine 1.03 (0.6-1.4) mg/dl Est Cr Clr Drug Dosing 42.2 ml/min Est GFR ( Amer) 75.9 ml/min Est GFR (Non-Af Amer) 65.5 ml/min BUN/Creatinine Ratio 20.1 H (10-20) Glucose 102 H (70-99) mg/dl Calcium 9.2 (8.5-10.1) mg/dl Total Bilirubin 1.3 H (0.2-1) mg/dl AST 19 (15-37) U/L ALT 20 (12-78) U/L Alkaline Phosphatase 91 (45-117) U/L Troponin I < 0.015 (0-0.045) ng/ml Total Protein 7.1 (6.4-8.2) gm/dl Albumin 3.1 L (3.4-5.0) gm/dl Globulin 4.0 (2.5-4.0) gm/dl Albumin/Globulin Ratio 0.8 L (0.9-2) Lipase 72 L (73-393) U/L SARS-CoV-2 (PCR) NEGATIVE (Negative) 05/25/21 05/25/21 05/25/21 Range/Units 12:02 12:02 14:41 WBC (4.8-10.8) K/uL RBC (4.7-6.1) M/uL Hgb (14.0-18.0) g/dL Hct (42-52) % MCV (80-100) fL MCH (25-34) pg MCHC (32-36) g/dL RDW Std Deviation (36.4-46.3) fL RDW Coeff of Casimiro (11.5-14.5) % Plt Count (130-400) K/uL MPV (7.4-10.4) fL Immature Gran % (Auto) % Neut % (Auto) % Lymph % (Auto) % Grant % (Auto) % Eos % (Auto) % Baso % (Auto) % Neut # (Auto) (1.4-6.5) K/uL Lymph # (Auto) (1.2-3.4) K/uL Grant # (Auto) (0.11-0.59) K/uL Eos # (Auto) (0-0.5) K/uL Baso # (Auto) (0-0.2) K/uL Immature Gran # (Auto) (0.00-0.02) K/uL PT 11.7 (9.0-12.0) Seconds INR 1.2 H (0.9-1.1) APTT 28.8 (21.0-31.0) Seconds PTT Ratio 1.1 D-Dimer 1190 H* (0-500) ug/L FEU Sodium (136-145) mmol/L Potassium (3.5-5.1) mmol/L Chloride (98-107) mmol/L Carbon Dioxide (21-32) mmol/L Anion Gap (3-11) BUN (7-18) mg/dl Creatinine (0.6-1.4) mg/dl Est Cr Clr Drug Dosing ml/min Est GFR ( Amer) ml/min Est GFR (Non-Af Amer) ml/min BUN/Creatinine Ratio (10-20) Glucose (70-99) mg/dl Calcium (8.5-10.1) mg/dl Total Bilirubin (0.2-1) mg/dl AST (15-37) U/L ALT (12-78) U/L Alkaline Phosphatase (45-117) U/L Troponin I < 0.015 (0-0.045) ng/ml Total Protein (6.4-8.2) gm/dl Albumin (3.4-5.0) gm/dl Globulin (2.5-4.0) gm/dl Albumin/Globulin Ratio (0.9-2) Lipase (73-393) U/L SARS-CoV-2 (PCR) (Negative) Administered Medications Discontinued Medications Amlodipine Besylate (Amlodipine Besylate 5 Mg Tab) 10 mg PO ONE ONE Stop: 05/25/21 14:55 Last Admin: 05/25/21 15:21 Dose: 10 mg Documented by: [id number] Dexamethasone Sodium Phosphate (DexamethasonePf 10 Mg/Ml Vial) 10 mg IV NOW ONE Stop: 05/25/21 11:43 Last Admin: 05/25/21 11:48 Dose: 10 mg Documented by: [id number] Famotidine (Famotidine 20 Mg Tab) 20 mg PO NOW STA Stop: 05/25/21 14:54 Last Admin: 05/25/21 15:21 Dose: 20 mg Documented by: [id number] Ioversol (Optiray 320 125ml) 120 ml IV ONCE ONE Stop: 05/25/21 13:20 Last Admin: 05/25/21 13:19 Dose: 120 ml Documented by: [id number] Losartan Potassium (Losartan Potassium 50 Mg Tab) 50 mg PO ONE STA Stop: 05/25/21 14:54 Last Admin: 05/25/21 15:54 Dose: 50 mg Documented by: [id number] Metoprolol Tartrate (Metoprolol Tartrate 25 Mg Tab) 25 mg PO ONE STA Stop: 05/25/21 14:57 Last Admin: 05/25/21 15:21 Dose: 25 mg Documented by: [id number] Nitroglycerin (Nitroglycerin 2% Ointment 30gm Tube) 1 inch EXT ONE STA Stop: 05/25/21 14:45 Last Admin: 05/25/21 15:22 Dose: 1 inch Documented by: [id number] Imaging Data Radiologist's Impression: Chest X-Ray 05/25/21 11:32 XR chest 1V portable CLINICAL HISTORY: Chest Pain COMPARISON STUDY: Chest radiograph April 05, 2021. FINDINGS: Moderate to marked cardiomegaly is similar to prior exam. There may be a trace right pleural effusion. Old left-sided rib fractures are noted. There is no evidence for pulmonary edema. Skinfold projects over the right chest. Minimal bibasilar opacities favor atelectasis. IMPRESSION: 1. Cardiomegaly without evidence for pulmonary edema. 2. Mild bibasilar opacities which favor atelectasis. 3. Suspected trace right pleural effusion. ACT 112: Negative or not required by law. Electronically signed by: Irving Hassan M.D. 05/25/2021 12:28 PM Chest CTA 05/25/21 12:31 CT ANGIOGRAPHY OF THE CHEST, PULMONARY EMBOLUS PROTOCOL CLINICAL HISTORY: Shortness of breath. Evaluate for pulmonary embolus. COMPARISON STUDY: Chest CT February 19, 2019. Chest radiograph performed earlier today. TECHNIQUE: Following IV administration of 120 mL of Optiray, helical axial images of the chest were obtained utilizing the pulmonary embolus protocol. Maximal intensity projections and sagittal and coronal reformats were viewed on an independent 3D workstation. IV contrast was administered without complication. Automated exposure control was utilized for the study. A dose lowering technique was utilized adhering to the principles of ALARA. CT DOSE: 345.54 mGy.cm FINDINGS: Evaluation for pulmonary emboli is significantly compromised given respiratory motion artifact and suboptimal opacification. Apparent filling defects are likely due to mixing artifact. However, no pulmonary emboli are identified. There is moderate to marked cardiomegaly. Coronary artery calcification is noted. No pericardial effusion. Small bilateral pleural effusions, right larger left, are noted. There is no pneumothorax. Bilateral lower lobe groundglass opacities favor atelectasis. Lungs are suboptimally assessed due to respiratory motion. There is no pneumothorax. There is no thoracic lymphadenopathy. No acute fracture or suspicious lesion is identified within visualized portions of the bony thorax. Old left diaphragmatic hernia is unchanged. A small pericecal fissural nodule within the right lower lobe is unchanged and prior CT. This is benign given stability. There is reflux of contrast into the IVC and hepatic veins. Mild dilatation of the ascending aorta, measuring 4.2 cm, at the level the main pulmonary artery is noted. The thoracic aorta is not opacified. IMPRESSION: 1. No pulmonary emboli identified although exam significantly compromised given respiratory motion artifact and suboptimal vascular opacification. Apparent filling defects are likely due to mixing artifact. 2. Small bilateral pleural effusions, right larger than left. 3. Moderate to marked cardiomegaly. 4. Bilateral lower lobe opacities which favor atelectasis. ACT 112: Negative or not required by law. Electronically signed by: Irving Hassan M.D. 05/25/2021 1:34 PM Discharge Plan Visit Data Chief Complaint: Chest Pain ED Provider: Nuno Chavez Discharge Problem: Chest pain, Abnormal EKG, SOB (shortness of breath), Pleural effusion Patient Disposition: Being Evaluated by Hospitalist Forms Stand Alone Forms: My [facility] Prescriptions Prescriptions: No Action sulfamethoxazole-trimethoprim [Bactrim DS] 800-160 mg tablet 1 tab PO BID 7 Days Qty: 14 RF: 0 aspirin [Ecotrin] 325 mg tablet,delayed release (DR/EC) 325 mg PO QAM RF: 0 sennosides-docusate sodium [Senokot-S] 8.6-50 mg tablet 2 tab PO QAM PRN (Reason: constipation) RF: 0 finasteride [Proscar] 5 mg tablet 5 mg PO QAM RF: 0 Colace Clear 50 mg capsule 50 mg PO BID PRN (Reason: constipation) Qty: 60 RF: 0 tamsulosin [Flomax] 0.4 mg capsule 0.8 mg PO HS Qty: 60 RF: 3 losartan 50 mg tablet 50 mg PO QAM RF: 0 famotidine 10 mg Tablet 20 mg PO QAM RF: 0 amlodipine 10 mg tablet 10 mg PO QAM RF: 0 hydrochlorothiazide 25 mg tablet 25 mg PO QAM RF: 0 loperamide-simethicone 2-125 mg Tablet 1 tab PO Q3H PRN (Reason: Gi Upset) RF: 0 cofl-wtspp-T8-minerals-cranber 125 mg-10 mcg- 250 mg Tablet 2 tab PO QAM RF: 0 Referrals Referrals: Nicole Quesada MD [Primary Care Provider] -
[2021-05-25 12:14] LABS: Basophils # (auto) 0.04 K/uL (0-0.2); Basophils % (auto) 0.7 %; Eosinophils # (auto) 0.02 K/uL (0-0.5); Eosinophils % (auto) 0.3 %; Hematocrit (blood only) 37.9 % (42-52); Hemoglobin 12.2 g/dL (14.0-18.0); Immature Granulocytes # (auto) 0.02 K/uL (0.00-0.02); Immature Granulocytes % (auto) 0.3 %; Lymphocytes # (auto) 0.86 K/uL (1.2-3.4); Lymphocytes % (auto) 14.1 %; Mean Corpuscular Hemoglobin 27.4 pg (25-34); Mean Corpuscular Hgb Conc 32.2 g/dL (32-36); Mean Platelet Volume 9.3 fL (7.4-10.4); Monocytes % (auto) 8.2 %; Neutrophils # (auto) 4.65 K/uL (1.4-6.5); Neutrophils % (auto) 76.4 %; Platelet Count 254 K/uL (130-400); RDW Coefficient of Variation 15.5 % (11.5-14.5); RDW Standard Deviation 47.9 fL (36.4-46.3); Red Blood Count 4.46 M/uL (4.7-6.1); White Blood Count 6.09 K/uL (4.8-10.8)
[2021-05-25 12:24] LABS: INR 1.2 (0.9-1.1); Partial Thromboplastin Ratio 1.1; Partial Thromboplastin Time 28.8 Seconds (21.0-31.0); Prothrombin Time 11.7 Seconds (9.0-12.0)
[2021-05-25 12:29] LABS: D Dimer 1190 ug/L FEU (0-500)
--- NOTE | 2021-05-25 12:29 | XRay Report ---
XR chest 1V portable CLINICAL HISTORY: Chest Pain COMPARISON STUDY: Chest radiograph April 05, 2021. FINDINGS: Moderate to marked cardiomegaly is similar to prior exam. There may be a trace right pleura l effusion. Old left-sided rib fractures are noted. There is no evidence for pulmonary edema. Skinfol d projects over the right chest. Minimal bibasilar opacities favor atelectasis. IMPRESSION: 1. Cardiomegaly without evidence for pulmonary edema. 2. Mild bibasilar opacities which favor atelectasis. 3. Suspected trace right pleural effusion. ACT 112: Negative or not required by law. Electronically signed by: Irving Hassan M.D. 05/25/2021 12:28 PM
[2021-05-25 12:47] LABS: Alanine Aminotransferase 20 U/L (12-78); Albumin Level 3.1 gm/dl (3.4-5.0); Aspartate Aminotransferase 19 U/L (15-37); BUN Creatinine Ratio 20.1 (10-20); Blood Urea Nitrogen 21 mg/dl (7-18); Calcium 9.2 mg/dl (8.5-10.1); Carbon Dioxide 20 mmol/L (21-32); Chloride 112 mmol/L (98-107); Creatinine Clr Calc Pharmacy 42.2 ml/min; Est GFR (African American) 75.9 ml/min; Est GFR (Non-African American) 65.5 ml/min; Glucose 102 mg/dl (70-99); Lipase 72 U/L (73-393); Potassium 4.3 mmol/L (3.5-5.1); Sodium 143 mmol/L (136-145)
[2021-05-25 12:52] LABS: Albumin Globulin Ratio 0.8 (0.9-2); Alkaline Phosphatase 91 U/L (45-117); Bilirubin,Total 1.3 mg/dl (0.2-1); Total Protein 7.1 gm/dl (6.4-8.2); Troponin I < 0.015 ng/ml (0-0.045)
[2021-05-25] MEDS ORDERED: OPTIRAY 320 125ml IV ONE (13:19)
--- NOTE | 2021-05-25 13:35 | CT Scan Report ---
CT ANGIOGRAPHY OF THE CHEST, PULMONARY EMBOLUS PROTOCOL CLINICAL HISTORY: Shortness of breath. Evaluate for pulmonary embolus. COMPARISON STUDY: Chest CT February 19, 2019. Chest radiograph performed earlier today. TECHNIQUE: Following IV administration of 120 mL of Optiray, helical axial images of the chest were o btained utilizing the pulmonary embolus protocol. Maximal intensity projections and sagittal and cor onal reformats were viewed on an independent 3D workstation. IV contrast was administered without co mplication. Automated exposure control was utilized for the study. A dose lowering technique was ut ilized adhering to the principles of ALARA. CT DOSE: 345.54 mGy.cm FINDINGS: Evaluation for pulmonary emboli is significantly compromised given respiratory motion bernice fact and suboptimal opacification. Apparent filling defects are likely due to mixing artifact. Howeve r, no pulmonary emboli are identified. There is moderate to marked cardiomegaly. Coronary artery calc ification is noted. No pericardial effusion. Small bilateral pleural effusions, right larger left, ar e noted. There is no pneumothorax. Bilateral lower lobe groundglass opacities favor atelectasis. Lung s are suboptimally assessed due to respiratory motion. There is no pneumothorax. There is no thoracic lymphadenopathy. No acute fracture or suspicious lesion is identified within visualized portions of the bony thorax. Old left diaphragmatic hernia is unchanged. A small pericecal fissural nodule within the right lower lobe is unchanged and prior CT. This is benign given stability. There is reflux of c ontrast into the IVC and hepatic veins. Mild dilatation of the ascending aorta, measuring 4.2 cm, at the level the main pulmonary artery is noted. The thoracic aorta is not opacified. IMPRESSION: 1. No pulmonary emboli identified although exam significantly compromised given respiratory motion ar tifact and suboptimal vascular opacification. Apparent filling defects are likely due to mixing artif act. 2. Small bilateral pleural effusions, right larger than left. 3. Moderate to marked cardiomegaly. 4. Bilateral lower lobe opacities which favor atelectasis. ACT 112: Negative or not required by law. Electronically signed by: Irving Hassan M.D. 05/25/2021 1:34 PM
[2021-05-25] MEDS ORDERED: NITROGLYCERIN 2% OINTMENT 30GM TUBE EXT STA (14:44)
[2021-05-25] MEDS ORDERED: FAMOTIDINE 20 MG TAB PO STA (14:53)
[2021-05-25] MEDS ORDERED: LOSARTAN POTASSIUM 50 MG TAB PO STA (14:53)
[2021-05-25] MEDS ORDERED: amLODIPine BESYLATE 5 MG TAB PO ONE (14:54)
[2021-05-25] MEDS ORDERED: METOPROLOL TARTRATE 25 MG TAB PO STA (14:56)
--- NOTE | 2021-05-25 15:00 | History & Physical Report ---
Date of Service May 25, 2021 Assessment & Plan (1) Chest pain, rule out acute myocardial infarction: Plan: High risk, concerning history and EKG changes suggestive of [place]. Serial troponins TTE Will avoid heparin IV drip as currently chest pain free and prior history of GI bleeding retroperitoneal hemorrhage Consult cardiology History of Present Illness Primary Care Provider: Nicole Quesada MD Allergies Allergy/AdvReac Type Severity Reaction Status Date / Time No Known Drug Allergies Allergy Verified 05/25/21 14:35 Home Medications Medication Instructions Recorded Confirmed Type aspirin 325 mg tablet,delayed 325 mg PO QAM 07/23/19 05/25/21 History release (Ecotrin) docusate sodium 50 mg capsule 50 mg PO BID PRN #60 cap 04/01/21 05/25/21 Rx (Colace Clear) finasteride 5 mg tablet (Proscar) 5 mg PO QAM 04/01/21 05/25/21 History sennosides 8.6 mg-docusate sodium 2 tab PO QAM PRN 04/01/21 05/25/21 History 50 mg tablet (Senokot-S) tamsulosin 0.4 mg capsule (Flomax) 0.8 mg PO HS #60 cap 04/08/21 05/25/21 Rx sulfamethoxazole 800 1 tab PO BID 7 Days #14 tab 05/15/21 05/25/21 Rx mg-trimethoprim 160 mg tablet (Bactrim DS) amlodipine 10 mg tablet 10 mg PO QAM 05/25/21 05/25/21 History beta-sitosterol 125 mg-vit D3 10 2 tab PO QAM 05/25/21 05/25/21 History mfb-[id number]-[id number] 250 mg tablet famotidine 10 mg tablet 20 mg PO QAM 05/25/21 05/25/21 History hydrochlorothiazide 25 mg tablet 25 mg PO QAM 05/25/21 05/25/21 History loperamide-simethicone 2 mg-125 mg 1 tab PO Q3H PRN 05/25/21 05/25/21 History tablet losartan 50 mg tablet 50 mg PO QAM 05/25/21 05/25/21 History Past Med/Surg History Medical History (Updated 05/25/21 @ 14:58 by Colby Zelaya MD) Benign essential hypertension Chronic hyponatremia COPD (chronic obstructive pulmonary disease) Diaphragmatic hernia Fall from motorized mobility scooter, initial encounter GERD without esophagitis Hypokalemia Hypomagnesemia Left rib fracture Left sided chest pain Macular degeneration Problem with literacy Rhabdomyolysis Surgical History Lower limb amputation status Family History Other Family history non-contributory Denies family history of Ovarian cancer Prostate cancer Myocardial infarction Breast cancer Colorectal cancer Social History Smoking Status: Current every day smoker Second Hand Exposure: Yes; Hx Alcohol Use: No Hx Substance Use: No Preferred Language: Maltese Communication Ability: Effective Doctor Assistant Required: No Beliefs That Will Affect Care: None marital status: / Current Living Situation: Family Current Living Situation Comment: son 47yo lives w pt current occupational status: retired Feels Safe at Home: Yes Dental Care, Regularly: No Seatbelt Use: always Sunscreen Use: No Assistive Devices: Glasses Results & Data Results & Data ([facility]) Vital Signs (Past 12 Hours) Vital Signs Pulse Resp BP Pulse Ox 05/25/21 12:51 97 05/25/21 12:45 98 05/25/21 12:30 58 L 20 98 05/25/21 12:00 92 H 30 H 174/85 H 100 05/25/21 11:40 82 25 H 100 05/25/21 11:33 79 24 178/106 H 100 PG Care Time/CCT Total # of Minutes Spent Total Time Spent with Patient: Total time spent is greater than 50% in coordination of care (as documented) at patient's floor/unit and/or counseling patient: Coding Diagnoses Chest pain, rule out acute myocardial infarction R07.9
--- NOTE | 2021-05-25 19:29 | Hospitalist Consultation ---
Date of Consultation May 25, 2021 Assessment & Plan (1) Chest pain, rule out acute myocardial infarction: Recommended admission as high risk, very concerning history and EKG changes suggestive of [place]. Initially patient was on board with this but then changed his mind and wished to be discharged against medical advice. Initial two troponins negative. He was given his usual BP medications due to BP 191/104 prior to his change in his decision to leave against medical advice. BP 171/74 on discharge. Discussed with the patient and his son. His current wishes to leave against medical advice are consistent with his longstanding wishes that he is ok with dying. He denies any suicidal ideation but reports when it is his time it is ok to go. He understands the risk of discharge including unstable angina, further heart attacks, cardiac arrest or . History of Present Illness Reason for Consultation: Admission for chest pain rule out MA Requesting Physician: Dr Chavez Attending Physician: Colby Zelaya MD History of Present Illness Byron Varela is an 85 year old male current smoker who presents to the ER with chest pain. He reports sudden onset chest pain, severity 10/10, substernal, associated diaphoresis and shortness of breath that occurred for a few minutes starting around 11am this morning. He was reportedly hypoxic by EMS however currently on room air here. He was given aspirin and nitroglycerin by EMS on route to the ER. He is chest pain free at the present time. He reports increasing frequency of chest pain episodes at rest over the last 2 days, lasting for minutes each time. He denies any orthopnea, PND, claudication or palpitations. In the ER EKG was concerning for lateral TWI which are new from April 05, 2021. He is in atrial fibrillation which is not new for him but he does not take anticoagulation for this (per prior notes this is due to prior life-threatening GI bleed, intramuscular hematomas and high falls risk per prior PCP notes). Initial troponin I negative. BP 191/104 however he reports not taking any of his usual medications today. Given initial concern for COVID-19 pneumonia he was given 10mg IV dexamethasone however subsequent workup was negative for this. He was referred to medicine for admission and ongoing management for chest pain rule out MA. Allergies Allergy/AdvReac Type Severity Reaction Status Date / Time No Known Drug Allergies Allergy Verified 05/25/21 14:35 Home Medications Medication Instructions Recorded Confirmed Type aspirin 325 mg tablet,delayed 325 mg PO QAM 07/23/19 05/25/21 History release (Ecotrin) docusate sodium 50 mg capsule 50 mg PO BID PRN #60 cap 04/01/21 05/25/21 Rx (Colace Clear) finasteride 5 mg tablet (Proscar) 5 mg PO QAM 04/01/21 05/25/21 History sennosides 8.6 mg-docusate sodium 2 tab PO QAM PRN 04/01/21 05/25/21 History 50 mg tablet (Senokot-S) tamsulosin 0.4 mg capsule (Flomax) 0.8 mg PO HS #60 cap 04/08/21 05/25/21 Rx sulfamethoxazole 800 1 tab PO BID 7 Days #14 tab 05/15/21 05/25/21 Rx mg-trimethoprim 160 mg tablet (Bactrim DS) amlodipine 10 mg tablet 10 mg PO QAM 05/25/21 05/25/21 History beta-sitosterol 125 mg-vit D3 10 2 tab PO QAM 05/25/21 05/25/21 History pry-pfnldbxz-hnrvlwvmx 250 mg tablet famotidine 10 mg tablet 20 mg PO QAM 05/25/21 05/25/21 History hydrochlorothiazide 25 mg tablet 25 mg PO QAM 05/25/21 05/25/21 History loperamide-simethicone 2 mg-125 mg 1 tab PO Q3H PRN 05/25/21 05/25/21 History tablet losartan 50 mg tablet 50 mg PO QAM 05/25/21 05/25/21 History Patient History Medical History (Updated 05/25/21 @ 16:21 by Nuno Chavez DO) Benign essential hypertension Chronic hyponatremia COPD (chronic obstructive pulmonary disease) Diaphragmatic hernia Fall from motorized mobility scooter, initial encounter GERD without esophagitis Hypokalemia Hypomagnesemia Left rib fracture Left sided chest pain Macular degeneration Problem with literacy Rhabdomyolysis Surgical History Lower limb amputation status Family History Other Family history non-contributory Denies family history of Ovarian cancer Prostate cancer Myocardial infarction Breast cancer Colorectal cancer Social History Smoking Status: Current every day smoker Tobacco Type: Cigarettes Second Hand Exposure: Yes; Hx Alcohol Use: No Hx Substance Use: No Preferred Language: Macanese Communication Ability: Effective Shoemaker Custom Required: No Beliefs That Will Affect Care: None marital status: / Current Living Situation: Family Current Living Situation Comment: son 47yo lives w pt current occupational status: retired Feels Safe at Home: Yes Dental Care, Regularly: No Seatbelt Use: always Sunscreen Use: No Assistive Devices: Glasses Review of Systems Review of Systems: All systems reviewed & are unremarkable except as noted in HPI & below Physical Exam Constitutional: + frail appearing and + disheveled; + not well nourished and no acute distress Eyes: + anicteric sclerae; normal pupil size ENMT: Mouth: + dry oral mucous membranes Respiratory: normal respiratory effort and + prolonged expiratory phase; no respiratory distress Auscultation: lungs clear to auscultation bilaterally Cardiovascular: Rate/Rhythm: regular rate and + irregularly irregular Heart Sounds: no murmur Extremities: normal capillary refill; no calf tenderness and no pedal edema Gastrointestinal (Abdomen): Inspection/Auscultation: normal bowel sounds Percussion/Palpation: abdomen soft; abdomen nontender, no guarding and abdomen not rigid Skin: no rashes, warm and dry Neurologic: moves all extremities and awake; not confused Speech / Cognition: + abnormal speech (difficulty finding the right words, he reports this is normal for him) Motor/Sensory: no tremor and no pronator drift Psychiatric: Orientation: alert, oriented to person, oriented to place and oriented to time Eye Contact: good eye contact Affect: euthymic affect Results & Data Results & Data ([facility]) Vital Signs (Past 12 Hours) Vital Signs Pulse Pulse Resp BP BP Pulse Ox 05/25/21 17:09 78 18 171/74 H 97 05/25/21 16:18 19 179/97 H 99 05/25/21 15:10 75 19 126/102 H 97 05/25/21 14:00 91 H 34 H 191/104 H 96 05/25/21 13:30 92 H 30 H 100 05/25/21 13:00 100 H 30 H 179/84 H 100 05/25/21 12:51 97 05/25/21 12:45 98 05/25/21 12:30 58 L 20 98 05/25/21 12:00 92 H 30 H 174/85 H 100 05/25/21 11:40 82 25 H 100 05/25/21 11:33 79 24 178/106 H 100 Laboratory Results Abnormal lab results 05/25/21 05/25/21 05/25/21 Range/Units 12:02 12:02 12:02 RBC 4.46 L (4.7-6.1) M/uL Hgb 12.2 L (14.0-18.0) g/dL Hct 37.9 L (42-52) % RDW Std Deviation 47.9 H (36.4-46.3) fL RDW Coeff of Casimiro 15.5 H (11.5-14.5) % Lymph # (Auto) 0.86 L (1.2-3.4) K/uL INR (0.9-1.1) D-Dimer 1190 H* (0-500) ug/L FEU Chloride 112 H (98-107) mmol/L Carbon Dioxide 20 L (21-32) mmol/L BUN 21 H (7-18) mg/dl BUN/Creatinine Ratio 20.1 H (10-20) Glucose 102 H (70-99) mg/dl Total Bilirubin 1.3 H (0.2-1) mg/dl Albumin 3.1 L (3.4-5.0) gm/dl Albumin/Globulin Ratio 0.8 L (0.9-2) Lipase 72 L (73-393) U/L 05/25/21 Range/Units 12:02 RBC (4.7-6.1) M/uL Hgb (14.0-18.0) g/dL Hct (42-52) % RDW Std Deviation (36.4-46.3) fL RDW Coeff of Casimiro (11.5-14.5) % Lymph # (Auto) (1.2-3.4) K/uL INR 1.2 H (0.9-1.1) D-Dimer (0-500) ug/L FEU Chloride (98-107) mmol/L Carbon Dioxide (21-32) mmol/L BUN (7-18) mg/dl BUN/Creatinine Ratio (10-20) Glucose (70-99) mg/dl Total Bilirubin (0.2-1) mg/dl Albumin (3.4-5.0) gm/dl Albumin/Globulin Ratio (0.9-2) Lipase (73-393) U/L Diagnostic Findings XR chest 1V portable CLINICAL HISTORY: Chest Pain COMPARISON STUDY: Chest radiograph April 05, 2021. FINDINGS: Moderate to marked cardiomegaly is similar to prior exam. There may be a trace right pleural effusion. Old left-sided rib fractures are noted. There is no evidence for pulmonary edema. Skinfold projects over the right chest. Minimal bibasilar opacities favor atelectasis. IMPRESSION: 1. Cardiomegaly without evidence for pulmonary edema. 2. Mild bibasilar opacities which favor atelectasis. 3. Suspected trace right pleural effusion. CT ANGIOGRAPHY OF THE CHEST, PULMONARY EMBOLUS PROTOCOL CLINICAL HISTORY: Shortness of breath. Evaluate for pulmonary embolus. COMPARISON STUDY: Chest CT February 19, 2019. Chest radiograph performed earlier today. TECHNIQUE: Following IV administration of 120 mL of Optiray, helical axial images of the chest were obtained utilizing the pulmonary embolus protocol. Maximal intensity projections and sagittal and coronal reformats were viewed on an independent 3D workstation. IV contrast was administered without complication. Automated exposure control was utilized for the study. A dose lowering technique was utilized adhering to the principles of ALARA. CT DOSE: 345.54 mGy.cm FINDINGS: Evaluation for pulmonary emboli is significantly compromised given respiratory motion artifact and suboptimal opacification. Apparent filling defects are likely due to mixing artifact. However, no pulmonary emboli are identified. There is moderate to marked cardiomegaly. Coronary artery calcification is noted. No pericardial effusion. Small bilateral pleural effusions, right larger left, are noted. There is no pneumothorax. Bilateral lower lobe groundglass opacities favor atelectasis. Lungs are suboptimally assessed due to respiratory motion. There is no pneumothorax. There is no thoracic lymphadenopathy. No acute fracture or suspicious lesion is identified within visualized portions of the bony thorax. Old left diaphragmatic hernia is unchanged. A small pericecal fissural nodule within the right lower lobe is unchanged and prior CT. This is benign given stability. There is reflux of contrast into the IVC and hepatic veins. Mild dilatation of the ascending aorta, measuring 4.2 cm, at the level the main pulmonary artery is noted. The thoracic aorta is not opacified. IMPRESSION: 1. No pulmonary emboli identified although exam significantly compromised given respiratory motion artifact and suboptimal vascular opacification. Apparent filling defects are likely due to mixing artifact. 2. Small bilateral pleural effusions, right larger than left. 3. Moderate to marked cardiomegaly. 4. Bilateral lower lobe opacities which favor atelectasis. Medications Administered ER Medications Given: Dexamethasone 10 mg IV ECG Indication: chest pain Rate (beats per minute): 77 Rhythm: atrial fibrillation Findings: + T-wave inversion (Lateral) Comparison ECG Date: from (April 05, 2021) Change: the following changes noted (TWI in lateral leads is new from prior) PG Care Time/CCT Total # of Minutes Spent Total Time Spent with Patient: Total time spent is greater than 50% in coordination of care (as documented) at patient's floor/unit and/or counseling patient: Coding Level of Care Code 22368 Office/OBS Consult Lvl 4 Diagnoses Chest pain, rule out acute myocardial infarction R07.9
--- NOTE | 2021-05-26 07:42 | Electrocardiogram Report ---
Test Reason : Blood Pressure : / mmHG Vent. Rate : 062 BPM Atrial Rate : 074 BPM P-R Int : 000 ms QRS Dur : 100 ms QT Int : 496 ms P-R-T Axes : 000 -08 241 degrees QTc Int : 503 ms Atrial fibrillation Minimal voltage criteria for LVH, may be normal variant Prolonged QT Abnormal ECG When compared with ECG of 25-MAY-2021 20:14, (unconfirmed) Previous ECG has undetermined rhythm, needs review Confirmed by Marquis Block ([id number]) on 05/26/2021 7:41:57 AM Referred By: REFERRED SELF Confirmed By:Arturo Block
--- NOTE | 2021-05-26 07:46 | Electrocardiogram Report ---
Test Reason : Blood Pressure : / mmHG Vent. Rate : 077 BPM Atrial Rate : 063 BPM P-R Int : 000 ms QRS Dur : 100 ms QT Int : 406 ms P-R-T Axes : 000 000 195 degrees QTc Int : 459 ms Atrial fibrillation Incomplete right bundle branch block Moderate voltage criteria for LVH, may be normal variant T wave abnormality, consider lateral ischemia Abnormal ECG When compared with ECG of 05-APR-2021 09:40, Nonspecific T wave abnormality now evident in Inferior leads T wave inversion now evident in Lateral leads Confirmed by Marquis Block ([id number]) on 05/26/2021 7:46:26 AM Referred By: REFERRED SELF Confirmed By:Arturo Block
== END 2021-05-25 17:17 | disposition left against medical advice (07) ==
LOC: ED 11:27 → EDINP 11:27

== ENCOUNTER 2021-05-25 20:07 | Inpatient (IN) ==
[2021-05-25] MEDS ORDERED: SODIUM CHLORIDE 0.9% 1000ML 1,000 ML IV ONE (20:18)
--- NOTE | 2021-05-25 20:30 | Emergency Department Note ---
Impression & Plan Cardiac arrest, Acute dehydration, Elevated lactic acid level, Hypothermia ED Provider Note NAME: TALISHA RIDER AGE: 85 SEX: M : 1935 ARRIVES VIA: Ambulance INFORMANT: [Patient][ems] ED PROVIDER(S): [Robin Viera MD] CHIEF COMPLAINT: Cardiac arrest HISTORY OF PRESENT ILLNESS: The patient is an 85-year-old male who presents after a presumed cardiac arrest. The patient was in our ER earlier today and was being admitted. He then decided to sign out AGAINST MEDICAL ADVICE. As he arrived home and was getting out of the car, he collapsed and as per his family, there was no pulse and he was not breathing. They began CPR. By the time EMS arrived, the patient had regained a pulse and was breathing. The patient currently denies any pain, he denies feeling short of breath. He states he feels numb. The patient's work-up earlier today showed some EKG changes but his troponin x2 was unremarkable. Chest CT was negative for PE. Of note, the patient had elected to be a DNR with his hospitalization. He confirmed to me at the bedside that he wants to remain a DNR. REVIEW OF SYSTEMS: See HPI for pertinent positives and negatives. A total of ten systems were reviewed and were otherwise negative. PMHx/PSHx: See Below SOCIAL HISTORY: See Below. PHYSICAL EXAM: GENERAL: Patient is in no acute distress. HEENT: No acute trauma, normocephalic atraumatic, mucous membranes dry, no nasal congestion, no scleral icterus. NECK: No stridor, no adenopathy, no meningismus, trachea is midline. LUNGS: Clear to auscultation bilaterally when listening anterior no wheeze, no rhonchi, breath sounds equal. He does have an increased respiratory rate. HEART: Distant heart tones, I cannot really assess for murmurs. Rate is normal but the rhythm is irregular. ABDOMEN: Soft, nontender, bowel sounds positive, no hernias, no peritonitis. EXTREMITIES: No cyanosis or edema. 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 Some mottling of his left lower extremity was noted. His extremities were cool to touch. NEUROLOGIC: Awake and alert, no facial droop, no acute motor or sensory deficits, no focal weakness. SKIN: No rash, no jaundice, no diaphoresis. Mottled extremities. Skin is cool to the touch. DIFFERENTIAL DIAGNOSIS: Cardiac ischemia, cardiac arrest, aortic dissection, pulmonary embolism, pneumothorax, pneumonia, pericarditis, myocarditis, esophageal rupture, GERD, cholecystitis, pancreatitis, anemia, dysrhythmia, electrolyte imbalance, dehydration, as well as other pathologies. EMERGENCY DEPARTMENT COURSE/PROCEDURES: ECG: Indication was cardiac arrest. The ECG shows what appears to be atrial fibrillation with a rate of 62. There are inverted T waves laterally and some biphasic T waves in the anterior leads. No concerning ST elevation. No PVCs. T waves are flattened in the inferior leads. QTC is 503. Compared to an ECG from earlier today, there is no real significant change. Continuous Cardiac Monitoring: An order was placed for continuous cardiac monitoring. The monitor shows a rate of 60 with atrial fibrillation. Critical Care Note: I have personally spent 51 minutes of critical care time in the direct management of this patient. This includes bedside care, interpretation of diagnostic studies, and testing, discussion with consultants, patient, and family members, and other required patient management activities. This 51 minutes is in excess of all separately billable procedures. MEDICAL DECISION MAKING: There is no leukocytosis. There is a normal hemoglobin and platelet count. Renal panel testing does show some dehydration with a rise to the creatinine at 1.6. There was an anion gap at 16. Some acidosis was suggested with a CO2 of 15. Lactic acid level was quite elevated at around 9. Some subtle liver enzyme elevations were seen. No pancreatitis. The patient appeared to be in a euthyroid state. Urinalysis did not show infection. Chest x-ray showed some cardiomegaly, no obvious infiltrate. ECG showed atrial fibrillation with some T wave inversions. The EKG looked similar to the earlier ECG performed today. Cardiac enzyme testing x1 is not elevated. On exam, the patient appeared somewhat mottled, his skin was cool to the touch. He was hypothermic. The patient was undressed. He was placed in a willi hugger to help with rewarmin g. He received IV saline for hydration. He was given IV cefepime as empiric antibiotic coverage. At this point, the exact reason for the collapse/arrest is unclear. Dysrhythmia, DC, infection are possibilities. Further care in the hospital is warranted. I did speak with the patient, he does want to remain a DNR. I did speak with case management, the on-call hospitalist was consulted. Past Med/Surg History Medical History Benign essential hypertension Chronic hyponatremia COPD (chronic obstructive pulmonary disease) Diaphragmatic hernia Fall from motorized mobility scooter, initial encounter GERD without esophagitis Hypokalemia Hypomagnesemia Left rib fracture Left sided chest pain Macular degeneration Problem with literacy Rhabdomyolysis Surgical History Lower limb amputation status Family History Other Family history non-contributory Denies family history of Ovarian cancer Prostate cancer Myocardial infarction Breast cancer Colorectal cancer Social History Smoking Status: Current every day smoker Tobacco Type: Cigarettes Second Hand Exposure: Yes; Hx Alcohol Use: No Hx Substance Use: No Preferred Language: Ghanaian Communication Ability: Effective Skein Dyer Required: No Beliefs That Will Affect Care: None marital status: / Current Living Situation: Family Current Living Situation Comment: son 47yo lives w pt current occupational status: retired Feels Safe at Home: Yes Dental Care, Regularly: No Seatbelt Use: always Sunscreen Use: No Assistive Devices: Glasses Allergies Allergies Allergy/AdvReac Type Severity Reaction Status Date / Time No Known Drug Allergies Allergy Verified 05/25/21 14:35 Home Meds Home Medications Medication Instructions Recorded Confirmed aspirin 325 mg tablet,delayed 325 mg PO QAM 07/23/19 05/25/21 release (Ecotrin) finasteride 5 mg tablet (Proscar) 5 mg PO QAM 04/01/21 05/25/21 sennosides 8.6 mg-docusate sodium 2 tab PO QAM PRN 04/01/21 05/25/21 50 mg tablet (Senokot-S) amlodipine 10 mg tablet 10 mg PO QAM 05/25/21 05/25/21 beta-sitosterol 125 mg-vit D3 10 2 tab PO QAM 05/25/21 05/25/21 bdo-[id number]-[id number] 250 mg tablet famotidine 10 mg tablet 20 mg PO QAM 05/25/21 05/25/21 hydrochlorothiazide 25 mg tablet 25 mg PO QAM 05/25/21 05/25/21 loperamide-simethicone 2 mg-125 mg 1 tab PO Q3H PRN 05/25/21 05/25/21 tablet losartan 50 mg tablet 50 mg PO QAM 05/25/21 05/25/21 Previous Rx's Medication Instructions Recorded docusate sodium 50 mg capsule 50 mg PO BID PRN #60 cap 04/01/21 (Colace Clear) tamsulosin 0.4 mg capsule (Flomax) 0.8 mg PO HS #60 cap 04/08/21 sulfamethoxazole 800 1 tab PO BID 7 Days #14 tab 05/15/21 mg-trimethoprim 160 mg tablet (Bactrim DS) Results & Data (ED) Vital Signs Vital Signs - 24 hr 05/25/21 20:11 05/25/21 20:20 05/25/21 20:35 Temperature 34.2 C L Temperature Source Rectal Pulse Rate 60 Pulse Rate [Apical] Pulse Rhythm [Apical] Pulse Strength [Apical] Respiratory Rate 30 H Respiratory Effort / Characteristics Non-Labored Non-Labored Respiratory Depth Normal Respiratory Pattern Regular Blood Pressure 182/85 H Blood Pressure [Left Arm] Blood Pressure Mean 117 Blood Pressure Mean [Left Arm] Blood Pressure Position Lying Blood Pressure Position [Left Arm] Pulse Oximetry 100 Oxygen Delivery Method Nasal Cannula Nasal Cannula Oxygen Flow Rate 2 100 Sepsis Recent Fever Within 48 Hours No Sepsis New/Unexplained Change in Mental Status No Sepsis Action Taken by Nursing No Action Required 05/25/21 22:03 Temperature Temperature Source Pulse Rate Pulse Rate [Apical] 63 Pulse Rhythm [Apical] Regular Pulse Strength [Apical] Normal Respiratory Rate 20 Respiratory Effort / Characteristics Non-Labored Spontaneous Respiratory Depth Normal Respiratory Pattern Regular Blood Pressure Blood Pressure [Left Arm] 153/78 H Blood Pressure Mean Blood Pressure Mean [Left Arm] 103 Blood Pressure Position Blood Pressure Position [Left Arm] Lying Pulse Oximetry 99 Oxygen Delivery Method Nasal Cannula Oxygen Flow Rate 3 Sepsis Recent Fever Within 48 Hours Sepsis New/Unexplained Change in Mental Status Sepsis Action Taken by [facility] Medications Current Medication List: was personally reviewed by me Laboratory Data Attestation: I reviewed the patient's lab results. Result diagrams: 05/25/21 20:25 05/25/21 20:25 Lab Results 05/25/21 05/25/21 05/25/21 Range/Units 20:25 20:25 20:25 WBC 4.21 L (4.8-10.8) K/uL RBC 5.13 (4.7-6.1) M/uL Hgb 14.2 (14.0-18.0) g/dL Hct 44.8 (42-52) % MCV 87.3 (80-100) fL MCH 27.7 (25-34) pg MCHC 31.7 L (32-36) g/dL RDW Std Deviation 50.6 H (36.4-46.3) fL RDW Coeff of Casimiro 15.7 H (11.5-14.5) % Plt Count 254 (130-400) K/uL MPV 9.6 (7.4-10.4) fL Immature Gran % (Auto) 1.0 % Neut % (Auto) 88.6 % Lymph % (Auto) 9.5 % Island % (Auto) 0.5 % Eos % (Auto) 0.2 % Baso % (Auto) 0.2 % Neut # (Auto) 3.73 (1.4-6.5) K/uL Lymph # (Auto) 0.40 L (1.2-3.4) K/uL Island # (Auto) 0.02 L (0.11-0.59) K/uL Eos # (Auto) 0.01 (0-0.5) K/uL Baso # (Auto) 0.01 (0-0.2) K/uL Immature Gran # (Auto) 0.04 H (0.00-0.02) K/uL Sodium 140 (136-145) mmol/L Potassium 4.8 (3.5-5.1) mmol/L Chloride 109 H (98-107) mmol/L Carbon Dioxide 15 L (21-32) mmol/L Anion Gap 16.0 H (3-11) BUN 25 H (7-18) mg/dl Creatinine 1.67 H D (0.6-1.4) mg/dl Est Cr Clr Drug Dosing 27.5 ml/min Est GFR ( Amer) 42.3 ml/min Est GFR (Non-Af Amer) 36.5 ml/min BUN/Creatinine Ratio 15.1 (10-20) Glucose 213 H (70-99) mg/dl Lactate 9.2 H* (0.4-2.0) mmol/L Calcium 9.0 (8.5-10.1) mg/dl Magnesium 2.5 H (1.8-2.4) mg/dl Total Bilirubin 2.0 H D (0.2-1) mg/dl AST 43 H (15-37) U/L ALT 35 (12-78) U/L Alkaline Phosphatase 128 H (45-117) U/L Troponin I < 0.015 (0-0.045) ng/ml Total Protein 8.0 (6.4-8.2) gm/dl Albumin 3.4 (3.4-5.0) gm/dl Globulin 4.6 H (2.5-4.0) gm/dl Albumin/Globulin Ratio 0.7 L (0.9-2) Lipase 97 (73-393) U/L TSH 3.150 (0.300-4.500) uIu/ml Urine Color Urine Appearance (Clear) Urine pH (4.5-7.5) Ur Specific Jeffrey (1.000-1.030) Urine Protein (Negative) Urine Glucose (UA) (Negative) Urine Ketones (Negative) Urine Blood (Negative) Urine Nitrite (Negative) Urine Bilirubin (Negative) Urine Urobilinogen (Negative) Ur Leukocyte Esterase (Negative) Urine WBC (Auto) (0-5) /hpf Urine RBC (Auto) (0-4) /hpf U Hyaline Cast (Auto) (0-5) /lpf U Epithel Cells (Auto) (0-5) /lpf Urine Bacteria (Auto) (Negative) 05/25/21 05/25/21 Range/Units 21:55 22:25 WBC (4.8-10.8) K/uL RBC (4.7-6.1) M/uL Hgb (14.0-18.0) g/dL Hct (42-52) % MCV (80-100) fL MCH (25-34) pg MCHC (32-36) g/dL RDW Std Deviation (36.4-46.3) fL RDW Coeff of Casimiro (11.5-14.5) % Plt Count (130-400) K/uL MPV (7.4-10.4) fL Immature Gran % (Auto) % Neut % (Auto) % Lymph % (Auto) % Island % (Auto) % Eos % (Auto) % Baso % (Auto) % Neut # (Auto) (1.4-6.5) K/uL Lymph # (Auto) (1.2-3.4) K/uL Island # (Auto) (0.11-0.59) K/uL Eos # (Auto) (0-0.5) K/uL Baso # (Auto) (0-0.2) K/uL Immature Gran # (Auto) (0.00-0.02) K/uL Sodium (136-145) mmol/L Potassium (3.5-5.1) mmol/L Chloride (98-107) mmol/L Carbon Dioxide (21-32) mmol/L Anion Gap (3-11) BUN (7-18) mg/dl Creatinine (0.6-1.4) mg/dl Est Cr Clr Drug Dosing ml/min Est GFR ( Amer) ml/min Est GFR (Non-Af Amer) ml/min BUN/Creatinine Ratio (10-20) Glucose (70-99) mg/dl Lactate 6.0 H* (0.4-2.0) mmol/L Calcium (8.5-10.1) mg/dl Magnesium (1.8-2.4) mg/dl Total Bilirubin (0.2-1) mg/dl AST (15-37) U/L ALT (12-78) U/L Alkaline Phosphatase (45-117) U/L Troponin I (0-0.045) ng/ml Total Protein (6.4-8.2) gm/dl Albumin (3.4-5.0) gm/dl Globulin (2.5-4.0) gm/dl Albumin/Globulin Ratio (0.9-2) Lipase (73-393) U/L TSH (0.300-4.500) uIu/ml Urine Color Dark Yellow Urine Appearance Clear (Clear) Urine pH 5.0 (4.5-7.5) Ur Specific Jeffrey 1.032 H (1.000-1.030) Urine Protein 3+ H (Negative) Urine Glucose (UA) Negative (Negative) Urine Ketones Negative (Negative) Urine Blood Negative (Negative) Urine Nitrite Negative (Negative) Urine Bilirubin Negative (Negative) Urine Urobilinogen Negative (Negative) Ur Leukocyte Esterase Trace H (Negative) Urine WBC (Auto) 1-5 (0-5) /hpf Urine RBC (Auto) 0-4 (0-4) /hpf U Hyaline Cast (Auto) 1-5 (0-5) /lpf U Epithel Cells (Auto) 5-10 H (0-5) /lpf Urine Bacteria (Auto) Negative (Negative) Administered Medications Discontinued Medications Sodium Chloride (Nss 1000ml) 1,000 mls @ 999 mls/hr IV .Q1H1M ONE Stop: 05/25/21 21:18 Last Infusion: 05/25/21 22:34 Dose: 0 mls/hr Documented by: [id number] Admin: 05/25/21 20:24 Dose: 999 mls/hr Documented by: [id number] Cefepime HCl (Maxipime) 2,000 mg in 20 mls @ 5 mls/min IV NOW STA; Protocol Stop: 05/25/21 20:40 Last Admin: 05/25/21 21:11 Dose: 5 mls/min Documented by: [id number] Sodium Chloride (Nss 1000ml) 1,000 mls @ 999 mls/hr IV .Q1H1M KAREN Stop: 05/25/21 22:48 Last Admin: 05/25/21 22:39 Dose: 999 mls/hr Documented by: [id number] Imaging Data Attestation: I personally reviewed and interpreted this imaging study as follows: My Impression: Chest x-ray: There is some cardiomegaly. No obvious infiltrate, no pneumothorax. Discharge Plan Visit Data Chief Complaint: Chest Pain Stated Complaint: "post cardiac arrest" ED Provider: Robin Viera ED Midlevel Provider: Louie Kelsey Discharge Problem: Cardiac arrest, Acute dehydration, Elevated lactic acid level, Hypothermia Patient Disposition: Admitted As Inpatient Condition: Serious Forms Stand Alone Forms: My [facility] Prescriptions Prescriptions: No Action sulfamethoxazole-trimethoprim [Bactrim DS] 800-160 mg tablet 1 tab PO BID 7 Days Qty: 14 RF: 0 aspirin [Ecotrin] 325 mg tablet,delayed release (DR/EC) 325 mg PO QAM RF: 0 sennosides-docusate sodium [Senokot-S] 8.6-50 mg tablet 2 tab PO QAM PRN (Reason: constipation) RF: 0 finasteride [Proscar] 5 mg tablet 5 mg PO QAM RF: 0 Colace Clear 50 mg capsule 50 mg PO BID PRN (Reason: constipation) Qty: 60 RF: 0 tamsulosin [Flomax] 0.4 mg capsule 0.8 mg PO HS Qty: 60 RF: 3 losartan 50 mg tablet 50 mg PO QAM RF: 0 famotidine 10 mg Tablet 20 mg PO QAM RF: 0 amlodipine 10 mg tablet 10 mg PO QAM RF: 0 hydrochlorothiazide 25 mg tablet 25 mg PO QAM RF: 0 loperamide-simethicone 2-125 mg Tablet 1 tab PO Q3H PRN (Reason: Gi Upset) RF: 0 dckm-jvcdp-D1-minerals-cranber 125 mg-10 mcg- 250 mg Tablet 2 tab PO QAM RF: 0 Referrals Referrals: Nicole Quesada MD [Primary Care Provider] - Discharge Problem: Hypothermia Qualifiers: Encounter type: initial encounter Qualified Code(s): T68.XXXA - Hypothermia, initial encounter
[2021-05-25 20:36] LABS: Basophils # (auto) 0.01 K/uL (0-0.2); Basophils % (auto) 0.2 %; Eosinophils # (auto) 0.01 K/uL (0-0.5); Eosinophils % (auto) 0.2 %; Hematocrit (blood only) 44.8 % (42-52); Hemoglobin 14.2 g/dL (14.0-18.0); Immature Granulocytes # (auto) 0.04 K/uL (0.00-0.02); Lymphocytes % (auto) 9.5 %; Mean Corpuscular Hemoglobin 27.7 pg (25-34); Mean Corpuscular Hgb Conc 31.7 g/dL (32-36); Mean Corpuscular Volume 87.3 fL (80-100); Mean Platelet Volume 9.6 fL (7.4-10.4); Monocytes # (auto) 0.02 K/uL (0.11-0.59); Monocytes % (auto) 0.5 %; Neutrophils # (auto) 3.73 K/uL (1.4-6.5); Neutrophils % (auto) 88.6 %; Platelet Count 254 K/uL (130-400); RDW Coefficient of Variation 15.7 % (11.5-14.5); RDW Standard Deviation 50.6 fL (36.4-46.3); Red Blood Count 5.13 M/uL (4.7-6.1); White Blood Count 4.21 K/uL (4.8-10.8)
[2021-05-25] MEDS ORDERED: CEFEPIME 2,000 MG/20 ML VIAL IV STA (20:37)
[2021-05-25 20:54] LABS: Alanine Aminotransferase 35 U/L (12-78); Albumin Level 3.4 gm/dl (3.4-5.0); Aspartate Aminotransferase 43 U/L (15-37); BUN Creatinine Ratio 15.1 (10-20); Blood Urea Nitrogen 25 mg/dl (7-18); Carbon Dioxide 15 mmol/L (21-32); Chloride 109 mmol/L (98-107); Creatinine Clr Calc Pharmacy 27.5 ml/min; Est GFR (African American) 42.3 ml/min; Est GFR (Non-African American) 36.5 ml/min; Glucose 213 mg/dl (70-99); Lipase 97 U/L (73-393); Magnesium 2.5 mg/dl (1.8-2.4); Potassium 4.8 mmol/L (3.5-5.1); Sodium 140 mmol/L (136-145)
[2021-05-25 21:06] LABS: Albumin Globulin Ratio 0.7 (0.9-2); Alkaline Phosphatase 128 U/L (45-117); Globulin 4.6 gm/dl (2.5-4.0); Troponin I < 0.015 ng/ml (0-0.045)
[2021-05-25] MEDS ORDERED: SODIUM CHLORIDE 0.9% 1000ML 1,000 ML IV SCH (21:48)
--- NOTE | 2021-05-25 21:51 | History & Physical Report ---
Date of Service May 25, 2021 Assessment & Plan (1) Syncope and collapse: Plan: Syncope and collapse- Initially there was concern about cardiac arrest, as patient did undergo CPR by family. With normal troponins, and no significant EKG changes, it is more likely that the patient collapsed from severe dehydration, as opposed to having undergone a cardiac arrest Patient received 2 L normal saline in the ED via bolus, then admitted on NSS at 80 mils per hour NPO except essential medications, until orally hydrated enough to swallow. Will start on full liquid diet in the a.m. (2) Acute dehydration: Plan: See above (3) Hypothermia: Plan: Placed on IV warming blanket while in the ED, and will be continued via protocol until normal body temperature is maintained (4) BPH w urinary obs/LUTS: Plan: BPH with LUTS/prostatitis/UTI- Follow urine culture and sensitivity Continue cefepime IV begun in the ED Continue tamsulosin 0.8 mg at bedtime, and finasteride 5 mg every morning (5) Acute UTI (urinary tract infection): Plan: See above (6) Acute kidney injury: Plan: Creatinine 1.67 upon admission, with baseline 1.03 Rehydrate as noted above, recheck laboratories in a.m. (7) Atrial fibrillation: Plan: Atrial fibrillation/hypertension- Continue amlodipine. Hold HCTZ and losartan due to TREY (8) GERD without esophagitis: Plan: Resume famotidine in a.m. (9) COPD (chronic obstructive pulmonary disease): Plan: DuoNebs every 2 hours as needed History of Present Illness Chief Complaint: The patient was brought to the emergency department after an episode where he collapsed getting out of his car as he was arriving home after leaving the [facility] AGAINST MEDICAL ADVICE earlier in the day today Primary Care Provider: Nicole Quesada MD The patient is an 85-year-old male with a past medical history including urinary tract infection, BPH with LUTS, weakness, fatigue, confusion, insomnia, TREY, chronic anemia, rhabdomyolysis, atrial fibrillation, hypertension, COPD, GERD without esophagitis, macular degeneration, problem with literacy, and right BKA. The patient had been assessed earlier in the day in the ED, with concerns regarding EKG changes with normal troponin x2, and a chest CT that was negative for PE. He was advised to stay in the hospital for further work-up, however, he wanted to go home, and was discharged AGAINST MEDICAL ADVICE. His son was driving him home, and as he was getting out of the car at his house, he collapsed, reportedly there was no pulse and he was not breathing, and they began CPR. By the time EMS had arrived, the patient was found to have a pulse and was breathing. He was brought back into the emergency department, and work-up was performed. Patient has had 3 normal troponins, and stable EKG changes. The patient appeared to be acutely dehydrated, had acute kidney injury with creatinine 1.67, and was felt likely to have a urinary tract infection. He was thus presented to the [facility] hospitalist service for admission this evening. Allergies Allergy/AdvReac Type Severity Reaction Status Date / Time No Known Drug Allergies Allergy Verified 05/25/21 14:35 Home Medications Medication Instructions Recorded Confirmed Type aspirin 325 mg tablet,delayed 325 mg PO QAM 07/23/19 05/25/21 History release (Ecotrin) docusate sodium 50 mg capsule 50 mg PO BID PRN #60 cap 04/01/21 05/25/21 Rx (Colace Clear) finasteride 5 mg tablet (Proscar) 5 mg PO QAM 04/01/21 05/25/21 History sennosides 8.6 mg-docusate sodium 2 tab PO QAM PRN 04/01/21 05/25/21 History 50 mg tablet (Senokot-S) tamsulosin 0.4 mg capsule (Flomax) 0.8 mg PO HS #60 cap 04/08/21 05/25/21 Rx sulfamethoxazole 800 1 tab PO BID 7 Days #14 tab 05/15/21 05/25/21 Rx mg-trimethoprim 160 mg tablet (Bactrim DS) amlodipine 10 mg tablet 10 mg PO QAM 05/25/21 05/25/21 History beta-sitosterol 125 mg-vit D3 10 2 tab PO QAM 05/25/21 05/25/21 History qwd-dttewzlz-lewkubozm 250 mg tablet famotidine 10 mg tablet 20 mg PO QAM 05/25/21 05/25/21 History hydrochlorothiazide 25 mg tablet 25 mg PO QAM 05/25/21 05/25/21 History loperamide-simethicone 2 mg-125 mg 1 tab PO Q3H PRN 05/25/21 05/25/21 History tablet losartan 50 mg tablet 50 mg PO QAM 05/25/21 05/25/21 History Past Med/Surg History Medical History (Updated 05/26/21 @ 01:28 by Simon Cherry MD) Benign essential hypertension Chronic hyponatremia COPD (chronic obstructive pulmonary disease) Diaphragmatic hernia Fall from motorized mobility scooter, initial encounter GERD without esophagitis Hypokalemia Hypomagnesemia Left rib fracture Left sided chest pain Macular degeneration Problem with literacy Rhabdomyolysis Surgical History Lower limb amputation status Family History Other Family history non-contributory Denies family history of Ovarian cancer Prostate cancer Myocardial infarction Breast cancer Colorectal cancer Social History Smoking Status: Current every day smoker Tobacco Type: Cigarettes Second Hand Exposure: Yes; Hx Alcohol Use: No Hx Substance Use: No Preferred Language: Icelandic Communication Ability: Effective Ground Hand Required: No Beliefs That Will Affect Care: None marital status: / Current Living Situation: Family Current Living Situation Comment: son 47yo lives w pt current occupational status: retired Feels Safe at Home: Yes Dental Care, Regularly: No Seatbelt Use: always Sunscreen Use: No Assistive Devices: Glasses Review of Systems Review of Systems: The patient is not able to give information regarding HPI or review of systems due to confusion Physical Exam Physical Exam: The patient is awake, alert and oriented 3, well developed and well nourished, normocephalic and atraumatic, lying in bed and in no acute distress. HEENT--PERRL, EOMI, mucous membranes and oropharynx very dry. Neck--supple. No JVD. No bruits. Thyroid normal, trachea midline, no adenopathy. Heart--normal S1 and S2. No murmurs, rubs or gallops. Lungs--decreased breath sounds throughout. No respiratory distress, no accessory muscle use. Abdomen--normal bowel sounds and soft. Nontender. Nondistended, no hernias or masses, no organomegaly. Extremities--no cyanosis or clubbing. No edema. Dermatologic--skin is very dry Neurologic--cranial nerves II through XII grossly intact. Rheumatologic--normal range of motion. Psychiatric--confusion. Results & Data Results & Data ([facility]) Vital Signs (Past 12 Hours) Vital Signs Temp Pulse Resp BP Pulse Ox 05/25/21 20:20 34.2 C L 05/25/21 20:11 60 30 H 182/85 H 100 Laboratory Results Laboratory Results WBC 4.21 K/uL (4.8-10.8) L 05/25/21 20: RBC 5.13 M/uL (4.7-6.1) 05/25/21 20:25 Hgb 14.2 g/dL (14.0-18.0) 05/25/21 20: Hct 44.8 % (42-52) 05/25/21 20: MCV 87.3 fL (80-100) 05/25/21 20: MCH 27.7 pg (25-34) 05/25/21 20: MCHC 31.7 g/dL (32-36) L 05/25/21 20: RDW Std Deviation 50.6 fL (36.4-46.3) H 05/25/21 20: RDW Coeff of Casimiro 15.7 % (11.5-14.5) H 05/25/21 20: Plt Count 254 K/uL (130-400) 05/25/21 20:25 MPV 9.6 fL (7.4-10.4) 05/25/21 20: Immature Gran % (Auto) 1.0 % 05/25/21: Neut % (Auto) 88.6 % 05/25/21: Lymph % (Auto) 9.5 % 05/25/21 20:25 [place] % (Auto) 0.5 % 05/25/21 20:25 Eos % (Auto) 0.2 % 05/25/21 20:25 Baso % (Auto) 0.2 % 05/25/21 20: Neut # (Auto) 3.73 K/uL (1.4-6.5) 05/25/21 20:25 Lymph # (Auto) 0.40 K/uL (1.2-3.4) L 05/25/21 20:25 [place] # (Auto) 0.02 K/uL (0.11-0.59) L 05/25/21 20:25 Eos # (Auto) 0.01 K/uL (0-0.5) 05/25/21 20:25 Baso # (Auto) 0.01 K/uL (0-0.2) 05/25/21 20: Immature Gran # (Auto) 0.04 K/uL (0.00-0.02) H 05/25/21 20:25 Sodium 140 mmol/L (136-145) 05/25/21 20:25 Potassium 4.8 mmol/L (3.5-5.1) 05/25/21 20: Chloride 109 mmol/L (98-107) H 05/25/21 20: Carbon Dioxide 15 mmol/L (21-32) L 05/25/21 20: Anion Gap 16.0 (3-11) H 05/25/21 20:25 BUN 25 mg/dl (7-18) H 05/25/21 20: Creatinine 1.67 mg/dl (0.6-1.4) H D 05/25/21 20:25 Est Cr Clr Drug Dosing 27.5 ml/min 05/25/21 20:25 Est GFR ( Amer) 42.3 ml/min 05/25/21 20:25 Est GFR (Non-Af Amer) 36.5 ml/min 05/25/21 20:25 BUN/Creatinine Ratio 15.1 (10-20) 05/25/21 20: Glucose 213 mg/dl (70-99) H 05/25/21 20: Lactate 6.0 mmol/L (0.4-2.0) H* 05/25/21 22:25 Calcium 9.0 mg/dl (8.5-10.1) 05/25/21 20: Magnesium 2.5 mg/dl (1.8-2.4) H 05/25/21 20:25 Total Bilirubin 2.0 mg/dl (0.2-1) H D 05/25/21 20:25 AST 43 U/L (15-37) H 05/25/21 20:25 ALT 35 U/L (12-78) 05/25/21 20:25 Alkaline Phosphatase 128 U/L (45-117) H 05/25/21 20:25 Troponin I < 0.015 ng/ml (0-0.045) 05/25/21 20:25 Total Protein 8.0 gm/dl (6.4-8.2) 05/25/21 20: Albumin 3.4 gm/dl (3.4-5.0) 05/25/21 20: Globulin 4.6 gm/dl (2.5-4.0) H 05/25/21 20: Albumin/Globulin Ratio 0.7 (0.9-2) L 05/25/21 20: Lipase 97 U/L (73-393) 05/25/21 20: TSH 3.150 uIu/ml (0.300-4.500) 05/25/21 20: Urine Color Dark Yellow 05/25/21 21:55 Urine Appearance Clear (Clear) 05/25/21 21:55 Urine pH 5.0 (4.5-7.5) 05/25/21 21:55 Ur Specific [place] 1.032 (1.000-1.030) H 05/25/21 21:55 Urine Protein 3+ (Negative) H 05/25/21 21:55 Urine Glucose (UA) Negative (Negative) 05/25/21 21:55 Urine Ketones Negative (Negative) 05/25/21 21:55 Urine Blood Negative (Negative) 05/25/21 21:55 Urine Nitrite Negative (Negative) 05/25/21 21:55 Urine Bilirubin Negative (Negative) 05/25/21 21:55 Urine Urobilinogen Negative (Negative) 05/25/21 21:55 Ur Leukocyte Esterase Trace (Negative) H 05/25/21 21:55 Urine WBC (Auto) 1-5 /hpf (0-5) 05/25/21 21:55 Urine RBC (Auto) 0-4 /hpf (0-4) 05/25/21 21:55 U Hyaline Cast (Auto) 1-5 /lpf (0-5) 05/25/21 21:55 U Epithel Cells (Auto) 5-10 /lpf (0-5) H 05/25/21 21:55 Urine Bacteria (Auto) Negative (Negative) 05/25/21 21:55 Diagnostic Findings [facility], [place] [phone] CT Scan Report Patient:TALISHA RUIZ Admit Date:05/25/21 MR#:[id number] Address1:[address] [facility] Acct ID:[id number] Address2: Date:1935 [facility] Zip:[place] [address] Age:85 Location:ED Sex:M Room/Bed: Att Phy: Diagnosis:CHEST PAIN Adela Phy:Nicole Quesada MD Service Date:05/25/21 [facility] Phy: Interpreting Phy:Irving Hassan MDAdmit Phy: Ordering Phy:Nuno Chavez DO cc: ~ CT ANGIOGRAPHY OF THE CHEST, PULMONARY EMBOLUS PROTOCOL CLINICAL HISTORY: Shortness of breath. Evaluate for pulmonary embolus. COMPARISON STUDY: Chest CT February 19, 2019. Chest radiograph performed earlier today. TECHNIQUE: Following IV administration of 120 mL of Optiray, helical axial images of the chest were obtained utilizing the pulmonary embolus protocol. Maximal intensity projections and sagittal and coronal reformats were viewed on an independent 3D workstation. IV contrast was administered without complication. Automated exposure control was utilized for the study. A dose lowering technique was utilized adhering to the principles of ALARA. CT DOSE: 345.54 mGy.cm FINDINGS: Evaluation for pulmonary emboli is significantly compromised given respiratory motion artifact and suboptimal opacification. Apparent filling defects are likely due to mixing artifact. However, no pulmonary emboli are identified. There is moderate to marked cardiomegaly. Coronary artery calcification is noted. No pericardial effusion. Small bilateral pleural effusions, right larger left, are noted. There is no pneumothorax. Bilateral lower lobe groundglass opacities favor atelectasis. Lungs are suboptimally assessed due to respiratory motion. There is no pneumothorax. There is no thoracic lymphadenopathy. No acute fracture or suspicious lesion is identified within visualized portions of the bony thorax. Old left diaphragmatic hernia is unchanged. A small pericecal fissural nodule within the right lower lobe is unchanged and prior CT. This is benign given stability. There is reflux of contrast into the IVC and hepatic veins. Mild dilatation of the ascending aorta, measuring 4.2 cm, at the level the main pulmonary artery is noted. The thoracic aorta is not opacified. IMPRESSION: 1. No pulmonary emboli identified although exam significantly compromised given respiratory motion artifact and suboptimal vascular opacification. Apparent filling defects are likely due to mixing artifact. 2. Small bilateral pleural effusions, right larger than left. 3. Moderate to marked cardiomegaly. 4. Bilateral lower lobe opacities which favor atelectasis. ACT 112: Negative or not required by law. Electronically signed by: Irving Hassan M.D. 05/25/2021 1:34 PM Dictated:05/25/21 1325 Transcribed: 05/25/21 1325 Code Status & VTE Plan Code Status DNR/DNI VTE Prophylaxis Plan VTE Prophylaxis will be ordered: Yes PG Care Time/CCT Total # of Minutes Spent Total Time Spent with Patient: Total time spent is greater than 50% in coordination of care (as documented) at patient's floor/unit and/or counseling patient: Coding Level of Care Code 05753 Initial Inpt Care Lvl 3 Diagnoses Syncope and collapse R55 Acute dehydration E86.0 Hypothermia T68.XXXA Encounter type: initial encounter Acute UTI (urinary tract infection) N39.0 BPH w urinary obs/LUTS N40.1; N13.8 Atrial fibrillation I48.11 Atrial fibrillation type: longstanding persistent GERD without esophagitis K21.9 COPD (chronic obstructive pulmonary disease) J44.9 Acute kidney injury N17.9 (1) Hypothermia Encounter type: initial encounter Qualified Code(s): T68.XXXA - Hypothermia, initial encounter (2) Atrial fibrillation Atrial fibrillation type: longstanding persistent Qualified Code(s): I48.11 - Longstanding persistent atrial fibrillation
--- NOTE | 2021-05-25 21:52 | Communication Note ---
Date of Service: May 25, 2021 Louie Moser M.D. personally saw and evaluated this patient, and participated in their management and care under the supervision of Dr. Viera. Resident Activity Tracking Resident Involvement: Resident Care Provided Care Provided: Adult ED
[2021-05-25 22:12] LABS: Appearance Urine Clear (Clear); Bacteria Urine Automated Negative (Negative); Bilirubin Urine Negative (Negative); Blood Urine Negative (Negative); Color Urine Dark Yellow; Glucose Urine UA Negative (Negative); Ketones Urine Negative (Negative); Leukocyte Esterase Urine Trace (Negative); Nitrite Urine Negative (Negative); Protein Urine 3+ (Negative); RBC Urine Automated 0-4 /hpf (0-4); Specific Gravity Urine 1.032 (1.000-1.030); Urobilinogen Urine Negative (Negative)
[2021-05-26] MEDS ORDERED: DOCUSATE SODIUM/SENNA 50/8.6MG TAB PO PRN (01:14)
[2021-05-26] MEDS ORDERED: ONDANSETRON INJ 2 MG/ML 2 ML VIAL IV PRN (01:14)
[2021-05-26] MEDS ORDERED: ACETAMINOPHEN 325 MG TAB PO PRN (01:14)
[2021-05-26] MEDS ORDERED: ALBUT/IPRATROP 3MG/0.5MG NEB 3 ML VIAL NEB PRN (01:31)
[2021-05-26] MEDS: SODIUM CHLORIDE 0.9% 1000ML 1,000 ML IV SCH ×2 (01:54→12:35)
--- NOTE | 2021-05-26 07:28 | XRay Report ---
XR chest 1V portable HISTORY: 85 years-old Male Chest Pain acute atypical chest pain COMPARISON: Chest radiograph and CTA chest 05/25/2021 TECHNIQUE: AP supine view the chest FINDINGS: Cardiac silhouette is enlarged, unchanged. Calcified plaque of the thoracic aorta. Small pleural effu sions redemonstrated. Minimal bibasilar atelectasis. Unchanged left diaphragmatic elevation. Pulmonar y vascular congestion has progressed from comparison. No pneumothorax or lobar airspace consolidation . Ill-defined opacities of the left midlung are likely secondary to summation density. Degenerative c hanges of the shoulders and spine. IMPRESSION: 1. Cardiomegaly with interval development of pulmonary vascular congestion. 2. Unchanged small pleural effusions. ACT 112: Negative or not required by law. The above report was generated using voice recognition software. It may contain grammatical, syntax o r spelling errors. Electronically signed by: Shin Art M.D. 05/26/2021 7:26 AM
--- NOTE | 2021-05-26 07:41 | Electrocardiogram Report ---
Test Reason : Blood Pressure : / mmHG Vent. Rate : 062 BPM Atrial Rate : 055 BPM P-R Int : 000 ms QRS Dur : 106 ms QT Int : 496 ms P-R-T Axes : 000 -05 226 degrees QTc Int : 503 ms Atrial fibrillation T wave abnormality, consider inferior ischemia T wave abnormality, consider anterolateral ischemia Prolonged QT Abnormal ECG When compared with ECG of 25-MAY-2021 11:34, (unconfirmed) Inverted T waves have replaced nonspecific T wave abnormality in Inferior leads Confirmed by Marquis Block ([id number]) on 05/26/2021 7:41:20 AM Referred By: REFERRED SELF Confirmed By:Arturo Block
[2021-05-26] MEDS ORDERED: ASPIRIN 325 MG ECTAB PO SCH (09:00)
[2021-05-26] MEDS ORDERED: amLODIPine BESYLATE 5 MG TAB PO SCH (09:00)
[2021-05-26] MEDS ORDERED: FINASTERIDE 5 MG TAB PO SCH (09:00)
[2021-05-26] MEDS ORDERED: FAMOTIDINE 20 MG TAB PO SCH (09:00)
[2021-05-26] MEDS: HEPARIN SOD 5,000 UNIT/0.5 ML VIAL SQ SCH ×2 (09:17→20:58)
[2021-05-26 10:01] LABS: Basophils # (auto) 0.01 K/uL (0-0.2); Basophils % (auto) 0.1 %; Hematocrit (blood only) 39.8 % (42-52); Hemoglobin 12.7 g/dL (14.0-18.0); Immature Granulocytes # (auto) 0.03 K/uL (0.00-0.02); Immature Granulocytes % (auto) 0.3 %; Lymphocytes # (auto) 0.59 K/uL (1.2-3.4); Lymphocytes % (auto) 5.4 %; Mean Corpuscular Hemoglobin 27.4 pg (25-34); Mean Corpuscular Hgb Conc 31.9 g/dL (32-36); Mean Corpuscular Volume 85.8 fL (80-100); Mean Platelet Volume 10.1 fL (7.4-10.4); Monocytes # (auto) 1.05 K/uL (0.11-0.59); Monocytes % (auto) 9.6 %; Neutrophils # (auto) 9.23 K/uL (1.4-6.5); Neutrophils % (auto) 84.6 %; Platelet Count 220 K/uL (130-400); RDW Coefficient of Variation 15.8 % (11.5-14.5); RDW Standard Deviation 49.7 fL (36.4-46.3); Red Blood Count 4.64 M/uL (4.7-6.1); White Blood Count 10.91 K/uL (4.8-10.8)
[2021-05-26 10:25] LABS: Alanine Aminotransferase 271 U/L (12-78); Albumin Level 3.1 gm/dl (3.4-5.0); Aspartate Aminotransferase 356 U/L (15-37); BUN Creatinine Ratio 23.3 (10-20); Blood Urea Nitrogen 30 mg/dl (7-18); Carbon Dioxide 16 mmol/L (21-32); Chloride 114 mmol/L (98-107); Creatinine Clr Calc Pharmacy 35.6 ml/min; Est GFR (African American) 57.8 ml/min; Est GFR (Non-African American) 49.9 ml/min; Glucose 116 mg/dl (70-99); Potassium 5.1 mmol/L (3.5-5.1); Sodium 141 mmol/L (136-145)
[2021-05-26 10:29] LABS: Albumin Globulin Ratio 0.8 (0.9-2); Alkaline Phosphatase 108 U/L (45-117); Bilirubin,Total 1.9 mg/dl (0.2-1); Globulin 3.8 gm/dl (2.5-4.0); Total Protein 6.9 gm/dl (6.4-8.2); Troponin I < 0.015 ng/ml (0-0.045)
--- NOTE | 2021-05-26 16:33 | XCELERA ---
[id number]
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
--- NOTE | 2021-05-26 17:19 | Electrocardiogram Report ---
Test Reason : Blood Pressure : / mmHG Vent. Rate : 069 BPM Atrial Rate : 288 BPM P-R Int : 000 ms QRS Dur : 098 ms QT Int : 464 ms P-R-T Axes : 000 031 221 degrees QTc Int : 497 ms Atrial fibrillation Minimal voltage criteria for LVH, may be normal variant T wave abnormality, consider inferolateral ischemia Prolonged QT Abnormal ECG When compared with ECG of 25-MAY-2021 22:29, No significant change was found Confirmed by Marquis Block ([id number]) on 05/26/2021 5:19:02 PM Referred By: REFERRED SELF Confirmed By:Arturo Block
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
--- NOTE | 2021-05-26 17:57 | Billing Data ---
Date of Service May 26, 2021 Coding Level of Care Code 30109 Subseq Hosp Care Lvl 3
[2021-05-26] MEDS ORDERED: METOPROLOL TARTRATE 25 MG TAB PO SCH (18:00)
[2021-05-26] MEDS ORDERED: METOPROLOL TARTRATE 1 MG/ML VIAL IV PRN (18:15)
[2021-05-26] MEDS ORDERED: CEFEPIME 1,000 MG in SYRINGE 0 ML IV SCH (20:00)
[2021-05-26] MEDS ORDERED: TAMSULOSIN HCL 0.4 MG CAP PO SCH (21:00)
[2021-05-26] MEDS ORDERED: FUROSEMIDE INJ 20 MG/2 ML VIAL IV ONE (21:35)
[2021-05-26] MEDS ORDERED: ATROPINE SULFATE 0.1 MG/ML 10ML SYR IV STA (22:43)
--- NOTE | 2021-05-26 23:38 | Communication Note ---
Date of Service: May 26, 2021 Night team messaged by nursing at 9:13 pm: they were unable to obtain a pulse ox reading on patient. His lips were also reportedly blue - although they had been that way since he was transferred [facility]. Nursing also expressed concerns about lung sounds. Vitals were as follows: temp 36.6, HR 62bpm, RR 18, BP 154/79. On my assessment, the patient had shallow respirations but good air movement. There were crackles in b/l lung bases. He was clinically dry on admission - however his EF was only 25%. He had received several liters of IV since admission - I discontinued maintenance fluids and order 20mg IV lasix. At 10:33pm nursing notified night team that patient's HR was running between 30- 40 bpm while patient was sleeping. At 10:38 pm the HR was running steady at 32 bpm. I placed an order for a STAT EKG and 1mg IV Atropine STAT. Prior to the to EKG being obtained, the patient . His code status was DNR/DNI. Nurse to nurse pronouncement was ordered. I spoke with son Christiano Varela and notified him of patient's .
--- NOTE | 2021-05-27 03:08 | Death Pronouncement Note ---
Date of Service May 27, 2021 Pronouncement Note Admission Date Admission Date: May 25, 2021 Date and Time of Date of : 05/26/21 Time of : 22:34 Contributing Factors (1) Syncope and collapse: (2) Acute kidney injury: (3) BPH w urinary obs/LUTS: (4) Cardiomyopathy: (5) Atrial fibrillation: Summary Additional details: please see supplemental communication note for details Additional Data Attending physician: Fredrick Park, DO Was code activated?: No Autopsy requested?: No
--- NOTE | 2021-05-27 06:46 | Discharge Summary ---
Date of Service May 27, 2021 Principal Diagnosis . Discharge Exam Patient . Please refer to note written by Dr. Jenkins. Discharge Data Allergies Allergy/AdvReac Type Severity Reaction Status Date / Time No Known Drug Allergies Allergy Verified 05/25/21 14:35 Consultations 05/25/21 21:02 ED Decision to Admit Stat 05/26/21 10:53 Consult Cardiology Routine Hospital Course (1) Syncope and collapse: Patient due to progressively worsening bradycardia likely due to cardiomyopathy. This the hospital course below. (1) Syncope and collapse: Plan: -Initially there was concern about cardiac arrest, as patient did undergo CPR by family. -Suspecting cardiogenic cause due to recently discovered cardiomyopathy as well as evidence of end-organ damage as given evidenced by elevated liver enzymes, elevated lactate, and TREY. -Could be due to malignant rhythms such as V. tach or V. fib that caused syncope. Patient is being monitored with telemetry. -Troponin negative -Patient received 2 L normal saline in the ED via bolus, then admitted on NSS at 80 mils per hour -Full liquid diet -Cardiology consulted, appreciate consult (2) Cardiomyopathy -Severely reduced ejection fraction noted on echocardiogram -Monitor volume status daily, patient currently euvolemic. -Beta-blockade begun by cardiology (3) Hypothermia: Plan: -Placed on IV warming blanket while in the ED, and will be continued via protocol until normal body temperature is maintained -Resolved (4) BPH w urinary obs/LUTS: Plan: BPH with LUTS/prostatitis/UTI- -Follow urine culture and sensitivity, pending -Continue cefepime IV begun in the ED -Continue tamsulosin 0.8 mg at bedtime, and finasteride 5 mg every morning -Nguyễn catheter placed today. (5) Acute UTI (urinary tract infection): Plan: See above (6) Acute kidney injury: Plan: -Creatinine 1.67 upon admission, now at 1.29 with baseline of 1.03 -Rehydrate as noted above, recheck laboratories in a.m. (7) Atrial fibrillation: Plan: Atrial fibrillation/hypertension- -Continue amlodipine. -Cardiology began metoprolol tartrate 12.5 mg twice daily. -Hold HCTZ and losartan due to TREY (8) GERD without esophagitis: Plan: -Resume famotidine in a.m. (9) COPD (chronic obstructive pulmonary disease): Plan: -DuoNebs every 2 hours as needed (2) Acute kidney injury: (3) BPH w urinary obs/LUTS: (4) Cardiomyopathy: (5) Atrial fibrillation: Total Time Total Time Spent Total Time Spent (In Minutes): 0 Discharge Plan Discharge Items Patient Disposition: Other Date/Time: 05/26/21 23:04
== END 2021-05-27 01:13 | disposition expired | DRG 315 ==
LOC: ED 20:07 → SUATTDRO 21:50 → 3N 21:50 → 2W 05-26 09:01